=== PATIENT | female | born 1930 | race American Indian/Alaskan Native ===

== ENCOUNTER 2019-04-28 06:52 | Day surgery (SDC) | payer MEDICARE ==
[2019-04-28] MEDS ORDERED: XYLOCAINE 1%/ EPI 1:100,000 INFILTRATI ONE (08:37)
[2019-04-28] MEDS ORDERED: CALAN ONE (08:37)
[2019-04-28] MEDS ORDERED: HEPARIN/NS 5000 UNIT/500ML(CATH LAB) 1,000 ML IR ONE (08:37)
[2019-04-28] MEDS ORDERED: NITROGLYCERIN SYRINGE 3 ML ONE (08:39)
[2019-04-28] MEDS ORDERED: ANCEF/STERILE WATER 2 GM/20 ML 2 GM/20 ML SYRINGE IV ONE (08:40)
[2019-04-28 09:07] LABS: Hematocrit 34.9 % (30.3-42.9); Hemoglobin 11.7 gm/dl (10.1-14.3); Mean Corpuscular HGB Conc 33 % (30-34); Mean Corpuscular Volume 97 fl (79-97); Platelet Count 229 K/mm3 (140-440); Red Blood Count 3.59 M/mm3 (3.65-5.03); Red Cell Distribution Width 15.3 % (13.2-15.2)
[2019-04-28 09:19] LABS: Calcium 9.4 mg/dL (8.4-10.2)
[2019-04-28 09:33] LABS: INR 1.06 (0.87-1.13)
[2019-04-28 09:34] LABS: Partial Thromboplastin Time 25.2 Sec. (24.2-36.6)
[2019-04-28] MEDS ORDERED: SUBLIMAZE ONE (09:54)
[2019-04-28] MEDS: VERSED ONE ×2 (09:55→10:12)
[2019-04-28] MEDS ORDERED: NACL 0.9% 500 ML 500 ML IV SCH (10:00)
[2019-04-28] MEDS: HEPARIN 10,000 UNITS/10 ML ONE ×2 (10:04→10:06)
--- NOTE | 2019-04-28 12:26 | Short Stay Summary ---
Short Stay Documentation Date of service: 04/28/19 Narrative H&P: Nonhealing ulcerations of the feet with nonpalpable pedal pulses. See H&P. - History Principal diagnosis: PVD with ulceration H&P: obtained from office - Allergies and Medications Current Medications: Allergies Sulfa (Sulfonamide Antibiotics) Allergy (Unverified 04/28/19 06:53) Swelling Home Medications Medication Instructions Recorded Confirmed Last Taken Type Allopurinol [Zyloprim] 100 mg PO QDAY 04/28/19 04/28/19 04/27/19 History 1 tab Insulin Degludec [Tresiba 30 units SUB-Q QDAY 04/28/19 04/28/19 04/27/19 History Flextouch U-100] 30 units Losartan [Cozaar] 50 mg PO QDAY 04/28/19 04/28/19 04/27/19 History 1 tab Metoprolol [Lopressor TAB] 50 mg PO QDAY 04/28/19 04/28/19 04/27/19 History 1 tab Pregabalin [Lyrica] 50 mg PO QDAY 04/28/19 04/28/19 04/27/19 History 1 tab Simvastatin 20 mg PO QDAY 04/28/19 04/28/19 04/27/19 History 1 tab amLODIPine [Norvasc] 2.5 mg PO DAILY 04/28/19 04/28/19 04/27/19 History 1 tab Active Medications Sodium Chloride (Nacl 0.9% 500 Ml) 500 mls @ 50 mls/hr IV DIRECT [place] Last Admin: 04/28/19 10:03 Dose: 250 mls Documented by: - Physical exam General appearance: mild distress (at ulcer sites of feet) Lungs: Normal air movement Heart: Regular rate Gastrointestinal: obese Extremities: normal temperature, normal color, abnormal (ulcers of heels) - Brief post op/procedure progress note Date of procedure: 04/28/19 Pre-op diagnosis: PVD with ulceration Post-op diagnosis: same Procedure: Diagnostic angiogram of the lower extremities Total contrast use 6 mL contrast and CO2 gas Anesthesia: local (w/ conscious sedation) Surgeon: SUDHAKAR DUNN Estimated blood loss: minimal Condition: stable - Hospital course Hospital course: Tolerated procedure well. No issues. - Disposition Condition at discharge: Stable Disposition: DC- TO HOME OR SELFCARE - Discharge Diagnoses (1) Atherosclerotic PVD with ulceration Status: Acute (2) Critical ischemia of lower extremity Status: Acute (3) Diabetes mellitus with peripheral artery disease Status: Acute (4) CRI (chronic renal insufficiency) Status: Acute Short Stay Discharge Plan Activity: advance as tolerated Weight Bearing Status: Weight Bear as Tolerated Diet: diabetic Wound: keep clean and dry, other (do not lift more than 10 lbs with left hand for 1 week) Follow up with: STEPHEN CARTY [Other] - 7 Days
--- NOTE | 2019-04-28 12:51 | Operative Report ---
Operative Report Operative Report: EXAM: 1. Ultrasound-guided access of the left radial artery. 2. Selection of the abdominal aorta with CO2 contrast angiography. 3. Selection of the right superficial femoral artery with CO2 contrast angiography and angiography. 4. Selection of the left superficial femoral artery with CO2 contrast angiogra phy and angiography. DATE: 04/28/19 LITHOGRAPHIC ETCHER: SUDHAKAR DUNN MD INDICATION: Nonhealing ulcers of the bilateral lower extremities with peripheral vascular disease and nonpalpable pedal pulses. MEDICATIONS: Please see nursing report for full details. DEVICES: None. CONTRAST: 6 mLs of nonionic contrast and CO2. PROCEDURE: The risks, benefits, and alternatives were discussed with the family and the patient; written informed consent was obtained. Left wrist was prepped and draped in a sterile fashion. The left radial artery was patent under ultrasound evaluation. Under direct ultrasound guidance, left radial artery was accessed with a 21-gauge micropuncture needle. 0.018 inch wire was passed into the radial artery. Needle was exchanged for a 4/5 glidesheath slender sheath. Radial cocktail was administered. Additional heparin was administered. The descending thoracic aorta was selected, and the abdominal aorta was selected, and then the infrarenal abdominal aorta was selected. Pigtail CO2 angiography was performed. The right superficial femoral artery was selected and CO2 angiography was performed. Contrast angiography was performed of the tibial vessels excluding the proximal tibial vessels. Catheter was retracted and repeated CO2 angiography was performed until the entire right lower limb was evaluated. The left superficial femoral artery was selected and CO2 angiography was performed. Contrast angiography was performed of the tibial vessels. Catheter was retracted and repeated CO2 angiography was performed until the entire left lower limb was evaluated. All wires, catheters, and sheaths were removed ; TR bandage was applied. FINDINGS: AORTA: The infrarenal abdominal aorta is patent. RIGHT LOWER EXTREMITY: The right common iliac artery, right internal iliac artery, right external iliac artery, right common femoral artery, and right profunda femoral artery are patent. The right proximal superficial femoral artery has a 10-20% narrowing. The right mid superficial femoral artery has a 20% narrowing. The right distal superficial femoral artery has a 80-90% 5 cm area of narrowing. The right above the knee popliteal artery has a 30% area of narrowing. Right mid popliteal artery has a 70-80% 4-5 cm area of narrowing. The right below the knee popliteal artery has a 50% area of narrowing. The anterior tibial artery is patent for the first few centimeters and then becomes atretic without reconstitution at the ankle. The tibioperoneal trunk is patent. The peroneal artery is patent for 3-4 cm and is then occluded without reconstitution at the ankle. The right posterior tibial artery is the dominant foot of the foot and is only 2.5 mm in diameter. There may be a proximal posterior tibial artery stenosis but it is difficult to see on CO2 angiography. LEFT LOWER EXTREMITY: The left common iliac artery, left internal iliac artery, left external iliac artery, left common femoral artery, and left profundofemoral artery are patent. The left superficial femoral artery has a 30%-40% ostial narrowing. The left mid superficial femoral artery is patent. The left distal superficial femoral artery has a 5 cm 90% narrowing. The left popliteal artery has a 7 cm 70% narrowing which extends from the above the knee popliteal to the mid popliteal artery. Below the knee popliteal artery is patent. The anterior tibial artery is patent for approximately 10 cm and subsequently becomes atretic with very diminutive late reconstitution at the ankle. The tibioperoneal trunk is patent and very short. The peroneal artery is patent for approximately 10 cm and then becomes with very late diminutive reconstitution at the ankle. The left posterior tibial artery has a small 20% narrowing at its ostium but is otherwise patent throughout the course and provides good flow to the ankle. IMPRESSION: Successful bilateral lower extremity angiography and selections.
[2019-04-28 13:41] VITALS: BP 151/78
== END 2019-04-28 14:20 | disposition home or self-care (01) ==
LOC: CATHLABREC 06:52
PROVIDERS: ATTEND Radiology Diagnostic Radiology
DX: I70.245 Atherosclerosis of native arteries of left leg with ulceration of other part of foot (principal); I70.235 Atherosclerosis of native arteries of right leg with ulceration of other part of foot; E11.51 Type 2 diabetes mellitus with diabetic peripheral angiopathy without gangrene; I10 Essential (primary) hypertension; M10.9 Gout, unspecified; Z88.2 Allergy status to sulfonamides; Z79.4 Long term (current) use of insulin; Z79.899 Other long term (current) drug therapy; Z79.01 Long term (current) use of anticoagulants
CPT/HCPCS: 36247; 36415; 75625; 75716; 76937; 80048; 82962; 85027; 85610; 85730; 99156; 99157; C1769; C1887; C1894; J0690; J1644; J2250; J3010; J7040; Q9967

== ENCOUNTER 2019-10-13 23:11 | Inpatient (IN) | payer MEDICARE ==
[2019-10-14 00:13] LABS: Hemoglobin 12.3 gm/dl (10.1-14.3); Mean Corpuscular HGB Conc 33 % (30-34); Mean Corpuscular Volume 98 fl (79-97); Platelet Count 231 K/mm3 (140-440); Red Blood Count 3.77 M/mm3 (3.65-5.03); Red Cell Distribution Width 14.8 % (13.2-15.2)
[2019-10-14 00:28] LABS: Calcium 9.5 mg/dL (8.4-10.2)
--- NOTE | 2019-10-14 01:46 | Emergency Department Report ---
ED Abdominal Pain HPI - General Chief Complaint: Abdominal Pain Stated Complaint: STOMACH PAIN Time Seen by Provider: 10/14/19 01:04 Source: patient, family (2 daughters at the bedside), old records reviewed Mode of arrival: Wheelchair Limitations: No Limitations - History of Present Illness Initial Comments: Mrs. Yousif is a very pleasant 89 yo female with hx of IDDM, HTN, gout, PVD who presents with 3 weeks of RLQ abdominal pain and vomiting for 3 weeks. The pain has been intermittent but more severe and persistent recently. She has had a recent BM. Ate lunch 1 PM. Now severe sharp pain. NO radiation. Severe nausea with vomiting. NO hx of colonoscopy as she can recall. Hx of tubal ligation. NO abdominal surgery otherwise. In April, she underwent PVD evaluation with angiography by Dr. Driver. She has limited mobility due to PVD and leg pain. She can weightbear and transfer but needs assistance with ambulation. Pain is worse with eating. She is followed at [facility] Complaint: abdominal pain -: Gradual, week(s) (3) Location: RLQ Radiation: none Migration to: no migration Severity: severe Severity scale (0 -10): 8 Quality: sharp Consistency: constant Improves With: nothing Worsens With: eating Associated Symptoms: nausea, vomiting - Related Data Home Medications Medication Instructions Recorded Confirmed Last Taken Allopurinol [Zyloprim] 100 mg PO QDAY 04/28/19 04/28/19 04/27/19 1 tab Insulin Degludec (Nf) [Tresiba 30 units SUB-Q QDAY 04/28/19 04/28/19 04/27/19 Flextouch U-100 (Nf)] 30 units Losartan [Cozaar] 50 mg PO QDAY 04/28/19 04/28/19 04/27/19 1 tab Metoprolol [Lopressor TAB] 50 mg PO QDAY 04/28/19 04/28/19 04/27/19 1 tab Pregabalin [Lyrica] 50 mg PO QDAY 04/28/19 04/28/19 04/27/19 1 tab Simvastatin 20 mg PO QDAY 04/28/19 04/28/19 04/27/19 1 tab amLODIPine [Norvasc] 2.5 mg PO DAILY 04/28/19 04/28/19 04/27/19 1 tab Allergies Allergy/AdvReac Type Severity Reaction Status Date / Time Sulfa (Sulfonamide Allergy Swelling Unverified 04/28/19 06:53 Antibiotics) ED Review of Systems ROS: Stated complaint: STOMACH PAIN Other details as noted in HPI Comment: All other systems reviewed and negative Constitutional: malaise. denies: chills, fever Cardiovascular: denies: chest pain Gastrointestinal: abdominal pain, nausea, vomiting ED Past Medical Hx - Past Medical History Previous Medical History?: Yes Hx Hypertension: Yes Hx Diabetes: Yes - Surgical History Past Surgical History?: Yes Additional Surgical History: Vascular surgery to open up veins - Social History Smoking Status: Never Smoker - Medications Home Medications: Home Medications Medication Instructions Recorded Confirmed Last Taken Type Allopurinol [Zyloprim] 100 mg PO QDAY 04/28/19 04/28/19 04/27/19 History 1 tab Insulin Degludec (Nf) [Tresiba 30 units SUB-Q QDAY 04/28/19 04/28/19 04/27/19 History Flextouch U-100 (Nf)] 30 units Losartan [Cozaar] 50 mg PO QDAY 04/28/19 04/28/19 04/27/19 History 1 tab Metoprolol [Lopressor TAB] 50 mg PO QDAY 04/28/19 04/28/19 04/27/19 History 1 tab Pregabalin [Lyrica] 50 mg PO QDAY 04/28/19 04/28/19 04/27/19 History 1 tab Simvastatin 20 mg PO QDAY 04/28/19 04/28/19 04/27/19 History 1 tab amLODIPine [Norvasc] 2.5 mg PO DAILY 04/28/19 04/28/19 04/27/19 History 1 tab ED Physical Exam - General Limitations: No Limitations General appearance: alert, other (appears in pain, appears ill) - Head Head exam: Present: atraumatic, normocephalic - Eye Eye exam: Present: normal appearance - ENT ENT exam: Present: mucous membranes moist - Neck Neck exam: Present: normal inspection, full ROM - Respiratory Respiratory exam: Present: normal lung sounds bilaterally. Absent: respiratory distress, wheezes, rales, rhonchi - Cardiovascular Cardiovascular Exam: Present: regular rate, normal rhythm, normal heart sounds. Absent: systolic murmur, diastolic murmur, rubs, gallop - GI/Abdominal GI/Abdominal exam: Present: soft, tenderness, guarding. Absent: distended, rebound - Neurological Exam Neurological exam: Present: alert, oriented X3 - Psychiatric Psychiatric exam: Present: normal affect, normal mood - Skin Skin exam: Present: warm, dry, intact, normal color. Absent: rash ED Course Vital Signs 10/14/19 01:05 Temperature 97.4 F L Pulse Rate 91 H Respiratory 19 Rate Blood Pressure 156/70 [Right] O2 Sat by Pulse 99 Oximetry ED Medical Decision Making - Lab Data Result diagrams: 10/13/19 23:40 10/13/19 23:40 - Radiology Data Radiology results: report reviewed CT abdomen and pelvis: Irregular thickened bladder wall likely infectious process, cholelithiasis - Medical Decision Making Mrs. Yousif presents with 3 weeks of abdominal pain nausea vomiting. CT abdomen and pelvis reveals cholelithiasis and cystitis findings of cystitis. Due to severe discomfort and tenderness I have consulted general surgeon on-call Dr. Benson. Admitted to hospitalist service IV abx IVF and IV analgesia provided in the ED Critical care attestation.: If time is entered above; I have spent that time in minutes in the direct care of this critically ill patient, excluding procedure time. ED Disposition Clinical Impression: Acute cystitis, Cholelithiasis, Acute abdominal pain Disposition: OP ADMIT IP TO THIS HOSP Is pt being admited?: Yes Does the pt Need Aspirin: No Condition: Stable
--- NOTE | 2019-10-14 02:07 | Cat Scan Report ---
CT ABDOMEN AND PELVIS WITHOUT CONTRAST INDICATION / CLINICAL INFORMATION: RLQ pain. Right lower quadrant abdominal pain TECHNIQUE: Axial CT images were obtained through the abdomen and pelvis without IV contrast. All CT scans at [facility] hospital location are performed using CT dose reduction for ALARA by means of automated exposure control. COMPARISON: None available. FINDINGS: LOWER CHEST: No significant abnormality. LIVER: No significant abnormality. GALLBLADDER: Gallstones. BILE DUCTS: No significant abnormality. PANCREAS: No significant abnormality. SPLEEN: No significant abnormality. ADRENALS: No significant abnormality. RIGHT KIDNEY and URETER: No significant abnormality. LEFT KIDNEY and URETER: No significant abnormality. STOMACH and SMALL BOWEL: No significant abnormality. COLON: No significant abnormality. APPENDIX: No significant abnormality. PERITONEUM: No free fluid. No free air. No fluid collection. LYMPH NODES: No significant adenopathy. AORTA and ARTERIES: No significant abnormality. IVC and VEINS: No significant abnormality. URINARY BLADDER: Diffusely thickened and irregular wall.. REPRODUCTIVE ORGANS: A large amount of gas is noted within the endometrial canal. 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 ADDITIONAL FINDINGS: None. SKELETAL SYSTEM: No significant abnormality. IMPRESSION: Abnormally thickened urinary bladder wall which could be secondary to infectious cystitis. Gallstones with nonobstructive nephrolithiasis incidentally noted. Signer Name: Ian Mckeon MD Signed: 10/14/2019 2:02 AM Workstation Name: [employer]
[2019-10-14] MEDS ORDERED: cefTRIAXone/NS 2 GM/100 ML 2 GM/100 ML BAG IV ONE (02:59)
[2019-10-14 03:25] LABS: Amorphous Crystals,Urine Few; Bacteria,Urine 4+ /HPF (Negative); Bilirubin,Urine NEG (Negative); Blood,Urine MOD (Negative); Color,Urine Yellow (Yellow); Mucus,Urine FEW /HPF; Urobilinogen,Urine < 2.0 mg/dL (<2.0)
[2019-10-14 04:20] LABS: Band Neutrophils # (Manual) 0.1 K/mm3; Basophils % (Manual) 0 % (0.0-1.8); Eosinophils % (Manual) 0 % (0.0-4.3); Total Cells Counted 100
[2019-10-14 04:23] LABS: Platelet Estimate Consistent w Auto
[2019-10-14] MEDS ORDERED: DEXTROSE 50% IN WATER (25GM) 50 ML SYRINGE IV PRN (04:34)
[2019-10-14] MEDS ORDERED: ACETAMINOPHEN 325 MG TAB PO PRN (04:34)
--- NOTE | 2019-10-14 04:51 | Progress Note ---
Assessment and Plan Full consult dictated: 89 y/o female non specific abd pain. + N&V CT - gallstones. no evidence of cholecystitis. Thickened urinary bladder and borderline renal function. denies dysuria. labs as below. cystitis? Keep NPO HIDA scan. GB US will follow. Chief Complaint: Abdominal Pain Stated Complaint: STOMACH PAIN Time Seen by Provider: 10/14/19 01:04 Source: patient, family (2 daughters at the bedside), old records reviewed Mode of arrival: Wheelchair Limitations: No Limitations - History of Present Illness Initial Comments: Mrs. Yousif is a very pleasant 89 yo female with hx of IDDM, HTN, gout, PVD who presents with 3 weeks of RLQ abdominal pain and vomiting for 3 weeks. The pain has been intermittent but more severe and persistent recently. She has had a recent BM. Ate lunch 1 PM. Now severe sharp pain. NO radiation. Severe nausea with vomiting. NO hx of colonoscopy as she can recall. Hx of tubal ligation. NO abdominal surgery otherwise. In April, she underwent PVD evaluation with angiography by Dr. Driver. She has limited mobility due to PVD and leg pain. She can weightbear and transfer but needs assistance with ambulation. Pain is worse with eating. [facility] Complaint: abdominal pain -: Gradual, week(s) (3) Location: RLQ Radiation: none Migration to: no migration Severity: severe Severity scale (0 -10): 8 Quality: sharp Consistency: constant Improves With: nothing Worsens With: eating Associated Symptoms: nausea, vomiting Selected Entries 10/14/19 01:05 Temperature 97.4 F L Pulse Rate 91 H Respiratory 19 Rate Blood Pressure 156/70 [Right] Laboratory Tests 10/13/19 10/13/19 23:40 23:40 WBC 8.8 Hgb 12.3 Hct 37.0 Sodium 141 Potassium 4.9 Chloride 109.3 H BUN 39 H Creatinine 2.1 H Total Bilirubin 0.30 AST 18 ALT 28 Alkaline Phosphatase 112 Lipase 31 Objective Vital Signs - 12hr 10/14/19 01:05 Temperature 97.4 F L Pulse Rate 91 H Respiratory 19 Rate Blood Pressure 156/70 [Right] O2 Sat by Pulse 99 Oximetry - Labs 10/13/19 23:40 10/13/19 23:40 Diabetes panel 10/13/19 Range/Units 23:40 Sodium 141 (137-145) mmol/L Potassium 4.9 (3.6-5.0) mmol/L Chloride 109.3 H (98-107) mmol/L Carbon Dioxide 19 L (22-30) mmol/L BUN 39 H (7-17) mg/dL Creatinine 2.1 H (0.7-1.2) mg/dL Glucose 204 H (65-100) mg/dL Calcium 9.5 (8.4-10.2) mg/dL AST 18 (5-40) units/L ALT 28 (7-56) units/L Alkaline Phosphatase 112 (35-129) units/L Total Protein 7.0 (6.3-8.2) g/dL Albumin 4.0 (3.9-5) g/dL Calcium panel 10/13/19 Range/Units 23:40 Calcium 9.5 (8.4-10.2) mg/dL Albumin 4.0 (3.9-5) g/dL Pituitary panel 10/13/19 Range/Units 23:40 Sodium 141 (137-145) mmol/L Potassium 4.9 (3.6-5.0) mmol/L Chloride 109.3 H (98-107) mmol/L Carbon Dioxide 19 L (22-30) mmol/L BUN 39 H (7-17) mg/dL Creatinine 2.1 H (0.7-1.2) mg/dL Glucose 204 H (65-100) mg/dL Calcium 9.5 (8.4-10.2) mg/dL Adrenal panel 10/13/19 Range/Units 23:40 Sodium 141 (137-145) mmol/L Potassium 4.9 (3.6-5.0) mmol/L Chloride 109.3 H (98-107) mmol/L Carbon Dioxide 19 L (22-30) mmol/L BUN 39 H (7-17) mg/dL Creatinine 2.1 H (0.7-1.2) mg/dL Glucose 204 H (65-100) mg/dL Calcium 9.5 (8.4-10.2) mg/dL Total Bilirubin 0.30 (0.1-1.2) mg/dL AST 18 (5-40) units/L ALT 28 (7-56) units/L Alkaline Phosphatase 112 (35-129) units/L Total Protein 7.0 (6.3-8.2) g/dL Albumin 4.0 (3.9-5) g/dL
[2019-10-14] MEDS ORDERED: SODIUM CHLORIDE 0.45% 1000 ML 1,000 ML IV SCH (05:00)
--- NOTE | 2019-10-14 05:09 | History and Physical Report ---
<MIRACLE MACKAY - Last Filed: 10/14/19 05:16> History of Present Illness Date of examination: 10/14/19 Date of admission: 10/14/2019 Chief complaint: N/V, abdominal pain History of present illness: 89-year-old -[place]ij[place] female with history of recurrent urinary tract infections, IDDM, hypertension, gout, PVD who presents to [facility] with complaints of nausea, vomiting, abdominal pain for the past 3 weeks. Patient's daughter are present at bedside and have persisted in providing history. According to patient's daughter patient has experienced intermittent abdominal pain, nausea and vomiting for the past 3 weeks however over the past day her complaints are more frequent/persistent. She complains of right upper quadrant 5/10 abdominal pain. The pain is unprovoked and relieved by pain medication and rest. Denies fever, chill, diarrhea or recent sick contact. Past History Past Medical History: diabetes, hypertension, PVD, other (gout, recurrent UTI) Past Surgical History: Other (Vascular surgery to open up veins 04/2019) Social history: lives with family Family history: no significant family history Medications and Allergies Allergies Allergy/AdvReac Type Severity Reaction Status Date / Time Sulfa (Sulfonamide Allergy Swelling Unverified 04/28/19 06:53 Antibiotics) Home Medications Medication Instructions Recorded Confirmed Last Taken Type Allopurinol [Zyloprim] 100 mg PO QDAY 04/28/19 10/14/19 04/27/19 History 1 tab Insulin Degludec (Nf) [Tresiba 30 units SUB-Q QDAY 04/28/19 10/14/19 04/27/19 History Flextouch U-100 (Nf)] 30 units Losartan [Cozaar] 50 mg PO QDAY 04/28/19 10/14/19 04/27/19 History 1 tab Metoprolol [Lopressor TAB] 50 mg PO QDAY 04/28/19 10/14/19 04/27/19 History 1 tab Pregabalin [Lyrica] 50 mg PO QDAY 04/28/19 10/14/19 04/27/19 History 1 tab Simvastatin 20 mg PO QDAY 04/28/19 10/14/19 04/27/19 History 1 tab amLODIPine [Norvasc] 2.5 mg PO DAILY 04/28/19 10/14/19 04/27/19 History 1 tab Clopidogrel [Plavix] 75 mg PO QDAY 10/14/19 10/14/19 Unknown History DULoxetine [Cymbalta] 30 mg PO QDAY 10/14/19 10/14/19 Unknown History Esomeprazole Magnesium [NexIUM] 40 mg PO QDAY 10/14/19 10/14/19 Unknown History Ondansetron [Zofran Odt] 4 mg PO Q12HR PRN 10/14/19 10/14/19 Unknown History Active Meds: Active Medications Acetaminophen (Tylenol) 650 mg PO Q4H PRN PRN Reason: Pain MILD(1-3)/Fever >100.5/[facility] Allopurinol (Zyloprim) 100 mg PO QDAY [facility] Amlodipine Besylate (Amlodipine) 2.5 mg PO DAILY [facility] Clopidogrel Bisulfate (Plavix) 75 mg PO QDAY [facility] Dextrose (D50w (25gm) Syringe) 50 ml IV Q30MIN PRN; Protocol PRN Reason: Hypoglycemia Docusate Sodium (Colace) 100 mg PO BID [facility] Duloxetine HCl (Cymbalta) 30 mg PO QDAY [facility] Sodium Chloride (Nacl 0.45% 1000 Ml) 1,000 mls @ 100 mls/hr IV DIRECT [place] Ceftriaxone Sodium (Rocephin/Ns 1 Gm/50 Ml) 1 gm in 50 mls @ 100 mls/hr IV Q24HR [place]; Protocol Insulin Glargine (Lantus) 10 units SUB-Q QHS [facility] Insulin Human Lispro (Humalog) 0 unit SUB-Q ACHS [place]; Protocol Losartan Potassium (Cozaar) 50 mg PO QDAY [facility] Metoprolol Tartrate (Metoprolol) 50 mg PO QDAY [facility] Miscellaneous Medication (Simvastatin [Simvastatin]) 20 mg PO QDAY [facility] Ondansetron HCl (Zofran) 4 mg IV Q8H PRN PRN Reason: Nausea And Vomiting Sodium Chloride (Sodium Chloride Flush Syringe 10 Ml) 10 ml IV BID [facility] Sodium Chloride (Sodium Chloride Flush Syringe 10 Ml) 10 ml IV PRN PRN PRN Reason: LINE FLUSH Review of Systems All systems: negative Constitutional: malaise Gastrointestinal: abdominal pain, nausea, vomiting Exam - Physical Exam Narrative exam: General appearance: Present:mild discomfort, alert and orientedx3, well developed, older adult female - EENT Eyes: Present: PERRL, EOM intact ENT: Hard of hearing, missing teeth - Neck Neck: Present: supple, normal ROM - Respiratory Respiratory effort: Non-labored Respiratory: bilateral: CTA with diminished bases bilaterally - Cardiovascular Heart rate:91 (bpm) Rhythm:SR Heart Sounds: Present: S1, S2. - Extremities Extremities: no ischemia, pulses intact, BLE edema R>L - Peripheral Assessment Peripheral Pulses: within normal limits - Abdominal General gastrointestinal: soft, tenderness to RUQ, normal bowel sounds, - Integumentary Integumentary: Present: warm, dry - Musculoskeletal Musculoskeletal: generalized weakness, able to move all extremities -Neurological Neurological: CN II-XII grossly intact - Psychiatric Psychiatric: cooperative - Constitutional Vitals: Temp Pulse Resp BP Pulse Ox 97.4 F L 91 H 19 156/70 99 10/14/19 01:05 10/14/19 01:05 10/14/19 01:05 10/14/19 01:05 10/14/19 01:05 Results - Labs CBC & Chem 7: 10/13/19 23:40 10/13/19 23:40 Labs: Laboratory Last Values WBC 8.8 K/mm3 (4.5-11.0) 10/13/19 23:40 RBC 3.77 M/mm3 (3.65-5.03) 10/13/19 23:40 Hgb 12.3 gm/dl (10.1-14.3) 10/13/19 23:40 Hct 37.0 % (30.3-42.9) 10/13/19 23:40 MCV 98 fl (79-97) H 10/13/19 23:40 MCH 33 pg (28-32) H 10/13/19 23:40 MCHC 33 % (30-34) 10/13/19 23:40 RDW 14.8 % (13.2-15.2) 10/13/19 23:40 Plt Count 231 K/mm3 (140-440) 10/13/19 23:40 Add Manual Diff Complete 10/13/19 23:40 Total Counted 100 10/13/19 23:40 Seg Neutrophils % Commutator Presser 10/13/19 23:40 Seg Neuts % (Manual) 91.0 % (40.0-70.0) H 10/13/19 23:40 Band Neutrophils % 1.0 % 10/13/19 23:40 Lymphocytes % (Manual) 6.0 % (13.4-35.0) L 10/13/19 23:40 Reactive Lymphs % (Man) 0 % 10/13/19 23:40 Monocytes % (Manual) 2.0 % (0.0-7.3) 10/13/19 23:40 Eosinophils % (Manual) 0 % (0.0-4.3) 10/13/19 23:40 Basophils % (Manual) 0 % (0.0-1.8) 10/13/19 23:40 Metamyelocytes % 0 % 10/13/19 23:40 Myelocytes % 0 % 10/13/19 23:40 Promyelocytes % 0 % 10/13/19 23:40 Blast Cells % 0 % 10/13/19 23:40 Nucleated RBC % Not Reportable 10/13/19 23:40 Seg Neutrophils # Man 8.0 K/mm3 (1.8-7.7) H 10/13/19 23:40 Band Neutrophils # 0.1 K/mm3 10/13/19 23:40 Lymphocytes # (Manual) 0.5 K/mm3 (1.2-5.4) L 10/13/19 23:40 Abs React Lymphs (Man) 0.0 K/mm3 10/13/19 23:40 Monocytes # (Manual) 0.2 K/mm3 (0.0-0.8) 10/13/19 23:40 Eosinophils # (Manual) 0.0 K/mm3 (0.0-0.4) 10/13/19 23:40 Basophils # (Manual) 0.0 K/mm3 (0.0-0.1) 10/13/19 23:40 Metamyelocytes # 0.0 K/mm3 10/13/19 23:40 Myelocytes # 0.0 K/mm3 10/13/19 23:40 Promyelocytes # 0.0 K/mm3 10/13/19 23:40 Blast Cells # 0.0 K/mm3 10/13/19 23:40 WBC Morphology Not Reportable 10/13/19 23:40 Hypersegmented Neuts Not Reportable 10/13/19 23:40 Hyposegmented Neuts Not Reportable 10/13/19 23:40 Hypogranular Neuts Not Reportable 10/13/19 23:40 Smudge Cells Not Reportable 10/13/19 23:40 Toxic Granulation Not Reportable 10/13/19 23:40 Toxic Vacuolation Not Reportable 10/13/19 23:40 Dohle Bodies Not Reportable 10/13/19 23:40 Pelger-Huet Anomaly Not Reportable 10/13/19 23:40 Sami Rods Not Reportable 10/13/19 23:40 Platelet Estimate Consistent w auto 10/13/19 23:40 Clumped Platelets Not Reportable 10/13/19 23:40 Plt Clumps, EDTA Not Reportable 10/13/19 23:40 Large Platelets Not Reportable 10/13/19 23:40 Giant Platelets Not Reportable 10/13/19 23:40 Platelet Satelliting Not Reportable 10/13/19 23:40 Plt Morphology Comment Not Reportable 10/13/19 23:40 RBC Morphology Not Reportable 10/13/19 23:40 Dimorphic RBCs Not Reportable 10/13/19 23:40 Polychromasia Not Reportable 10/13/19 23:40 Hypochromasia Not Reportable 10/13/19 23:40 Poikilocytosis Not Reportable 10/13/19 23:40 Anisocytosis Not Reportable 10/13/19 23:40 Microcytosis Not Reportable 10/13/19 23:40 Macrocytosis Not Reportable 10/13/19 23:40 Spherocytes Not Reportable 10/13/19 23:40 Pappenheimer Bodies Not Reportable 10/13/19 23:40 Sickle Cells Not Reportable 10/13/19 23:40 Target Cells Not Reportable 10/13/19 23:40 Tear Drop Cells Not Reportable 10/13/19 23:40 Ovalocytes Not Reportable 10/13/19 23:40 Helmet Cells Not Reportable 10/13/19 23:40 Amaya-Coolin Bodies Not Reportable 10/13/19 23:40 Gilman Rings Not Reportable 10/13/19 23:40 Pelham Cells Not Reportable 10/13/19 23:40 Bite Cells Not Reportable 10/13/19 23:40 Crenated Cell Not Reportable 10/13/19 23:40 Elliptocytes Rare 10/13/19 23:40 Acanthocytes (Spur) Not Reportable 10/13/19 23:40 Rouleaux Not Reportable 10/13/19 23:40 Hemoglobin C Crystals Not Reportable 10/13/19 23:40 Schistocytes Not Reportable 10/13/19 23:40 Malaria parasites Not Reportable 10/13/19 23:40 Michael Bodies Not Reportable 10/13/19 23:40 Hem Pathologist Commnt No 10/13/19 23:40 Sodium 141 mmol/L (137-145) 10/13/19 23:40 Potassium 4.9 mmol/L (3.6-5.0) 10/13/19 23:40 Chloride 109.3 mmol/L (98-107) H 10/13/19 23:40 Carbon Dioxide 19 mmol/L (22-30) L 10/13/19 23:40 Anion Gap 18 mmol/L 10/13/19 23:40 BUN 39 mg/dL (7-17) H 10/13/19 23:40 Creatinine 2.1 mg/dL (0.7-1.2) H 10/13/19 23:40 Estimated GFR 27 ml/min 10/13/19 23:40 BUN/Creatinine Ratio 19 % 10/13/19 23:40 Glucose 204 mg/dL (65-100) H 10/13/19 23:40 Lactic Acid 1.60 mmol/L (0.7-2.0) 10/14/19 01:38 Calcium 9.5 mg/dL (8.4-10.2) 10/13/19 23:40 Total Bilirubin 0.30 mg/dL (0.1-1.2) 10/13/19 23:40 AST 18 units/L (5-40) 10/13/19 23:40 ALT 28 units/L (7-56) 10/13/19 23:40 Alkaline Phosphatase 112 units/L (35-129) 10/13/19 23:40 Total Protein 7.0 g/dL (6.3-8.2) 10/13/19 23:40 Albumin 4.0 g/dL (3.9-5) 10/13/19 23:40 Albumin/Globulin Ratio 1.3 % 10/13/19 23:40 Lipase 31 units/L (13-60) 10/13/19 23:40 Urine Color Yellow (Yellow) 10/14/19 02:19 Urine Turbidity Slightly-cloudy (Clear) 10/14/19 02:19 Urine pH 5.0 (5.0-7.0) 10/14/19 02:19 Ur Specific [place] 1.010 (1.003-1.030) 10/14/19 02:19 Urine Protein 100 mg/dl mg/dL (Negative) 10/14/19 02:19 Urine Glucose (UA) Neg mg/dL (Negative) 10/14/19 02:19 Urine Ketones Neg mg/dL (Negative) 10/14/19 02:19 Urine Blood Mod (Negative) 10/14/19 02:19 Urine Nitrite Neg (Negative) 10/14/19 02:19 Urine Bilirubin Neg (Negative) 10/14/19 02:19 Urine Urobilinogen < 2.0 mg/dL (<2.0) 10/14/19 02:19 Ur Leukocyte Esterase Mod (Negative) 10/14/19 02:19 Urine WBC (Auto) 64.0 /HPF (0.0-6.0) H 10/14/19 02:19 Urine RBC (Auto) 4.0 /HPF (0.0-6.0) 10/14/19 02:19 U Epithel Cells (Auto) 1.0 /HPF (0-13.0) 10/14/19 02:19 Urine Bacteria (Auto) 4+ /HPF (Negative) 10/14/19 02:19 Amorphous Crystals Few 10/14/19 02:19 Urine Mucus Few /HPF 10/14/19 02:19 - Imaging and Cardiology Imaging and Cardiology: CT Abd/Pelvis: FINDINGS: LOWER CHEST: No significant abnormality. LIVER: No significant abnormality. GALLBLADDER: Gallstones. BILE DUCTS: No significant abnormality. PANCREAS: No significant abnormality. SPLEEN: No significant abnormality. ADRENALS: No significant abnormality. RIGHT KIDNEY and URETER: No significant abnormality. LEFT KIDNEY and URETER: No significant abnormality. STOMACH and SMALL BOWEL: No significant abnormality. COLON: No significant abnormality. APPENDIX: No significant abnormality. PERITONEUM: No free fluid. No free air. No fluid collection. LYMPH NODES: No significant adenopathy. AORTA and ARTERIES: No significant abnormality. IVC and VEINS: No significant abnormality. URINARY BLADDER: Diffusely thickened and irregular wall.. REPRODUCTIVE ORGANS: A large amount of gas is noted within the endometrial canal. 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 ADDITIONAL FINDINGS: None. SKELETAL SYSTEM: No significant abnormality. IMPRESSION: Abnormally thickened urinary bladder wall which could be secondary to infectious cystitis. Gallstones with nonobstructive nephrolithiasis incidentally noted. Assessment and Plan Assessment and plan: 89-year-old -A[place]ijani female with history of recurrent urinary tract infections, IDDM, hypertension, gout, PVD who presents to [facility] with complaints of nausea, vomiting, abdominal pain for the past 3 weeks, which has become more persistent over the past day. UTI -Hx of recurrent UTI -Urine WBC >64 -CT Abdomen pelvis showed Abnormally thickened urinary bladder wall which could be secondary to infectious cystitis. -Urine culture pending -On IV Abx CALLUM ??CKD -Cr on admission 2.1 -On IVF -Avoid nephrotoxin agents -Renal dose all meds -Continue to monitor renal function Cholelithiasis -Seen on CT Abdomen Pelvis -Receiving IVF -Continue supportive care Acute Abdominal Pain -c/o n/v, and abdominal pain x3 weeks -Continue Supportive Care -Clear diet -Dr. Benson (General Surgery) consulted IDDM -POC BG monitoring -Scheduled Lantus -SSI coverage prn -Hgb A1c pending HTN -Monitor BP -Resume home antihypertensive meds Hx Gout -Continue Allopurinol HX PVD -continue plavix and statin DVT PPX -on Plavix -on SCD's Advance Directives: No VTE prophylaxis?: Chemical Plan of care discussed with patient/family: Yes <EDI EDWARDS - Last Filed: 10/14/19 06:09> History of Present Illness Date of admission: 10/14/19 04:34 Medications and Allergies Active Meds: Active Medications Acetaminophen (Tylenol) 650 mg PO Q4H PRN PRN Reason: Pain MILD(1-3)/Fever >100.5/[facility] Allopurinol (Zyloprim) 100 mg PO QDAY [facility] Amlodipine Besylate (Amlodipine) 2.5 mg PO DAILY [facility] Clopidogrel Bisulfate (Plavix) 75 mg PO QDAY [facility] Dextrose (D50w (25gm) Syringe) 0 ml IV Q30MIN PRN; Protocol PRN Reason: Hypoglycemia Docusate Sodium (Colace) 100 mg PO BID [facility] Duloxetine HCl (Cymbalta) 30 mg PO QDAY [facility] Sodium Chloride (Nacl 0.45% 1000 Ml) 1,000 mls @ 100 mls/hr IV DIRECT [place] Last Admin: 10/14/19 05:10 Dose: 100 mls/hr Documented by: Ceftriaxone Sodium (Rocephin/Ns 1 Gm/50 Ml) 1 gm in 50 mls @ 100 mls/hr IV Q24HR [facility]; Protocol Insulin Glargine (Lantus) 10 units SUB-Q QHS [facility] Insulin Human Lispro (Humalog) 0 unit SUB-Q ACHS [facility]; Protocol Losartan Potassium (Cozaar) 50 mg PO QDAY [facility] Metoprolol Tartrate (Metoprolol) 50 mg PO QDAY [facility] Ondansetron HCl (Zofran) 4 mg IV Q8H PRN PRN Reason: Nausea And Vomiting Last Admin: 10/14/19 05:11 Dose: 4 mg Documented by: Pravastatin Sodium (Pravachol) 40 mg PO QDAY [facility] Sodium Chloride (Sodium Chloride Flush Syringe 10 Ml) 10 ml IV BID [facility] Sodium Chloride (Sodium Chloride Flush Syringe 10 Ml) 10 ml IV PRN PRN PRN Reason: LINE FLUSH Exam - Constitutional Vitals: Temp Pulse Resp BP Pulse Ox 97.4 F L 93 H 16 136/70 99 10/14/19 01:05 10/14/19 06:00 10/14/19 06:00 10/14/19 06:00 10/14/19 06:00 Results - Labs CBC & Chem 7: 10/13/19 23:40 10/13/19 23:40 Labs: Laboratory Last Values WBC 8.8 K/mm3 (4.5-11.0) 10/13/19 23:40 RBC 3.77 M/mm3 (3.65-5.03) 10/13/19 23:40 Hgb 12.3 gm/dl (10.1-14.3) 10/13/19 23:40 Hct 37.0 % (30.3-42.9) 10/13/19 23:40 MCV 98 fl (79-97) H 10/13/19 23:40 MCH 33 pg (28-32) H 10/13/19 23:40 MCHC 33 % (30-34) 10/13/19 23:40 RDW 14.8 % (13.2-15.2) 10/13/19 23:40 Plt Count 231 K/mm3 (140-440) 10/13/19 23:40 Add Manual Diff Complete 10/13/19 23:40 Total Counted 100 10/13/19 23:40 Seg Neutrophils % Commutator Presser 10/13/19 23:40 Seg Neuts % (Manual) 91.0 % (40.0-70.0) H 10/13/19 23:40 Band Neutrophils % 1.0 % 10/13/19 23:40 Lymphocytes % (Manual) 6.0 % (13.4-35.0) L 10/13/19 23:40 Reactive Lymphs % (Man) 0 % 10/13/19 23:40 Monocytes % (Manual) 2.0 % (0.0-7.3) 10/13/19 23:40 Eosinophils % (Manual) 0 % (0.0-4.3) 10/13/19 23:40 Basophils % (Manual) 0 % (0.0-1.8) 10/13/19 23:40 Metamyelocytes % 0 % 10/13/19 23:40 Myelocytes % 0 % 10/13/19 23:40 Promyelocytes % 0 % 10/13/19 23:40 Blast Cells % 0 % 10/13/19 23:40 Nucleated RBC % Not Reportable 10/13/19 23:40 Seg Neutrophils # Man 8.0 K/mm3 (1.8-7.7) H 10/13/19 23:40 Band Neutrophils # 0.1 K/mm3 10/13/19 23:40 Lymphocytes # (Manual) 0.5 K/mm3 (1.2-5.4) L 10/13/19 23:40 Abs React Lymphs (Man) 0.0 K/mm3 10/13/19 23:40 Monocytes # (Manual) 0.2 K/mm3 (0.0-0.8) 10/13/19 23:40 Eosinophils # (Manual) 0.0 K/mm3 (0.0-0.4) 10/13/19 23:40 Basophils # (Manual) 0.0 K/mm3 (0.0-0.1) 10/13/19 23:40 Metamyelocytes # 0.0 K/mm3 10/13/19 23:40 Myelocytes # 0.0 K/mm3 10/13/19 23:40 Promyelocytes # 0.0 K/mm3 10/13/19 23:40 Blast Cells # 0.0 K/mm3 10/13/19 23:40 WBC Morphology Not Reportable 10/13/19 23:40 Hypersegmented Neuts Not Reportable 10/13/19 23:40 Hyposegmented Neuts Not Reportable 10/13/19 23:40 Hypogranular Neuts Not Reportable 10/13/19 23:40 Smudge Cells Not Reportable 10/13/19 23:40 Toxic Granulation Not Reportable 10/13/19 23:40 Toxic Vacuolation Not Reportable 10/13/19 23:40 Dohle Bodies Not Reportable 10/13/19 23:40 Pelger-Huet Anomaly Not Reportable 10/13/19 23:40 Sami Rods Not Reportable 10/13/19 23:40 Platelet Estimate Consistent w auto 10/13/19 23:40 Clumped Platelets Not Reportable 10/13/19 23:40 Plt Clumps, EDTA Not Reportable 10/13/19 23:40 Large Platelets Not Reportable 10/13/19 23:40 Giant Platelets Not Reportable 10/13/19 23:40 Platelet Satelliting Not Reportable 10/13/19 23:40 Plt Morphology Comment Not Reportable 10/13/19 23:40 RBC Morphology Not Reportable 10/13/19 23:40 Dimorphic RBCs Not Reportable 10/13/19 23:40 Polychromasia Not Reportable 10/13/19 23:40 Hypochromasia Not Reportable 10/13/19 23:40 Poikilocytosis Not Reportable 10/13/19 23:40 Anisocytosis Not Reportable 10/13/19 23:40 Microcytosis Not Reportable 10/13/19 23:40 Macrocytosis Not Reportable 10/13/19 23:40 Spherocytes Not Reportable 10/13/19 23:40 Pappenheimer Bodies Not Reportable 10/13/19 23:40 Sickle Cells Not Reportable 10/13/19 23:40 Target Cells Not Reportable 10/13/19 23:40 Tear Drop Cells Not Reportable 10/13/19 23:40 Ovalocytes Not Reportable 10/13/19 23:40 Helmet Cells Not Reportable 10/13/19 23:40 Amaya-Coolin Bodies Not Reportable 10/13/19 23:40 Gilman Rings Not Reportable 10/13/19 23:40 Aiden Cells Not Reportable 10/13/19 23:40 Bite Cells Not Reportable 10/13/19 23:40 Crenated Cell Not Reportable 10/13/19 23:40 Elliptocytes Rare 10/13/19 23:40 Acanthocytes (Spur) Not Reportable 10/13/19 23:40 Rouleaux Not Reportable 10/13/19 23:40 Hemoglobin C Crystals Not Reportable 10/13/19 23:40 Schistocytes Not Reportable 10/13/19 23:40 Malaria parasites Not Reportable 10/13/19 23:40 Michael Bodies Not Reportable 10/13/19 23:40 Hem Pathologist Commnt No 10/13/19 23:40 Sodium 141 mmol/L (137-145) 10/13/19 23:40 Potassium 4.9 mmol/L (3.6-5.0) 10/13/19 23:40 Chloride 109.3 mmol/L (98-107) H 10/13/19 23:40 Carbon Dioxide 19 mmol/L (22-30) L 10/13/19 23:40 Anion Gap 18 mmol/L 10/13/19 23:40 BUN 39 mg/dL (7-17) H 10/13/19 23:40 Creatinine 2.1 mg/dL (0.7-1.2) H 10/13/19 23:40 Estimated GFR 27 ml/min 10/13/19 23:40 BUN/Creatinine Ratio 19 % 10/13/19 23:40 Glucose 204 mg/dL (65-100) H 10/13/19 23:40 Hemoglobin A1c 6.9 % (4-6) H 10/14/19 05:00 Lactic Acid 1.60 mmol/L (0.7-2.0) 10/14/19 01:38 Calcium 9.5 mg/dL (8.4-10.2) 10/13/19 23:40 Total Bilirubin 0.30 mg/dL (0.1-1.2) 10/13/19 23:40 AST 18 units/L (5-40) 10/13/19 23:40 ALT 28 units/L (7-56) 10/13/19 23:40 Alkaline Phosphatase 112 units/L (35-129) 10/13/19 23:40 Total Protein 7.0 g/dL (6.3-8.2) 10/13/19 23:40 Albumin 4.0 g/dL (3.9-5) 10/13/19 23:40 Albumin/Globulin Ratio 1.3 % 10/13/19 23:40 Amylase 76 units/L (27-131) 10/14/19 05:00 Lipase 31 units/L (13-60) 10/13/19 23:40 Urine Color Yellow (Yellow) 10/14/19 02:19 Urine Turbidity Slightly-cloudy (Clear) 10/14/19 02:19 Urine pH 5.0 (5.0-7.0) 10/14/19 02:19 Ur Specific [place] 1.010 (1.003-1.030) 10/14/19 02:19 Urine Protein 100 mg/dl mg/dL (Negative) 10/14/19 02:19 Urine Glucose (UA) Neg mg/dL (Negative) 10/14/19 02:19 Urine Ketones Neg mg/dL (Negative) 10/14/19 02:19 Urine Blood Mod (Negative) 10/14/19 02:19 Urine Nitrite Neg (Negative) 10/14/19 02:19 Urine Bilirubin Neg (Negative) 10/14/19 02:19 Urine Urobilinogen < 2.0 mg/dL (<2.0) 10/14/19 02:19 Ur Leukocyte Esterase Mod (Negative) 10/14/19 02:19 Urine WBC (Auto) 64.0 /HPF (0.0-6.0) H 10/14/19 02:19 Urine RBC (Auto) 4.0 /HPF (0.0-6.0) 10/14/19 02:19 U Epithel Cells (Auto) 1.0 /HPF (0-13.0) 10/14/19 02:19 Urine Bacteria (Auto) 4+ /HPF (Negative) 10/14/19 02:19 Amorphous Crystals Few 10/14/19 02:19 Urine Mucus Few /HPF 10/14/19 02:19 Assessment and Plan Assessment and plan: pATIENT SEEN AND EXAMINED, D/W PACKER AND CARRY OUT. AGREE WITH PLAN STATED ABOVE
[2019-10-14] MEDS: ONDANSETRON 4 MG/2 ML INJ IV PRN (05:11)
[2019-10-14] MEDS ORDERED: oxyCODONE /ACETAMINOPHEN 5-325MG TAB PO ONE (05:12)
--- NOTE | 2019-10-14 05:20 | Consultation ---
REASON FOR CONSULTATION: Nonspecific abdominal pain. HISTORY OF PRESENT ILLNESS: The patient is an 89-year-old female who presents to the Emergency Room with a 1-day history of periumbilical pain accompanied by nausea and vomiting. PAST MEDICAL HISTORY: Pertinent for hypertension, diabetes, gout. PAST SURGICAL HISTORY: Status post endovascular procedure by Dr. Driver. Also, status post bilateral tubal ligation approximately 60 years ago. ALLERGIES: Allergic to SULFA, which causes her a rash. MEDICATIONS: Include allopurinol, insulin, Lopressor, Lyrica, statin and Norvasc. FAMILY HISTORY: Diabetes. SOCIAL HISTORY: Denies any smoking or drinking. PHYSICAL EXAMINATION: GENERAL: At this time reveals the patient to be awake, alert, cooperative, in no acute distress. VITAL SIGNS: Show her to be afebrile with a temperature of 97.4, blood pressure is 156/70, pulse of 91, respirations of 19. ABDOMEN: Examination of the abdomen reveals to be soft. There is an old midline scar noted just below the umbilicus. The patient states this is from her previous tubal ligation. The abdomen itself was soft. There is a nonspecific tenderness throughout without any rebound or guarding. No specific right upper quadrant tenderness can be elicited. No ventral or incisional hernias can be palpated at this time. Bowel sounds are present. LABORATORY DATA: At present includes a CBC, which shows a white count of 8.8, H and H is 12.3 and 37. Electrolytes showed sodium of 141, potassium is 4.9, chloride is 109, CO2 is 19, BUN is 39, creatinine is 2.1 consistent with borderline renal function. Glucose is 204. Lipase is 31. LFTs are essentially normal including a total bilirubin of 0.3, AST is 18, ALT is 28, alkaline phosphatase is 112. A CT scan of the abdomen has been performed, which shows a diffusely thickened urinary bladder with irregular wall. Gallstones were also noted, but no evidence of any acute cholecystitis. IMPRESSION: 1. At this time is that of an 89-year-old female with known history of diabetes, hypertension, and gout. 2. Nonspecific abdominal pain accompanied by nausea and vomiting. 3. Gallstones without evidence of acute cholecystitis. 4. Thickened urinary bladder, possible cystitis? Urinalysis shows 64 white cells and 4+ bacteria, again consistent with possible pyelonephritis. RECOMMENDATIONS: At this time is to keep the patient n.p.o. We will order a HIDA scan and gallbladder ultrasound in the morning, but patient's symptoms appear to be more urinary in nature. We will follow with you. Thank you very much for consultation. JOB# [id number] KASANDRA/NTS
[2019-10-14] MEDS: INSULIN LISPRO 100 UNIT/ML SUB-Q SCH ×4 (08:15→22:57)
--- NOTE | 2019-10-14 11:07 | Ultrasound Report ---
LIMITED RUQ ABDOMINAL ULTRASOUND INDICATION: gallstones. COMPARISON: No relevant prior imaging study available. FINDINGS: Pancreas: Visualized portions show no significant abnormality. Abdominal Aorta: No significant abnormality. IVC: No significant abnormality. Liver: The liver measures 15.5 cm in length. No significant abnormality. Normal hepatopedal blood fl ow in the main portal vein. Gallbladder: There is a small amount of sludge in the gallbladder. No shadowing stones, abnormal dist ention or wall thickening.. Bile ducts: No significant abnormality. Common bile duct measures 2 mm. Right kidney: The right kidney measures 10.1 cm in length. There is increased right renal echotexture consistent with nonspecific renal parenchymal disease. No focal renal lesion or hydronephrosis.. Free fluid: None. Additional Findings: None. IMPRESSION: Mild degree of sludge in the gallbladder. No evidence for gallstones or acute cholecystitis. Nonspecific renal parenchymal disease.. Signer Name: Jose Garcia Jr, MD Signed: 10/14/2019 11:03 AM Workstation Name: [id number]
--- NOTE | 2019-10-14 13:31 | Progress Note ---
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 ED with complaints of nausea, vomiting, abdominal pain for the past 3 weeks, which has become more persistent over the past day. * CT abd/pelvis w/o IMPRESSION: Abnormally thickened urinary bladder wall which could be secondary to infectious cystitis.Gallstones with nonobstructive nephrolithiasis incidentally noted. * Renal U/S Impression: Mild degree of sludge in GB. No evidence for gallstones or acute cholecystitis, nonspecific renal parenchymal disease UTI -Hx of recurrent UTI -Urine WBC >64 -CT Abdomen pelvis showed Abnormally thickened urinary bladder wall which could be secondary to infectious cystitis. -Urine culture pending -On IV Abx CALLUM/CKD 2, vasomotor nephropathy, poa -Cr on admission 2.1 (04-28-19 Cr was 2.1 also) -treated with IVF -Avoid nephrotoxin agents -Renal dose all meds -Continue to monitor renal function Cholelithiasis -Seen on CT Abdomen Pelvis -Receiving IVF -Continue supportive care Acute Abdominal Pain -c/o n/v, and abdominal pain x3 weeks -Continue Supportive Care -Clear diet -Dr. Benson (General Surgery) consulted IDDM -POC BG monitoring -Scheduled Lantus -SSI coverage prn -Hgb A1c pending HTN -Monitor BP -Resume home antihypertensive meds Hx Gout -Continue Allopurinol HX PVD -continue plavix and statin DVT PPX -on Plavix -on SCD's prolonged inpatient services 31 minutes History Interval history: Patient was seen and examined. Follow-up on current diagnosis of N/V. No overnight events reported to me. Patient denies any chest pain, shortness breath, or severe headaches. Imaging, nursing note, chart, labs and old chart reviewed. Discussed with patient. Daughter Paola Cha at bedside. Hospitalist Physical - Physical exam Narrative exam: Gen: WDWN, chronically disable, NAD, Awake, Alert, Orientated x 3 HEENT: NCAT, EOMI, PERRL, OP Clear Neck: supple, no adenopathy, no thyromegaly, no JVD CVS/Heart: RRR, normal S1S2, pulses present bilaterally Chest/Lungs: CTA B, Symmetrical chest expansion, good air entry bilaterally GI/Abdomen: soft, NTND, good bowel sounds, no guarding or rebound /Bladder: +suprapubic tenderness, no CVA or paraspinal tenderness Extermity/Skin: 2+pitting leg edema, no obvious rash MSK: contracted hands, lROM extremities Neuro: CN 2-12 grossly intact, no new focal deficits Psych: calm - Constitutional Vitals: Temp Pulse Resp BP Pulse Ox 97.7 F 95 H 20 125/68 98 10/14/19 06:56 10/14/19 06:56 10/14/19 06:56 10/14/19 06:56 10/14/19 06:56 Results - Labs CBC & Chem 7: 10/13/19 23:40 10/13/19 23:40 Labs: Laboratory Last Values WBC 8.8 K/mm3 (4.5-11.0) 10/13/19 23:40 RBC 3.77 M/mm3 (3.65-5.03) 10/13/19 23:40 Hgb 12.3 gm/dl (10.1-14.3) 10/13/19 23:40 Hct 37.0 % (30.3-42.9) 10/13/19 23:40 MCV 98 fl (79-97) H 10/13/19 23:40 MCH 33 pg (28-32) H 10/13/19 23:40 MCHC 33 % (30-34) 10/13/19 23:40 RDW 14.8 % (13.2-15.2) 10/13/19 23:40 Plt Count 231 K/mm3 (140-440) 10/13/19 23:40 Add Manual Diff Complete 10/13/19 23:40 Total Counted 100 10/13/19 23:40 Seg Neutrophils % [employer] 10/13/19 23:40 Seg Neuts % (Manual) 91.0 % (40.0-70.0) H 10/13/19 23:40 Band Neutrophils % 1.0 % 10/13/19 23:40 Lymphocytes % (Manual) 6.0 % (13.4-35.0) L 10/13/19 23:40 Reactive Lymphs % (Man) 0 % 10/13/19 23:40 Monocytes % (Manual) 2.0 % (0.0-7.3) 10/13/19 23:40 Eosinophils % (Manual) 0 % (0.0-4.3) 10/13/19 23:40 Basophils % (Manual) 0 % (0.0-1.8) 10/13/19 23:40 Metamyelocytes % 0 % 10/13/19 23:40 Myelocytes % 0 % 10/13/19 23:40 Promyelocytes % 0 % 10/13/19 23:40 Blast Cells % 0 % 10/13/19 23:40 Nucleated RBC % Not Reportable 10/13/19 23:40 Seg Neutrophils # Man 8.0 K/mm3 (1.8-7.7) H 10/13/19 23:40 Band Neutrophils # 0.1 K/mm3 10/13/19 23:40 Lymphocytes # (Manual) 0.5 K/mm3 (1.2-5.4) L 10/13/19 23:40 Abs React Lymphs (Man) 0.0 K/mm3 10/13/19 23:40 Monocytes # (Manual) 0.2 K/mm3 (0.0-0.8) 10/13/19 23:40 Eosinophils # (Manual) 0.0 K/mm3 (0.0-0.4) 10/13/19 23:40 Basophils # (Manual) 0.0 K/mm3 (0.0-0.1) 10/13/19 23:40 Metamyelocytes # 0.0 K/mm3 10/13/19 23:40 Myelocytes # 0.0 K/mm3 10/13/19 23:40 Promyelocytes # 0.0 K/mm3 10/13/19 23:40 Blast Cells # 0.0 K/mm3 10/13/19 23:40 WBC Morphology Not Reportable 10/13/19 23:40 Hypersegmented Neuts Not Reportable 10/13/19 23:40 Hyposegmented Neuts Not Reportable 10/13/19 23:40 Hypogranular Neuts Not Reportable 10/13/19 23:40 Smudge Cells Not Reportable 10/13/19 23:40 Toxic Granulation Not Reportable 10/13/19 23:40 Toxic Vacuolation Not Reportable 10/13/19 23:40 Dohle Bodies Not Reportable 10/13/19 23:40 Pelger-Huet Anomaly Not Reportable 10/13/19 23:40 Sami Rods Not Reportable 10/13/19 23:40 Platelet Estimate Consistent w auto 10/13/19 23:40 Clumped Platelets Not Reportable 10/13/19 23:40 Plt Clumps, EDTA Not Reportable 10/13/19 23:40 Large Platelets Not Reportable 10/13/19 23:40 Giant Platelets Not Reportable 10/13/19 23:40 Platelet Satelliting Not Reportable 10/13/19 23:40 Plt Morphology Comment Not Reportable 10/13/19 23:40 RBC Morphology Not Reportable 10/13/19 23:40 Dimorphic RBCs Not Reportable 10/13/19 23:40 Polychromasia Not Reportable 10/13/19 23:40 Hypochromasia Not Reportable 10/13/19 23:40 Poikilocytosis Not Reportable 10/13/19 23:40 Anisocytosis Not Reportable 10/13/19 23:40 Microcytosis Not Reportable 10/13/19 23:40 Macrocytosis Not Reportable 10/13/19 23:40 Spherocytes Not Reportable 10/13/19 23:40 Pappenheimer Bodies Not Reportable 10/13/19 23:40 Sickle Cells Not Reportable 10/13/19 23:40 Target Cells Not Reportable 10/13/19 23:40 Tear Drop Cells Not Reportable 10/13/19 23:40 Ovalocytes Not Reportable 10/13/19 23:40 Helmet Cells Not Reportable 10/13/19 23:40 [place] Bodies Not Reportable 10/13/19 23:40 [place] Rings Not Reportable 10/13/19 23:40 [place] Cells Not Reportable 10/13/19 23:40 Bite Cells Not Reportable 10/13/19 23:40 Crenated Cell Not Reportable 10/13/19 23:40 Elliptocytes Rare 10/13/19 23:40 Acanthocytes (Spur) Not Reportable 10/13/19 23:40 Rouleaux Not Reportable 10/13/19 23:40 Hemoglobin C Crystals Not Reportable 10/13/19 23:40 Schistocytes Not Reportable 10/13/19 23:40 Malaria parasites Not Reportable 10/13/19 23:40 Michael Bodies Not Reportable 10/13/19 23:40 Hem Pathologist Commnt No 10/13/19 23:40 Sodium 141 mmol/L (137-145) 10/13/19 23:40 Potassium 4.9 mmol/L (3.6-5.0) 10/13/19 23:40 Chloride 109.3 mmol/L (98-107) H 10/13/19 23:40 Carbon Dioxide 19 mmol/L (22-30) L 10/13/19 23:40 Anion Gap 18 mmol/L 10/13/19 23:40 BUN 39 mg/dL (7-17) H 10/13/19 23:40 Creatinine 2.1 mg/dL (0.7-1.2) H 10/13/19 23:40 Estimated GFR 27 ml/min 10/13/19 23:40 BUN/Creatinine Ratio 19 % 10/13/19 23:40 Glucose 204 mg/dL (65-100) H 10/13/19 23:40 POC Glucose 169 (70-105) H 10/14/19 07:09 Hemoglobin A1c 6.9 % (4-6) H 10/14/19 05:00 Lactic Acid 1.60 mmol/L (0.7-2.0) 10/14/19 01:38 Calcium 9.5 mg/dL (8.4-10.2) 10/13/19 23:40 Total Bilirubin 0.30 mg/dL (0.1-1.2) 10/13/19 23:40 AST 18 units/L (5-40) 10/13/19 23:40 ALT 28 units/L (7-56) 10/13/19 23:40 Alkaline Phosphatase 112 units/L (35-129) 10/13/19 23:40 Total Protein 7.0 g/dL (6.3-8.2) 10/13/19 23:40 Albumin 4.0 g/dL (3.9-5) 10/13/19 23:40 Albumin/Globulin Ratio 1.3 % 10/13/19 23:40 Amylase 76 units/L (27-131) 10/14/19 05:00 Lipase 31 units/L (13-60) 10/13/19 23:40 Urine Color Yellow (Yellow) 10/14/19 02:19 Urine Turbidity Slightly-cloudy (Clear) 10/14/19 02:19 Urine pH 5.0 (5.0-7.0) 10/14/19 02:19 Ur Specific [place] 1.010 (1.003-1.030) 10/14/19 02:19 Urine Protein 100 mg/dl mg/dL (Negative) 10/14/19 02:19 Urine Glucose (UA) Neg mg/dL (Negative) 10/14/19 02:19 Urine Ketones Neg mg/dL (Negative) 10/14/19 02:19 Urine Blood Mod (Negative) 10/14/19 02:19 Urine Nitrite Neg (Negative) 10/14/19 02:19 Urine Bilirubin Neg (Negative) 10/14/19 02:19 Urine Urobilinogen < 2.0 mg/dL (<2.0) 10/14/19 02:19 Ur Leukocyte Esterase Mod (Negative) 10/14/19 02:19 Urine WBC (Auto) 64.0 /HPF (0.0-6.0) H 10/14/19 02:19 Urine RBC (Auto) 4.0 /HPF (0.0-6.0) 10/14/19 02:19 U Epithel Cells (Auto) 1.0 /HPF (0-13.0) 10/14/19 02:19 Urine Bacteria (Auto) 4+ /HPF (Negative) 10/14/19 02:19 Amorphous Crystals Few 10/14/19 02:19 Urine Mucus Few /HPF 10/14/19 02:19 Active Medications - Current Medications Current Medications: Generic Name Dose Route Start Last Admin Trade Name Freq PRN Reason Stop Dose Admin Acetaminophen 650 mg 10/14/19 04:34 Tylenol PO Q4H PRN Pain MILD(1-3)/Fever >100.5/COLBY Allopurinol 100 mg 10/14/19 10:00 Zyloprim PO QDAY [facility] Amlodipine Besylate 2.5 mg 10/14/19 10:00 Amlodipine PO DAILY [place] Clopidogrel Bisulfate 75 mg 10/14/19 10:00 Plavix PO QDAY [place] Dextrose 0 ml 10/14/19 04:34 D50w (25gm) Syringe IV Q30MIN PRN Hypoglycemia Protocol Docusate Sodium 100 mg 10/14/19 10:00 Colace PO BID [place] Duloxetine HCl 30 mg 10/14/19 10:00 Cymbalta PO QDAY [place] Sodium Chloride 1,000 mls @ 100 mls/hr 10/14/19 05:00 10/14/19 05:10 Nacl 0.45% 1000 Ml IV 100 mls/hr DIRECT [place] Administration Ceftriaxone Sodium 1 gm in 50 mls @ 100 mls/hr 10/14/19 10:00 Rocephin/Ns 1 Gm/50 Ml IV Q24HR [place] Protocol Insulin Glargine 10 units 10/14/19 22:00 Lantus SUB-Q QHS [place] Insulin Human Lispro 0 unit 10/14/19 07:30 Humalog SUB-Q ACHS [facility] Protocol Losartan Potassium 50 mg 10/14/19 10:00 Cozaar PO QDAY [facility] Metoprolol Tartrate 50 mg 10/14/19 10:00 Metoprolol PO QDAY [facility] Ondansetron HCl 4 mg 10/14/19 04:34 10/14/19 05:11 Zofran IV 4 mg Q8H PRN Administration Nausea And Vomiting Pravastatin Sodium 40 mg 10/14/19 10:00 Pravachol PO QDAY [facility] Sodium Chloride 10 ml 10/14/19 10:00 Sodium Chloride Flush Syringe 10 Ml IV BID [place] Sodium Chloride 10 ml 10/14/19 04:34 Sodium Chloride Flush Syringe 10 Ml IV PRN PRN LINE FLUSH
[2019-10-14] MEDS: amLODIPine 5 MG TAB PO SCH (13:52)
[2019-10-14] MEDS: PRAVASTATIN 40 MG TAB PO SCH (13:53)
[2019-10-14] MEDS: CLOPIDOGREL 75 MG TAB PO SCH (13:53)
[2019-10-14] MEDS: allopurinoL 100 MG TAB PO SCH (13:53)
[2019-10-14] MEDS: DOCUSATE SODIUM 100 MG CAP PO SCH ×2 (13:53→22:54)
[2019-10-14] MEDS: DULoxetine 30 MG CAP PO SCH (13:53)
[2019-10-14] MEDS: LOSARTAN 50 MG TAB PO SCH (13:53)
[2019-10-14] MEDS: cefTRIAXone/NS 1 GM/50 ML 1 GM/50 ML BAG IV SCH (13:54)
[2019-10-14] MEDS: METOPROLOL TARTRATE 50 MG TAB PO SCH (14:07)
--- NOTE | 2019-10-14 15:20 | Nuclear Medicine Report ---
NUCLEAR MEDICINE HEPATOBILIARY SCAN INDICATION: Right-sided abdominal pain. TECHNIQUE: Radiotracer: Tc-99m mebrofenin (by IV): 5 mCi. FINDINGS: Hepatic activity: Normal. Biliary activity: Normal. Common bile duct activity at 5 minutes. Gallbladder activity: Normal at 5 minutes. Small bowel activity: Normal at 10 minutes. There is normal washout of tracer from the liver. IMPRESSION: 1. Normal exam. There is no scintigraphic evidence of cholecystitis. There is normal visualization of the gallbladder.. Signer Name: Dameon Nava MD Signed: 10/14/2019 3:16 PM Workstation Name: [id number]
[2019-10-14] MEDS: INSULIN GLARGINE 100 UNITS/ML SUB-Q SCH (22:56)
[2019-10-15 05:17] LABS: Basophils % (Auto) 0.3 % (0.0-1.8); Eosinophils # (Auto) 0.1 K/mm3 (0.0-0.4); Eosinophils % (Auto) 2.8 % (0.0-4.3); Lymphocytes % (Auto) 22.7 % (13.4-35.0); Mean Corpuscular HGB Conc 34 % (30-34); Mean Corpuscular Volume 97 fl (79-97); Monocytes # (Auto) 0.5 K/mm3 (0.0-0.8); Monocytes % (Auto) 11.2 % (0.0-7.3); Platelet Count 194 K/mm3 (140-440); Red Blood Count 3.39 M/mm3 (3.65-5.03); Red Cell Distribution Width 14.9 % (13.2-15.2)
[2019-10-15 05:32] LABS: Calcium 8.5 mg/dL (8.4-10.2)
[2019-10-15] MEDS: INSULIN LISPRO 100 UNIT/ML SUB-Q SCH ×4 (07:28→22:03)
--- NOTE | 2019-10-15 08:59 | Progress Note ---
Assessment and Plan Pt feeling much better without compl. rama a liq diet. Abd soft, non tender this am. HIDA - GB promptly visualized - normal exam GB U/S - no evidence of acute cholecystitis surgically stable r/o cystitis/pyelo advance diet as rama will follow prn Selected Entries 10/15/19 07:24 Temperature 98.2 F Pulse Rate 82 Respiratory 16 Rate Blood Pressure 151/73 Laboratory Tests 10/15/19 04:43 WBC 4.2 L Hgb 11.0 Hct 33.0 Objective Vital Signs - 12hr 10/15/19 10/15/19 10/15/19 01:45 02:37 07:24 Temperature 98.6 F 98.2 F Pulse Rate 78 82 Respiratory 20 16 Rate Blood Pressure 113/62 151/73 O2 Sat by Pulse 98 98 Oximetry - Labs 10/15/19 04:43 10/15/19 04:43 Diabetes panel 10/15/19 Range/Units 04:43 Sodium 140 (137-145) mmol/L Potassium 4.1 (3.6-5.0) mmol/L Chloride 111.3 H (98-107) mmol/L Carbon Dioxide 19 L (22-30) mmol/L BUN 34 H (7-17) mg/dL Creatinine 1.9 H (0.7-1.2) mg/dL Glucose 67 (65-100) mg/dL Calcium 8.5 (8.4-10.2) mg/dL Calcium panel 10/15/19 Range/Units 04:43 Calcium 8.5 (8.4-10.2) mg/dL Pituitary panel 10/15/19 Range/Units 04:43 Sodium 140 (137-145) mmol/L Potassium 4.1 (3.6-5.0) mmol/L Chloride 111.3 H (98-107) mmol/L Carbon Dioxide 19 L (22-30) mmol/L BUN 34 H (7-17) mg/dL Creatinine 1.9 H (0.7-1.2) mg/dL Glucose 67 (65-100) mg/dL Calcium 8.5 (8.4-10.2) mg/dL Adrenal panel 10/15/19 Range/Units 04:43 Sodium 140 (137-145) mmol/L Potassium 4.1 (3.6-5.0) mmol/L Chloride 111.3 H (98-107) mmol/L Carbon Dioxide 19 L (22-30) mmol/L BUN 34 H (7-17) mg/dL Creatinine 1.9 H (0.7-1.2) mg/dL Glucose 67 (65-100) mg/dL Calcium 8.5 (8.4-10.2) mg/dL
[2019-10-15] MEDS: CLOPIDOGREL 75 MG TAB PO SCH (09:38)
[2019-10-15] MEDS: PRAVASTATIN 40 MG TAB PO SCH (09:38)
[2019-10-15] MEDS: DULoxetine 30 MG CAP PO SCH (09:38)
[2019-10-15] MEDS: LOSARTAN 50 MG TAB PO SCH (09:38)
[2019-10-15] MEDS: METOPROLOL TARTRATE 50 MG TAB PO SCH (09:39)
[2019-10-15] MEDS: DOCUSATE SODIUM 100 MG CAP PO SCH ×2 (09:39→22:03)
[2019-10-15] MEDS: allopurinoL 100 MG TAB PO SCH (09:39)
[2019-10-15] MEDS: amLODIPine 5 MG TAB PO SCH (09:40)
[2019-10-15] MEDS: cefTRIAXone/NS 1 GM/50 ML 1 GM/50 ML BAG IV SCH (09:43)
--- NOTE | 2019-10-15 16:26 | Progress Note ---
Assessment and Plan Assessment and plan: Patient is a 89-year-old -[place] female with history of recurrent urinary tract infections due to functional quadriplegia/bedbound state x 1 year, IDDM, hypertension, gout and PVD who presents to [facility] ED with complaints of nausea, vomiting, abdominal pain for the past 3 weeks, which has become more persistent over the past day. * CT abd/pelvis w/o IMPRESSION: Abnormally thickened urinary bladder wall which could be secondary to infectious cystitis.Gallstones with nonobstructive nephrolithiasis incidentally noted. * Renal U/S Impression: Mild degree of sludge in GB. No evidence for gallstones or acute cholecystitis, nonspecific renal parenchymal disease UTI -Hx of recurrent UTI -Urine WBC >64 -CT Abdomen pelvis showed Abnormally thickened urinary bladder wall which could be secondary to infectious cystitis. -Urine culture negative -On IV Abx CALLUM/CKD 2, vasomotor nephropathy, poa -Cr on admission 2.1 (04-28-19 Cr was 2.1 also) -treated with IVF -Avoid nephrotoxin agents -Renal dose all meds -Continue to monitor renal function very dehydrated Cholelithiasis -Seen on CT Abdomen Pelvis -Receiving IVF -Continue supportive care Acute Abdominal Pain -c/o n/v, and abdominal pain x3 weeks -Continue Supportive Care -Clear diet -Dr. Benson (General Surgery) consulted IDDM -POC BG monitoring -Scheduled Lantus -SSI coverage prn -Hgb A1c 6.9 HTN -Monitor BP -Resume home antihypertensive meds Hx Gout -Continue Allopurinol HX PVD -continue plavix and statin DVT PPX -on Plavix -on SCD's Disposition: continue inpatient care, still nauseated, once tolerating improved diet will send to SNF d/w mayito Cha History Interval history: Patient was seen and examined. Follow-up on current diagnosis of N/V. No overnight events reported to me. Patient denies any chest pain, shortness breath, or severe headaches. Imaging, nursing note, chart, labs and old chart reviewed. Discussed with patient. Mayito Cha at bedside. Hospitalist Physical - Physical exam Narrative exam: Gen: WDWN, chronically disable, NAD, Awake, Alert, Orientated x 3 HEENT: NCAT, EOMI, PERRL, OP Clear Neck: supple, no adenopathy, no thyromegaly, no JVD CVS/Heart: RRR, normal S1S2, pulses present bilaterally Chest/Lungs: CTA B, Symmetrical chest expansion, good air entry bilaterally GI/Abdomen: soft, NTND, good bowel sounds, no guarding or rebound /Bladder: +suprapubic tenderness, no CVA or paraspinal tenderness Extermity/Skin: 2+pitting leg edema, no obvious rash MSK: contracted hands, lROM extremities Neuro: CN 2-12 grossly intact, no new focal deficits Psych: calm - Constitutional Vitals: Temp Pulse Resp BP Pulse Ox 98.8 F 79 20 116/58 94 10/15/19 13:41 10/15/19 13:41 10/15/19 13:41 10/15/19 13:41 10/15/19 13:41 Results - Labs CBC & Chem 7: 10/15/19 04:43 10/15/19 04:43 Labs: Laboratory Last Values WBC 4.2 K/mm3 (4.5-11.0) L 10/15/19 04:43 RBC 3.39 M/mm3 (3.65-5.03) L 10/15/19 04:43 Hgb 11.0 gm/dl (10.1-14.3) 10/15/19 04:43 Hct 33.0 % (30.3-42.9) 10/15/19 04:43 MCV 97 fl (79-97) 10/15/19 04:43 MCH 33 pg (28-32) H 10/15/19 04:43 MCHC 34 % (30-34) 10/15/19 04:43 RDW 14.9 % (13.2-15.2) 10/15/19 04:43 Plt Count 194 K/mm3 (140-440) 10/15/19 04:43 Lymph % (Auto) 22.7 % (13.4-35.0) 10/15/19 04:43 [place] % (Auto) 11.2 % (0.0-7.3) H 10/15/19 04:43 Eos % (Auto) 2.8 % (0.0-4.3) 10/15/19 04:43 Baso % (Auto) 0.3 % (0.0-1.8) 10/15/19 04:43 Lymph # 1.0 K/mm3 (1.2-5.4) L 10/15/19 04:43 [place] # 0.5 K/mm3 (0.0-0.8) 10/15/19 04:43 Eos # 0.1 K/mm3 (0.0-0.4) 10/15/19 04:43 Baso # 0.0 K/mm3 (0.0-0.1) 10/15/19 04:43 Add Manual Diff Complete 10/13/19 23:40 Total Counted 100 10/13/19 23:40 Seg Neutrophils % 63.0 % (40.0-70.0) 10/15/19 04:43 Seg Neuts % (Manual) 91.0 % (40.0-70.0) H 10/13/19 23:40 Band Neutrophils % 1.0 % 10/13/19 23:40 Lymphocytes % (Manual) 6.0 % (13.4-35.0) L 10/13/19 23:40 Reactive Lymphs % (Man) 0 % 10/13/19 23:40 Monocytes % (Manual) 2.0 % (0.0-7.3) 10/13/19 23:40 Eosinophils % (Manual) 0 % (0.0-4.3) 10/13/19 23:40 Basophils % (Manual) 0 % (0.0-1.8) 10/13/19 23:40 Metamyelocytes % 0 % 10/13/19 23:40 Myelocytes % 0 % 10/13/19 23:40 Promyelocytes % 0 % 10/13/19 23:40 Blast Cells % 0 % 10/13/19 23:40 Nucleated RBC % Not Reportable 10/13/19 23:40 Seg Neutrophils # 2.6 K/mm3 (1.8-7.7) 10/15/19 04:43 Seg Neutrophils # Man 8.0 K/mm3 (1.8-7.7) H 10/13/19 23:40 Band Neutrophils # 0.1 K/mm3 10/13/19 23:40 Lymphocytes # (Manual) 0.5 K/mm3 (1.2-5.4) L 10/13/19 23:40 Abs React Lymphs (Man) 0.0 K/mm3 10/13/19 23:40 Monocytes # (Manual) 0.2 K/mm3 (0.0-0.8) 10/13/19 23:40 Eosinophils # (Manual) 0.0 K/mm3 (0.0-0.4) 10/13/19 23:40 Basophils # (Manual) 0.0 K/mm3 (0.0-0.1) 10/13/19 23:40 Metamyelocytes # 0.0 K/mm3 10/13/19 23:40 Myelocytes # 0.0 K/mm3 10/13/19 23:40 Promyelocytes # 0.0 K/mm3 10/13/19 23:40 Blast Cells # 0.0 K/mm3 10/13/19 23:40 WBC Morphology Not Reportable 10/13/19 23:40 Hypersegmented Neuts Not Reportable 10/13/19 23:40 Hyposegmented Neuts Not Reportable 10/13/19 23:40 Hypogranular Neuts Not Reportable 10/13/19 23:40 Smudge Cells Not Reportable 10/13/19 23:40 Toxic Granulation Not Reportable 10/13/19 23:40 Toxic Vacuolation Not Reportable 10/13/19 23:40 Dohle Bodies Not Reportable 10/13/19 23:40 Pelger-[place]uet Anomaly Not Reportable 10/13/19 23:40 Sami Rods Not Reportable 10/13/19 23:40 Platelet Estimate Consistent w auto 10/13/19 23:40 Clumped Platelets Not Reportable 10/13/19 23:40 Plt Clumps, EDTA Not Reportable 10/13/19 23:40 Large Platelets Not Reportable 10/13/19 23:40 Giant Platelets Not Reportable 10/13/19 23:40 Platelet Satelliting Not Reportable 10/13/19 23:40 Plt Morphology Comment Not Reportable 10/13/19 23:40 RBC Morphology Not Reportable 10/13/19 23:40 Dimorphic RBCs Not Reportable 10/13/19 23:40 Polychromasia Not Reportable 10/13/19 23:40 Hypochromasia Not Reportable 10/13/19 23:40 Poikilocytosis Not Reportable 10/13/19 23:40 Anisocytosis Not Reportable 10/13/19 23:40 Microcytosis Not Reportable 10/13/19 23:40 Macrocytosis Not Reportable 10/13/19 23:40 Spherocytes Not Reportable 10/13/19 23:40 Pappenheimer Bodies Not Reportable 10/13/19 23:40 Sickle Cells Not Reportable 10/13/19 23:40 Target Cells Not Reportable 10/13/19 23:40 Tear Drop Cells Not Reportable 10/13/19 23:40 Ovalocytes Not Reportable 10/13/19 23:40 Helmet Cells Not Reportable 10/13/19 23:40 [place] Bodies Not Reportable 10/13/19 23:40 [place] Rings Not Reportable 10/13/19 23:40 [place] Cells Not Reportable 10/13/19 23:40 Bite Cells Not Reportable 10/13/19 23:40 Crenated Cell Not Reportable 10/13/19 23:40 Elliptocytes Rare 10/13/19 23:40 Acanthocytes (Spur) Not Reportable 10/13/19 23:40 Rouleaux Not Reportable 10/13/19 23:40 Hemoglobin C Crystals Not Reportable 10/13/19 23:40 Schistocytes Not Reportable 10/13/19 23:40 Malaria parasites Not Reportable 10/13/19 23:40 Michael Bodies Not Reportable 10/13/19 23:40 Hem Pathologist Commnt No 10/13/19 23:40 Sodium 140 mmol/L (137-145) 10/15/19 04:43 Potassium 4.1 mmol/L (3.6-5.0) 10/15/19 04:43 Chloride 111.3 mmol/L (98-107) H 10/15/19 04:43 Carbon Dioxide 19 mmol/L (22-30) L 10/15/19 04:43 Anion Gap 14 mmol/L 10/15/19 04:43 BUN 34 mg/dL (7-17) H 10/15/19 04:43 Creatinine 1.9 mg/dL (0.7-1.2) H 10/15/19 04:43 Estimated GFR 30 ml/min 10/15/19 04:43 BUN/Creatinine Ratio 18 % 10/15/19 04:43 Glucose 67 mg/dL (65-100) 10/15/19 04:43 POC Glucose 162 (70-105) H 10/15/19 16:19 Hemoglobin A1c 6.9 % (4-6) H 10/14/19 05:00 Lactic Acid 1.60 mmol/L (0.7-2.0) 10/14/19 01:38 Calcium 8.5 mg/dL (8.4-10.2) 10/15/19 04:43 Total Bilirubin 0.30 mg/dL (0.1-1.2) 10/13/19 23:40 AST 18 units/L (5-40) 10/13/19 23:40 ALT 28 units/L (7-56) 10/13/19 23:40 Alkaline Phosphatase 112 units/L (35-129) 10/13/19 23:40 Total Protein 7.0 g/dL (6.3-8.2) 10/13/19 23:40 Albumin 4.0 g/dL (3.9-5) 10/13/19 23:40 Albumin/Globulin Ratio 1.3 % 10/13/19 23:40 Amylase 76 units/L (27-131) 10/14/19 05:00 Lipase 31 units/L (13-60) 10/13/19 23:40 Urine Color Yellow (Yellow) 10/14/19 02:19 Urine Turbidity Slightly-cloudy (Clear) 10/14/19 02:19 Urine pH 5.0 (5.0-7.0) 10/14/19 02:19 Ur Specific [place] 1.010 (1.003-1.030) 10/14/19 02:19 Urine Protein 100 mg/dl mg/dL (Negative) 10/14/19 02:19 Urine Glucose (UA) Neg mg/dL (Negative) 10/14/19 02:19 Urine Ketones Neg mg/dL (Negative) 10/14/19 02:19 Urine Blood Mod (Negative) 10/14/19 02:19 Urine Nitrite Neg (Negative) 10/14/19 02:19 Urine Bilirubin Neg (Negative) 10/14/19 02:19 Urine Urobilinogen < 2.0 mg/dL (<2.0) 10/14/19 02:19 Ur Leukocyte Esterase Mod (Negative) 10/14/19 02:19 Urine WBC (Auto) 64.0 /HPF (0.0-6.0) H 10/14/19 02:19 Urine RBC (Auto) 4.0 /HPF (0.0-6.0) 10/14/19 02:19 U Epithel Cells (Auto) 1.0 /HPF (0-13.0) 10/14/19 02:19 Urine Bacteria (Auto) 4+ /HPF (Negative) 10/14/19 02:19 Amorphous Crystals Few 12 02:19 Urine Mucus Few /HPF 10/14/19 02:19 Active Medications - Current Medications Current Medications: Generic Name Dose Route Start Last Admin Trade Name Freq PRN Reason Stop Dose Admin Acetaminophen 650 mg 10/14/19 04:34 Tylenol PO Q4H PRN Pain MILD(1-3)/Fever >100.5/COLBY Allopurinol 100 mg 10/14/19 10:00 10/15/19 09:39 Zyloprim PO 100 mg QDAY [place] Administration Amlodipine Besylate 2.5 mg 10/14/19 10:00 10/15/19 09:40 Amlodipine PO 2.5 mg DAILY [place] Administration Clopidogrel Bisulfate 75 mg 10/14/19 10:00 10/15/19 09:38 Plavix PO 75 mg QDAY [place] Administration Dextrose 0 ml 10/14/19 04:34 D50w (25gm) Syringe IV Q30MIN PRN Hypoglycemia Protocol Docusate Sodium 100 mg 10/14/19 10:00 10/15/19 09:39 Colace PO 100 mg BID [place] Administration Duloxetine HCl 30 mg 10/14/19 10:00 10/15/19 09:38 Cymbalta PO 30 mg QDAY [place] Administration Ceftriaxone Sodium 1 gm in 50 mls @ 100 mls/hr 10/14/19 10:00 10/15/19 09:43 Rocephin/Ns 1 Gm/50 Ml IV 100 mls/hr Q24HR [place] Administration Protocol Insulin Glargine 10 units 10/14/19 22:00 10/14/19 22:56 Lantus SUB-Q 10 units QHS [place] Administration Insulin Human Lispro 0 unit 10/14/19 07:30 10/15/19 16:22 Humalog SUB-Q 2 unit ACHS [place] Administration Protocol Losartan Potassium 50 mg 10/14/19 10:00 10/15/19 09:38 Cozaar PO 50 mg QDAY [place] Administration Metoprolol Tartrate 50 mg 10/14/19 10:00 10/15/19 09:39 Metoprolol PO 50 mg QDAY [place] Administration Ondansetron HCl 4 mg 10/14/19 04:34 10/14/19 05:11 Zofran IV 4 mg Q8H PRN Administration Nausea And Vomiting Pravastatin Sodium 40 mg 10/14/19 10:00 10/15/19 09:38 Pravachol PO 40 mg QDAY [place] Administration Sodium Chloride 10 ml 10/14/19 10:00 10/15/19 09:43 Sodium Chloride Flush Syringe 10 Ml IV 10 ml BID [place] Administration Sodium Chloride 10 ml 10/14/19 04:34 Sodium Chloride Flush Syringe 10 Ml IV PRN PRN LINE FLUSH
[2019-10-15] MEDS: ONDANSETRON 4 MG/2 ML INJ IV PRN (18:34)
[2019-10-15] MEDS: INSULIN GLARGINE 100 UNITS/ML SUB-Q SCH (22:07)
[2019-10-16] MEDS: INSULIN LISPRO 100 UNIT/ML SUB-Q SCH ×4 (07:16→22:20)
[2019-10-16] MEDS: DULoxetine 30 MG CAP PO SCH (09:33)
[2019-10-16] MEDS: DOCUSATE SODIUM 100 MG CAP PO SCH ×2 (09:33→22:20)
[2019-10-16] MEDS: PRAVASTATIN 40 MG TAB PO SCH (09:33)
[2019-10-16] MEDS: allopurinoL 100 MG TAB PO SCH (09:33)
[2019-10-16] MEDS: CLOPIDOGREL 75 MG TAB PO SCH (09:33)
[2019-10-16] MEDS: LOSARTAN 50 MG TAB PO SCH (09:34)
[2019-10-16] MEDS: amLODIPine 5 MG TAB PO SCH (09:34)
[2019-10-16] MEDS: METOPROLOL TARTRATE 50 MG TAB PO SCH (09:34)
[2019-10-16] MEDS: cefTRIAXone/NS 1 GM/50 ML 1 GM/50 ML BAG IV SCH (09:35)
--- NOTE | 2019-10-16 12:59 | Gastroenterology Consultation ---
<PATRICIA OG - Last Filed: 10/16/19 15:06> History of Present Illness - Reason for Consult Consult date: 10/16/19 N/V Requesting physician: NILE WALDRON - History of Present Illness Patient is a 89 y/o female with PMH of recurrent UTIs, HTN, DM, gout, CKD and PVD (s/p successful BLE angiography 04/[address] Driver; on plavix) who presented to ED 2 days ago on 10/14/19 with c/o RUQ abdominal pain with associated N/V x 3 weeks. Upon admission, she was found to have an UTI to which she is being treated with antibiotics, along with abd CT showing gallstones to which surgery is following. GI has been consulted for recurrent N/V after failed advancement in night overnight. This afternoon patient was sitting up in bed w/o acute distress. She reports postrandial RUQ discomfort with nausea that has progressed over the past 3 weeks to now vomiting solid food (currently tolerating liquids only). No prior hx of similar symptoms. Denies fever, CP, SOB, signs of bleeding, dysphagia, or LGI symptoms such as diarrhea or constipation. Takes a daily ASA but no hx of PUD or previous EGD. Past History Past Medical History: other (see HPI) Past Surgical History: Other (bilateral lower extremity angiography 04/2019) Social history: lives with family Family history: no significant family history Medications and Allergies Allergies Allergy/AdvReac Type Severity Reaction Status Date / Time Sulfa (Sulfonamide Allergy Swelling Verified 10/17/19 11:29 Antibiotics) Home Medications Medication Instructions Recorded Confirmed Last Taken Type Allopurinol [Zyloprim] 100 mg PO QDAY 04/28/19 10/14/19 04/27/19 History 1 tab Insulin Degludec (Nf) [Tresiba 30 units SUB-Q QDAY 04/28/19 10/14/19 04/27/19 History Flextouch U-100 (Nf)] 30 units Losartan [Cozaar] 50 mg PO QDAY 04/28/19 10/14/19 04/27/19 History 1 tab Metoprolol [Lopressor TAB] 50 mg PO QDAY 04/28/19 10/14/19 04/27/19 History 1 tab Pregabalin [Lyrica] 50 mg PO QDAY 04/28/19 10/14/19 04/27/19 History 1 tab Simvastatin 20 mg PO QDAY 04/28/19 10/14/19 04/27/19 History 1 tab amLODIPine [Norvasc] 2.5 mg PO DAILY 04/28/19 10/14/19 04/27/19 History 1 tab Clopidogrel [Plavix] 75 mg PO QDAY 10/14/19 10/14/19 Unknown History DULoxetine [Cymbalta] 30 mg PO QDAY 10/14/19 10/14/19 Unknown History Esomeprazole Magnesium [NexIUM] 40 mg PO QDAY 10/14/19 10/14/19 Unknown History Ondansetron [Zofran Odt] 4 mg PO Q12HR PRN 10/14/19 10/14/19 Unknown History Active Meds: Active Medications Acetaminophen (Tylenol) 650 mg PO Q4H PRN PRN Reason: Pain MILD(1-3)/Fever >100.5/COLBY Allopurinol (Zyloprim) 100 mg PO QDAY [facility] Last Admin: 10/16/19 09:33 Dose: 100 mg Documented by: Amlodipine Besylate (Amlodipine) 2.5 mg PO DAILY [facility] Last Admin: 10/16/19 09:34 Dose: 2.5 mg Documented by: Clopidogrel Bisulfate (Plavix) 75 mg PO QDAY [facility] Last Admin: 10/16/19 09:33 Dose: 75 mg Documented by: Dextrose (D50w (25gm) Syringe) 0 ml IV Q30MIN PRN; Protocol PRN Reason: Hypoglycemia Docusate Sodium (Colace) 100 mg PO BID [facility] Last Admin: 10/16/19 09:33 Dose: 100 mg Documented by: Duloxetine HCl (Cymbalta) 30 mg PO QDAY [facility] Last Admin: 10/16/19 09:33 Dose: 30 mg Documented by: Ceftriaxone Sodium (Rocephin/Ns 1 Gm/50 Ml) 1 gm in 50 mls @ 100 mls/hr IV Q24HR [facility]; Protocol Last Admin: 10/16/19 09:35 Dose: 100 mls/hr Documented by: Insulin Glargine (Lantus) 10 units SUB-Q QHS [facility] Last Admin: 10/15/19 22:07 Dose: 10 units Documented by: Insulin Human Lispro (Humalog) 0 unit SUB-Q ACHS [facility]; Protocol Last Admin: 10/16/19 11:44 Dose: Not Given Documented by: Losartan Potassium (Cozaar) 50 mg PO QDAY [facility] Last Admin: 10/16/19 09:34 Dose: 50 mg Documented by: Metoprolol Tartrate (Metoprolol) 50 mg PO QDAY [facility] Last Admin: 10/16/19 09:34 Dose: 50 mg Documented by: Ondansetron HCl (Zofran) 4 mg IV Q8H PRN PRN Reason: Nausea And Vomiting Last Admin: 10/15/19 18:34 Dose: 4 mg Documented by: Pravastatin Sodium (Pravachol) 40 mg PO QDAY [facility] Last Admin: 10/16/19 09:33 Dose: 40 mg Documented by: Sodium Chloride (Sodium Chloride Flush Syringe 10 Ml) 10 ml IV BID [facility] Last Admin: 10/16/19 09:36 Dose: 10 ml Documented by: Sodium Chloride (Sodium Chloride Flush Syringe 10 Ml) 10 ml IV PRN PRN PRN Reason: LINE FLUSH medications reviewed/updated as required Review of Systems - Review of Systems All systems: negative Gastrointestinal: abdominal pain (RUQ), nausea, vomiting Exam - Constitutional Vital Signs: Temp Pulse Resp BP Pulse Ox 98.7 F 83 18 147/71 98 10/16/19 07:20 10/16/19 10:00 10/16/19 07:20 10/16/19 07:20 10/16/19 10:00 General appearance: no acute distress - EENT Eyes: PERRL, EOM intact ENT: hearing intact - Respiratory Respiratory effort: normal - Cardiovascular Rhythm: regular - Gastrointestinal General gastrointestinal: Present: soft, tender (slight TTP), non-distended, normal bowel sounds - Integumentary Integumentary: Present: warm, dry - Neurologic Neurological: alert and oriented x3 - Labs CBC & Chem 7: 10/15/19 04:43 10/15/19 04:43 Lab Results: Laboratory Results - last 24 hr 10/15/19 10/15/19 10/16/19 16:19 20:29 07:19 POC Glucose 162 H 183 H 97 10/16/19 11:39 POC Glucose 115 H Assessment and Plan 1.RUQ abd pain 2.N/V -afebrile -WBC, H/H, LFTs, and lipase WNL -abd CT showed abnormal thickened urinary bladder wall, gallstones, and nonobstructive nephrolithiasis -abd U/S showed sludge in gallbladder but no stones or acute cholecystitis -HIDA- normal but w/o CCK and EF unknown -surgery following -patient with postrandial RUQ discomfort and N/V x 3 weeks -etiology unclear-GB disease, PUD, vs other (related to UTI) -will schedule for diagnostic EGD tomorrow for further evaluation to r/o GI pathology (ulcer, GOO, etc.) -NPO after MN -start on PPI -hold am dose of plavix -continue antiemetics and supportive care -will follow <AUNDREA CHRISTOPHER - Last Filed: 10/17/19 12:42> Medications and Allergies Active Meds: Active Medications Acetaminophen (Tylenol) 650 mg PO Q4H PRN PRN Reason: Pain MILD(1-3)/Fever >100.5/COLBY Allopurinol (Zyloprim) 100 mg PO QDAY [facility] Last Admin: 10/16/19 09:33 Dose: 100 mg Documented by: Amlodipine Besylate (Amlodipine) 2.5 mg PO DAILY [facility] Last Admin: 10/16/19 09:34 Dose: 2.5 mg Documented by: Clopidogrel Bisulfate (Plavix) 75 mg PO QDAY [facility] Last Admin: 10/16/19 09:33 Dose: 75 mg Documented by: Dextrose (D50w (25gm) Syringe) 0 ml IV Q30MIN PRN; Protocol PRN Reason: Hypoglycemia Docusate Sodium (Colace) 100 mg PO BID [facility] Last Admin: 10/16/19 22:20 Dose: 100 mg Documented by: Duloxetine HCl (Cymbalta) 30 mg PO QDAY [facility] Last Admin: 10/16/19 09:33 Dose: 30 mg Documented by: Ceftriaxone Sodium (Rocephin/Ns 1 Gm/50 Ml) 1 gm in 50 mls @ 100 mls/hr IV Q24HR [facility]; Protocol Last Admin: 10/17/19 09:22 Dose: 100 mls/hr Documented by: Sodium Chloride (Nacl 0.9% 1000 Ml) 1,000 mls @ 50 mls/hr IV DIRECT [facility] Last Admin: 10/17/19 11:40 Dose: 50 mls/hr Documented by: Insulin Glargine (Lantus) 10 units SUB-Q QHS [facility] Last Admin: 10/16/19 22:20 Dose: 10 units Documented by: Insulin Human Lispro (Humalog) 0 unit SUB-Q ACHS [facility]; Protocol Last Admin: 10/17/19 08:25 Dose: Not Given Documented by: Losartan Potassium (Cozaar) 50 mg PO QDAY [facility] Last Admin: 10/16/19 09:34 Dose: 50 mg Documented by: Metoprolol Tartrate (Metoprolol) 50 mg PO QDAY [facility] Last Admin: 10/16/19 09:34 Dose: 50 mg Documented by: Ondansetron HCl (Zofran) 4 mg IV Q8H PRN PRN Reason: Nausea And Vomiting Last Admin: 10/15/19 18:34 Dose: 4 mg Documented by: Pantoprazole Sodium (Protonix) 40 mg IV QDAY [facility] Last Admin: 10/17/19 09:22 Dose: 40 mg Documented by: Pravastatin Sodium (Pravachol) 40 mg PO QDAY [facility] Last Admin: 10/16/19 09:33 Dose: 40 mg Documented by: Sodium Chloride (Sodium Chloride Flush Syringe 10 Ml) 10 ml IV BID [facility] Last Admin: 10/17/19 09:26 Dose: 10 ml Documented by: Sodium Chloride (Sodium Chloride Flush Syringe 10 Ml) 10 ml IV PRN PRN PRN Reason: LINE FLUSH Exam - Constitutional Vital Signs: Temp Pulse Resp BP Pulse Ox 98.2 F 78 16 91/55 100 10/17/19 12:25 10/17/19 12:40 10/17/19 12:40 10/17/19 12:40 10/17/19 12:40 - Labs CBC & Chem 7: 10/15/19 04:43 10/15/19 04:43 Lab Results: Laboratory Results - last 24 hr 10/16/19 10/16/19 10/17/19 16:43 21:35 08:11 POC Glucose 181 H 172 H 101 Assessment and Plan Pt seen and examined. Symptoms c/w biliary colic, though history difficult to clearly elicit from patient. Gallstones noted on CT. Will do EGD to exclude PUD or other process.
--- NOTE | 2019-10-16 15:24 | Progress Note ---
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 * CT abd/pelvis w/o IMPRESSION: Abnormally thickened urinary bladder wall which could be secondary to infectious cystitis.Gallstones with nonobstructive nephrolithiasis incidentally noted. * Renal U/S Impression: Mild degree of sludge in GB. No evidence for gallstones or acute cholecystitis, nonspecific renal parenchymal disease Intractable N/V -GI to evaluate -treat with anti-emetics UTI -Hx of recurrent UTI -Urine WBC >64 -CT Abdomen pelvis showed Abnormally thickened urinary bladder wall which could be secondary to infectious cystitis. -Urine culture negative -On IV Abx CALLUM/CKD 2, vasomotor nephropathy, poa -Cr on admission 2.1 (04/28/19 Cr was 2.1 also) -treated with IVF -Avoid nephrotoxin agents -Renal dose all meds -Continue to monitor renal function very dehydrated Cholelithiasis -Seen on CT Abdomen Pelvis -Receiving IVF -Continue supportive care Acute Abdominal Pain -c/o n/v, and abdominal pain x3 weeks -Continue Supportive Care -Clear diet -Dr. Benson (General Surgery) consulted IDDM -POC BG monitoring -Scheduled Lantus -SSI coverage prn -Hgb A1c 6.9 HTN -Monitor BP -Resume home antihypertensive meds Hx Gout -Continue Allopurinol HX PVD -continue plavix and statin DVT PPX -on Plavix -on SCD's Disposition: continue inpatient care, still nauseated, once tolerating improved diet will send to SNF, unfortunately patient did not tolerate advancement of diet and started vomiting again, so i consulted GI d/w daughter Paola Cha History Interval history: Patient was seen and examined. Follow-up on current diagnosis of N/V. No overnight events reported to me. Patient denies any chest pain, shortness breath, or severe headaches. Imaging, nursing note, chart, labs and old chart reviewed. Discussed with patient. Daughter Paola Cha at bedside. Hospitalist Physical - Physical exam Narrative exam: Gen: WDWN, chronically disable, NAD, Awake, Alert, Orientated x 3 HEENT: NCAT, EOMI, PERRL, OP Clear Neck: supple, no adenopathy, no thyromegaly, no JVD CVS/Heart: RRR, normal S1S2, pulses present bilaterally Chest/Lungs: CTA B, Symmetrical chest expansion, good air entry bilaterally GI/Abdomen: soft, NTND, good bowel sounds, no guarding or rebound /Bladder: +suprapubic tenderness, no CVA or paraspinal tenderness Extermity/Skin: 2+pitting leg edema, no obvious rash MSK: contracted hands, lROM extremities Neuro: CN 2-12 grossly intact, no new focal deficits Psych: calm - Constitutional Vitals: Temp Pulse Resp BP Pulse Ox 98.7 F 83 18 147/71 98 10/16/19 07:20 10/16/19 10:00 10/16/19 07:20 10/16/19 07:20 10/16/19 10:00 Results - Labs CBC & Chem 7: 10/15/19 04:43 10/15/19 04:43 Labs: Laboratory Last Values WBC 4.2 K/mm3 (4.5-11.0) L 10/15/19 04:43 RBC 3.39 M/mm3 (3.65-5.03) L 10/15/19 04:43 Hgb 11.0 gm/dl (10.1-14.3) 10/15/19 04:43 Hct 33.0 % (30.3-42.9) 10/15/19 04:43 MCV 97 fl (79-97) 10/15/19 04:43 MCH 33 pg (28-32) H 10/15/19 04:43 MCHC 34 % (30-34) 10/15/19 04:43 RDW 14.9 % (13.2-15.2) 10/15/19 04:43 Plt Count 194 K/mm3 (140-440) 10/15/19 04:43 Lymph % (Auto) 22.7 % (13.4-35.0) 10/15/19 04:43 [place] % (Auto) 11.2 % (0.0-7.3) H 10/15/19 04:43 Eos % (Auto) 2.8 % (0.0-4.3) 10/15/19 04:43 Baso % (Auto) 0.3 % (0.0-1.8) 10/15/19 04:43 Lymph # 1.0 K/mm3 (1.2-5.4) L 10/15/19 04:43 [place] # 0.5 K/mm3 (0.0-0.8) 10/15/19 04:43 Eos # 0.1 K/mm3 (0.0-0.4) 10/15/19 04:43 Baso # 0.0 K/mm3 (0.0-0.1) 10/15/19 04:43 Add Manual Diff Complete 10/13/19 23:40 Total Counted 100 10/13/19 23:40 Seg Neutrophils % 63.0 % (40.0-70.0) 10/15/19 04:43 Seg Neuts % (Manual) 91.0 % (40.0-70.0) H 10/13/19 23:40 Band Neutrophils % 1.0 % 10/13/19 23:40 Lymphocytes % (Manual) 6.0 % (13.4-35.0) L 10/13/19 23:40 Reactive Lymphs % (Man) 0 % 10/13/19 23:40 Monocytes % (Manual) 2.0 % (0.0-7.3) 10/13/19 23:40 Eosinophils % (Manual) 0 % (0.0-4.3) 10/13/19 23:40 Basophils % (Manual) 0 % (0.0-1.8) 10/13/19 23:40 Metamyelocytes % 0 % 10/13/19 23:40 Myelocytes % 0 % 10/13/19 23:40 Promyelocytes % 0 % 10/13/19 23:40 Blast Cells % 0 % 10/13/19 23:40 Nucleated RBC % Not Reportable 10/13/19 23:40 Seg Neutrophils # 2.6 K/mm3 (1.8-7.7) 10/15/19 04:43 Seg Neutrophils # Man 8.0 K/mm3 (1.8-7.7) H 10/13/19 23:40 Band Neutrophils # 0.1 K/mm3 10/13/19 23:40 Lymphocytes # (Manual) 0.5 K/mm3 (1.2-5.4) L 10/13/19 23:40 Abs React Lymphs (Man) 0.0 K/mm3 10/13/19 23:40 Monocytes # (Manual) 0.2 K/mm3 (0.0-0.8) 10/13/19 23:40 Eosinophils # (Manual) 0.0 K/mm3 (0.0-0.4) 10/13/19 23:40 Basophils # (Manual) 0.0 K/mm3 (0.0-0.1) 10/13/19 23:40 Metamyelocytes # 0.0 K/mm3 10/13/19 23:40 Myelocytes # 0.0 K/mm3 10/13/19 23:40 Promyelocytes # 0.0 K/mm3 10/13/19 23:40 Blast Cells # 0.0 K/mm3 10/13/19 23:40 WBC Morphology Not Reportable 10/13/19 23:40 Hypersegmented Neuts Not Reportable 10/13/19 23:40 Hyposegmented Neuts Not Reportable 10/13/19 23:40 Hypogranular Neuts Not Reportable 10/13/19 23:40 Smudge Cells Not Reportable 10/13/19 23:40 Toxic Granulation Not Reportable 10/13/19 23:40 Toxic Vacuolation Not Reportable 10/13/19 23:40 Dohle Bodies Not Reportable 10/13/19 23:40 Pelger-Huet Anomaly Not Reportable 10/13/19 23:40 Sami Rods Not Reportable 10/13/19 23:40 Platelet Estimate Consistent w auto 10/13/19 23:40 Clumped Platelets Not Reportable 10/13/19 23:40 Plt Clumps, EDTA Not Reportable 10/13/19 23:40 Large Platelets Not Reportable 10/13/19 23:40 Giant Platelets Not Reportable 10/13/19 23:40 Platelet Satelliting Not Reportable 10/13/19 23:40 Plt Morphology Comment Not Reportable 10/13/19 23:40 RBC Morphology Not Reportable 10/13/19 23:40 Dimorphic RBCs Not Reportable 10/13/19 23:40 Polychromasia Not Reportable 10/13/19 23:40 Hypochromasia Not Reportable 10/13/19 23:40 Poikilocytosis Not Reportable 10/13/19 23:40 Anisocytosis Not Reportable 10/13/19 23:40 Microcytosis Not Reportable 10/13/19 23:40 Macrocytosis Not Reportable 10/13/19 23:40 Spherocytes Not Reportable 10/13/19 23:40 Pappenheimer Bodies Not Reportable 10/13/19 23:40 Sickle Cells Not Reportable 10/13/19 23:40 Target Cells Not Reportable 10/13/19 23:40 Tear Drop Cells Not Reportable 10/13/19 23:40 Ovalocytes Not Reportable 10/13/19 23:40 Helmet Cells Not Reportable 10/13/19 23:40 Amaya-Benjamin Bodies Not Reportable 10/13/19 23:40 Grassflat Rings Not Reportable 10/13/19 23:40 [place] Cells Not Reportable 10/13/19 23:40 Bite Cells Not Reportable 10/13/19 23:40 Crenated Cell Not Reportable 10/13/19 23:40 Elliptocytes Rare 10/13/19 23:40 Acanthocytes (Spur) Not Reportable 10/13/19 23:40 Rouleaux Not Reportable 10/13/19 23:40 Hemoglobin C Crystals Not Reportable 10/13/19 23:40 Schistocytes Not Reportable 10/13/19 23:40 Malaria parasites Not Reportable 10/13/19 23:40 Michael Bodies Not Reportable 10/13/19 23:40 Hem Pathologist Commnt No 10/13/19 23:40 Sodium 140 mmol/L (137-145) 10/15/19 04:43 Potassium 4.1 mmol/L (3.6-5.0) 10/15/19 04:43 Chloride 111.3 mmol/L (98-107) H 10/15/19 04:43 Carbon Dioxide 19 mmol/L (22-30) L 10/15/19 04:43 Anion Gap 14 mmol/L 10/15/19 04:43 BUN 34 mg/dL (7-17) H 10/15/19 04:43 Creatinine 1.9 mg/dL (0.7-1.2) H 10/15/19 04:43 Estimated GFR 30 ml/min 10/15/19 04:43 BUN/Creatinine Ratio 18 % 10/15/19 04:43 Glucose 67 mg/dL (65-100) 10/15/19 04:43 POC Glucose 115 (70-105) H 10/16/19 11:39 Hemoglobin A1c 6.9 % (4-6) H 10/14/19 05:00 Lactic Acid 1.60 mmol/L (0.7-2.0) 10/14/19 01:38 Calcium 8.5 mg/dL (8.4-10.2) 10/15/19 04:43 Total Bilirubin 0.30 mg/dL (0.1-1.2) 10/13/19 23:40 AST 18 units/L (5-40) 10/13/19 23:40 ALT 28 units/L (7-56) 10/13/19 23:40 Alkaline Phosphatase 112 units/L (35-129) 10/13/19 23:40 Total Protein 7.0 g/dL (6.3-8.2) 10/13/19 23:40 Albumin 4.0 g/dL (3.9-5) 10/13/19 23:40 Albumin/Globulin Ratio 1.3 % 10/13/19 23:40 Amylase 76 units/L (27-131) 10/14/19 05:00 Lipase 31 units/L (13-60) 10/13/19 23:40 Urine Color Yellow (Yellow) 10/14/19 02:19 Urine Turbidity Slightly-cloudy (Clear) 10/14/19 02:19 Urine pH 5.0 (5.0-7.0) 10/14/19 02:19 Ur Specific [place] 1.010 (1.003-1.030) 10/14/19 02:19 Urine Protein 100 mg/dl mg/dL (Negative) 10/14/19 02:19 Urine Glucose (UA) Neg mg/dL (Negative) 10/14/19 02:19 Urine Ketones Neg mg/dL (Negative) 10/14/19 02:19 Urine Blood Mod (Negative) 10/14/19 02:19 Urine Nitrite Neg (Negative) 10/14/19 02:19 Urine Bilirubin Neg (Negative) 10/14/19 02:19 Urine Urobilinogen < 2.0 mg/dL (<2.0) 10/14/19 02:19 Ur Leukocyte Esterase Mod (Negative) 10/14/19 02:19 Urine WBC (Auto) 64.0 /HPF (0.0-6.0) H 10/14/19 02:19 Urine RBC (Auto) 4.0 /HPF (0.0-6.0) 10/14/19 02:19 U Epithel Cells (Auto) 1.0 /HPF (0-13.0) 10/14/19 02:19 Urine Bacteria (Auto) 4+ /HPF (Negative) 10/14/19 02:19 Amorphous Crystals Few 10/14/19 02:19 Urine Mucus Few /HPF 10/14/19 02:19 Active Medications - Current Medications Current Medications: Generic Name Dose Route Start Last Admin Trade Name Freq PRN Reason Stop Dose Admin Acetaminophen 650 mg 10/14/19 04:34 Tylenol PO Q4H PRN Pain MILD(1-3)/Fever >100.5/COLBY Allopurinol 100 mg 10/14/19 10:00 10/16/19 09:33 Zyloprim PO 100 mg QDAY [facility] Administration Amlodipine Besylate 2.5 mg 10/14/19 10:00 10/16/19 09:34 Amlodipine PO 2.5 mg DAILY [facility] Administration Clopidogrel Bisulfate 75 mg 10/14/19 10:00 10/16/19 09:33 Plavix PO 75 mg QDAY [facility] Administration Dextrose 0 ml 10/14/19 04:34 D50w (25gm) Syringe IV Q30MIN PRN Hypoglycemia Protocol Docusate Sodium 100 mg 10/14/19 10:00 10/16/19 09:33 Colace PO 100 mg BID [facility] Administration Duloxetine HCl 30 mg 10/14/19 10:00 10/16/19 09:33 Cymbalta PO 30 mg QDAY [facility] Administration Ceftriaxone Sodium 1 gm in 50 mls @ 100 mls/hr 10/14/19 10:00 10/16/19 09:35 Rocephin/Ns 1 Gm/50 Ml IV 100 mls/hr Q24HR [facility] Administration Protocol Insulin Glargine 10 units 10/14/19 22:00 10/15/19 22:07 Lantus SUB-Q 10 units QHS [facility] Administration Insulin Human Lispro 0 unit 10/14/19 07:30 10/16/19 11:44 Humalog SUB-Q Not Given ACHS [facility] Protocol Losartan Potassium 50 mg 10/14/19 10:00 10/16/19 09:34 Cozaar PO 50 mg QDAY [facility] Administration Metoprolol Tartrate 50 mg 10/14/19 10:00 10/16/19 09:34 Metoprolol PO 50 mg QDAY [facility] Administration Ondansetron HCl 4 mg 10/14/19 04:34 10/15/19 18:34 Zofran IV 4 mg Q8H PRN Administration Nausea And Vomiting Pravastatin Sodium 40 mg 10/14/19 10:00 10/16/19 09:33 Pravachol PO 40 mg QDAY [facility] Administration Sodium Chloride 10 ml 10/14/19 10:00 10/16/19 09:36 Sodium Chloride Flush Syringe 10 Ml IV 10 ml BID [facility] Administration Sodium Chloride 10 ml 10/14/19 04:34 Sodium Chloride Flush Syringe 10 Ml IV PRN PRN LINE FLUSH
[2019-10-16] MEDS: PANTOPRAZOLE 40 MG INJ IV SCH (16:49)
[2019-10-16] MEDS: INSULIN GLARGINE 100 UNITS/ML SUB-Q SCH (22:20)
[2019-10-17] MEDS: INSULIN LISPRO 100 UNIT/ML SUB-Q SCH ×4 (08:25→22:33)
[2019-10-17] MEDS: cefTRIAXone/NS 1 GM/50 ML 1 GM/50 ML BAG IV SCH (09:22)
[2019-10-17] MEDS: PANTOPRAZOLE 40 MG INJ IV SCH (09:22)
[2019-10-17] MEDS: CLOPIDOGREL 75 MG TAB PO SCH (10:41)
[2019-10-17] MEDS: DOCUSATE SODIUM 100 MG CAP PO SCH ×2 (10:42→21:31)
[2019-10-17] MEDS: LOSARTAN 50 MG TAB PO SCH (10:42)
[2019-10-17] MEDS: amLODIPine 5 MG TAB PO SCH (10:42)
[2019-10-17] MEDS: DULoxetine 30 MG CAP PO SCH (10:43)
[2019-10-17] MEDS: METOPROLOL TARTRATE 50 MG TAB PO SCH (10:43)
[2019-10-17] MEDS: PRAVASTATIN 40 MG TAB PO SCH (10:43)
[2019-10-17] MEDS: allopurinoL 100 MG TAB PO SCH (10:43)
--- NOTE | 2019-10-17 11:37 | Anesthesia Consultation ---
Anesthesia Consult and Med Hx Date of service: 10/17/19 - Airway Anesthetic Teeth Evaluation: Dentures (upper and lower) ROM Head & Neck: Inadequate (restricted extension) Mental/Hyoid Distance: Adequate Mallampati Class: Class III Intubation Access Assessment: Possibly Difficult - Pulmonary Exam CTA: Yes - Cardiac Exam Cardiac Exam: RRR - Pre-Operative Health Status ASA Pre-Surgery Classification: ASA3 Proposed Anesthetic Plan: MAC - Pulmonary Hx Smoking: No Hx Respiratory Symptoms: No - Cardiovascular System Hx Hypertension: Yes Hx Heart Attack/AMI: No Hx Percutaneous Transluminal Coronary Angioplasty (PTCA): No Hx Cardia Arrhythmia: No Hx Peripheral Vascular Disease: Yes (last dose plavix 10/16/19) - Central Nervous System Hx Neuromuscular Disorder: No (frail; uses wheelchair and walker) CVA: No - Gastrointestinal Hx Gastroesophageal Reflux Disease: No - Endocrine Hx Renal Disease: Yes (CALLUM on CKD) Hx Liver Disease: No Hx Insulin Dependent Diabetes: Yes Hx Thyroid Disease: No - Hematic Hx Anemia: Yes - Other Systems Hx Obesity: Yes - Additional Comments Anesthesia Medical History Comments: No hx anesthetic complications. Last episode emesis 10/15/19. No nasuea today.
--- NOTE | 2019-10-17 11:37 | Anesthesia Day of Surgery ---
Anesthesia Day of Surgery - Day of Surgery Patient Examined: Yes Patient H&P Reviewed: Yes Patient is NPO: Yes
[2019-10-17] MEDS ORDERED: PROPOFOL 200 MG/20 ML VIAL IV ONE (11:39)
[2019-10-17] MEDS: SODIUM CHLORIDE 0.9% 1000 ML 1,000 ML IV SCH (11:40)
--- NOTE | 2019-10-17 12:44 | Post Operative Note ---
Pre-op diagnosis: RUQ pain Post-op diagnosis: other (Normal exam) Findings: 1. Normal EGD Procedure: EGD Anesthesia: MAC Surgeon: AUNDREA CHRISTOPHER Estimated blood loss: none Pathology: none Condition: stable Disposition: floor (Would recommend proceeding with cholecystectomy.)
--- NOTE | 2019-10-17 12:50 | Event Note ---
Date: 10/17/19 See dictated report. Will sign off. Please call as needed.
--- NOTE | 2019-10-17 13:56 | Progress Note ---
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 * CT abd/pelvis w/o IMPRESSION: Abnormally thickened urinary bladder wall which could be secondary to infectious cystitis.Gallstones with nonobstructive nephrolithiasis incidentally noted. * Renal U/S Impression: Mild degree of sludge in GB. No evidence for gallstones or acute cholecystitis, nonspecific renal parenchymal disease Intractable N/V -EGD unremarkable -treat with anti-emetics UTI -Hx of recurrent UTI -Urine WBC >64 -CT Abdomen pelvis showed Abnormally thickened urinary bladder wall which could be secondary to infectious cystitis. -Urine culture negative, -treat with IV Abx CALLUM/CKD 2, vasomotor nephropathy, poa -Cr on admission 2.1 (04/28/19 Cr was 2.1 also) -treated with IVF -Avoid nephrotoxin agents -Renal dose all meds -Continue to monitor renal function, very dehydrated Cholelithiasis -Seen on CT Abdomen Pelvis -Receiving IVF -Continue supportive care Acute Abdominal Pain -c/o n/v, and abdominal pain x3 weeks -Continue Supportive Care -Clear diet -Dr. Benson (General Surgery) consulted IDDM -POC BG monitoring -Scheduled Lantus -SSI coverage prn -Hgb A1c 6.9 HTN -Monitor BP -Resume home antihypertensive meds Hx Gout -Continue Allopurinol HX PVD -continue plavix and statin DVT PPX -on Plavix -on SCD's Disposition: continue inpatient care, still nauseated, once tolerating improved diet will send to SNF, unfortunately patient did not tolerate advancement of diet and started vomiting again, so i consulted GI d/w daughter Paola Cha History Interval history: Patient was seen and examined. Follow-up on current diagnosis of N/V. No overnight events reported to me. Patient denies any chest pain, shortness breath, or severe headaches. Imaging, nursing note, chart, labs and old chart reviewed. Discussed with patient. Daughter Paola Cha at bedside. Hospitalist Physical - Physical exam Narrative exam: Gen: WDWN, chronically disable, NAD, Awake, Alert, Orientated x 3 HEENT: NCAT, EOMI, PERRL, OP Clear Neck: supple, no adenopathy, no thyromegaly, no JVD CVS/Heart: RRR, normal S1S2, pulses present bilaterally Chest/Lungs: CTA B, Symmetrical chest expansion, good air entry bilaterally GI/Abdomen: soft, NTND, good bowel sounds, no guarding or rebound /Bladder: +suprapubic tenderness, no CVA or paraspinal tenderness Extermity/Skin: 2+pitting leg edema, no obvious rash MSK: contracted hands, lROM extremities Neuro: CN 2-12 grossly intact, no new focal deficits Psych: calm - Constitutional Vitals: Temp Pulse Resp BP Pulse Ox 98.2 F 77 16 117/65 100 10/17/19 12:25 10/17/19 12:53 10/17/19 12:53 10/17/19 12:53 10/17/19 12:53 Results - Labs CBC & Chem 7: 10/15/19 04:43 10/15/19 04:43 Labs: Laboratory Last Values WBC 4.2 K/mm3 (4.5-11.0) L 10/15/19 04:43 RBC 3.39 M/mm3 (3.65-5.03) L 10/15/19 04:43 Hgb 11.0 gm/dl (10.1-14.3) 10/15/19 04:43 Hct 33.0 % (30.3-42.9) 10/15/19 04:43 MCV 97 fl (79-97) 10/15/19 04:43 MCH 33 pg (28-32) H 10/15/19 04:43 MCHC 34 % (30-34) 10/15/19 04:43 RDW 14.9 % (13.2-15.2) 10/15/19 04:43 Plt Count 194 K/mm3 (140-440) 10/15/19 04:43 Lymph % (Auto) 22.7 % (13.4-35.0) 10/15/19 04:43 [place] % (Auto) 11.2 % (0.0-7.3) H 10/15/19 04:43 Eos % (Auto) 2.8 % (0.0-4.3) 10/15/19 04:43 Baso % (Auto) 0.3 % (0.0-1.8) 10/15/19 04:43 Lymph # 1.0 K/mm3 (1.2-5.4) L 10/15/19 04:43 [place] # 0.5 K/mm3 (0.0-0.8) 10/15/19 04:43 Eos # 0.1 K/mm3 (0.0-0.4) 10/15/19 04:43 Baso # 0.0 K/mm3 (0.0-0.1) 10/15/19 04:43 Add Manual Diff Complete 10/13/19 23:40 Total Counted 100 10/13/19 23:40 Seg Neutrophils % 63.0 % (40.0-70.0) 10/15/19 04:43 Seg Neuts % (Manual) 91.0 % (40.0-70.0) H 10/13/19 23:40 Band Neutrophils % 1.0 % 10/13/19 23:40 Lymphocytes % (Manual) 6.0 % (13.4-35.0) L 10/13/19 23:40 Reactive Lymphs % (Man) 0 % 10/13/19 23:40 Monocytes % (Manual) 2.0 % (0.0-7.3) 10/13/19 23:40 Eosinophils % (Manual) 0 % (0.0-4.3) 10/13/19 23:40 Basophils % (Manual) 0 % (0.0-1.8) 10/13/19 23:40 Metamyelocytes % 0 % 10/13/19 23:40 Myelocytes % 0 % 10/13/19 23:40 Promyelocytes % 0 % 10/13/19 23:40 Blast Cells % 0 % 10/13/19 23:40 Nucleated RBC % Not Reportable 10/13/19 23:40 Seg Neutrophils # 2.6 K/mm3 (1.8-7.7) 10/15/19 04:43 Seg Neutrophils # Man 8.0 K/mm3 (1.8-7.7) H 10/13/19 23:40 Band Neutrophils # 0.1 K/mm3 10/13/19 23:40 Lymphocytes # (Manual) 0.5 K/mm3 (1.2-5.4) L 10/13/19 23:40 Abs React Lymphs (Man) 0.0 K/mm3 10/13/19 23:40 Monocytes # (Manual) 0.2 K/mm3 (0.0-0.8) 10/13/19 23:40 Eosinophils # (Manual) 0.0 K/mm3 (0.0-0.4) 10/13/19 23:40 Basophils # (Manual) 0.0 K/mm3 (0.0-0.1) 10/13/19 23:40 Metamyelocytes # 0.0 K/mm3 10/13/19 23:40 Myelocytes # 0.0 K/mm3 10/13/19 23:40 Promyelocytes # 0.0 K/mm3 10/13/19 23:40 Blast Cells # 0.0 K/mm3 10/13/19 23:40 WBC Morphology Not Reportable 10/13/19 23:40 Hypersegmented Neuts Not Reportable 10/13/19 23:40 Hyposegmented Neuts Not Reportable 10/13/19 23:40 Hypogranular Neuts Not Reportable 10/13/19 23:40 Smudge Cells Not Reportable 10/13/19 23:40 Toxic Granulation Not Reportable 10/13/19 23:40 Toxic Vacuolation Not Reportable 10/13/19 23:40 Dohle Bodies Not Reportable 10/13/19 23:40 Pelger-Huet Anomaly Not Reportable 10/13/19 23:40 Sami Rods Not Reportable 10/13/19 23:40 Platelet Estimate Consistent w auto 10/13/19 23:40 Clumped Platelets Not Reportable 10/13/19 23:40 Plt Clumps, EDTA Not Reportable 10/13/19 23:40 Large Platelets Not Reportable 10/13/19 23:40 Giant Platelets Not Reportable 10/13/19 23:40 Platelet Satelliting Not Reportable 10/13/19 23:40 Plt Morphology Comment Not Reportable 10/13/19 23:40 RBC Morphology Not Reportable 10/13/19 23:40 Dimorphic RBCs Not Reportable 10/13/19 23:40 Polychromasia Not Reportable 10/13/19 23:40 Hypochromasia Not Reportable 10/13/19 23:40 Poikilocytosis Not Reportable 10/13/19 23:40 Anisocytosis Not Reportable 10/13/19 23:40 Microcytosis Not Reportable 10/13/19 23:40 Macrocytosis Not Reportable 10/13/19 23:40 Spherocytes Not Reportable 10/13/19 23:40 Pappenheimer Bodies Not Reportable 10/13/19 23:40 Sickle Cells Not Reportable 10/13/19 23:40 Target Cells Not Reportable 10/13/19 23:40 Tear Drop Cells Not Reportable 10/13/19 23:40 Ovalocytes Not Reportable 10/13/19 23:40 Helmet Cells Not Reportable 10/13/19 23:40 [place] Bodies Not Reportable 10/13/19 23:40 [place] Rings Not Reportable 10/13/19 23:40 [place] Cells Not Reportable 10/13/19 23:40 Bite Cells Not Reportable 10/13/19 23:40 Crenated Cell Not Reportable 10/13/19 23:40 Elliptocytes Rare 10/13/19 23:40 Acanthocytes (Spur) Not Reportable 10/13/19 23:40 Rouleaux Not Reportable 10/13/19 23:40 Hemoglobin C Crystals Not Reportable 10/13/19 23:40 Schistocytes Not Reportable 10/13/19 23:40 Malaria parasites Not Reportable 10/13/19 23:40 Michael Bodies Not Reportable 10/13/19 23:40 Hem Pathologist Commnt No 10/13/19 23:40 Sodium 140 mmol/L (137-145) 10/15/19 04:43 Potassium 4.1 mmol/L (3.6-5.0) 10/15/19 04:43 Chloride 111.3 mmol/L (98-107) H 10/15/19 04:43 Carbon Dioxide 19 mmol/L (22-30) L 10/15/19 04:43 Anion Gap 14 mmol/L 10/15/19 04:43 BUN 34 mg/dL (7-17) H 10/15/19 04:43 Creatinine 1.9 mg/dL (0.7-1.2) H 10/15/19 04:43 Estimated GFR 30 ml/min 10/15/19 04:43 BUN/Creatinine Ratio 18 % 10/15/19 04:43 Glucose 67 mg/dL (65-100) 10/15/19 04:43 POC Glucose 101 (70-105) 10/17/19 08:11 Hemoglobin A1c 6.9 % (4-6) H 10/14/19 05:00 Lactic Acid 1.60 mmol/L (0.7-2.0) 10/14/19 01:38 Calcium 8.5 mg/dL (8.4-10.2) 10/15/19 04:43 Total Bilirubin 0.30 mg/dL (0.1-1.2) 10/13/19 23:40 AST 18 units/L (5-40) 10/13/19 23:40 ALT 28 units/L (7-56) 10/13/19 23:40 Alkaline Phosphatase 112 units/L (35-129) 10/13/19 23:40 Total Protein 7.0 g/dL (6.3-8.2) 10/13/19 23:40 Albumin 4.0 g/dL (3.9-5) 10/13/19 23:40 Albumin/Globulin Ratio 1.3 % 10/13/19 23:40 Amylase 76 units/L (27-131) 10/14/19 05:00 Lipase 31 units/L (13-60) 10/13/19 23:40 Urine Color Yellow (Yellow) 10/14/19 02:19 Urine Turbidity Slightly-cloudy (Clear) 10/14/19 02:19 Urine pH 5.0 (5.0-7.0) 10/14/19 02:19 Ur Specific [place] 1.010 (1.003-1.030) 10/14/19 02:19 Urine Protein 100 mg/dl mg/dL (Negative) 10/14/19 02:19 Urine Glucose (UA) Neg mg/dL (Negative) 10/14/19 02:19 Urine Ketones Neg mg/dL (Negative) 10/14/19 02:19 Urine Blood Mod (Negative) 10/14/19 02:19 Urine Nitrite Neg (Negative) 10/14/19 02:19 Urine Bilirubin Neg (Negative) 10/14/19 02:19 Urine Urobilinogen < 2.0 mg/dL (<2.0) 10/14/19 02:19 Ur Leukocyte Esterase Mod (Negative) 10/14/19 02:19 Urine WBC (Auto) 64.0 /HPF (0.0-6.0) H 10/14/19 02:19 Urine RBC (Auto) 4.0 /HPF (0.0-6.0) 10/14/19 02:19 U Epithel Cells (Auto) 1.0 /HPF (0-13.0) 10/14/19 02:19 Urine Bacteria (Auto) 4+ /HPF (Negative) 10/14/19 02:19 Amorphous Crystals Few 10/14/19 02:19 Urine Mucus Few /HPF 10/14/19 02:19 Active Medications - Current Medications Current Medications: Generic Name Dose Route Start Last Admin Trade Name Freq PRN Reason Stop Dose Admin Acetaminophen 650 mg 10/14/19 04:34 Tylenol PO Q4H PRN Pain MILD(1-3)/Fever >100.5/COLBY Allopurinol 100 mg 10/14/19 10:00 10/16/19 09:33 Zyloprim PO 100 mg QDAY CAROLINA Administration Amlodipine Besylate 2.5 mg 10/14/19 10:00 10/16/19 09:34 Amlodipine PO 2.5 mg DAILY CAR[place]INA Administration Clopidogrel Bisulfate 75 mg 10/14/19 10:00 10/16/19 09:33 Plavix PO 75 mg QDAY CAROLINA Administration Dextrose 0 ml 10/14/19 04:34 D50w (25gm) Syringe IV Q30MIN PRN Hypoglycemia Protocol Docusate Sodium 100 mg 10/14/19 10:00 10/16/19 22:20 Colace PO 100 mg BID CAROLINA Administration Duloxetine HCl 30 mg 10/14/19 10:00 10/16/19 09:33 Cymbalta PO 30 mg QDAY CAROLINA Administration Ceftriaxone Sodium 1 gm in 50 mls @ 100 mls/hr 10/14/19 10:00 10/17/19 09:22 Rocephin/Ns 1 Gm/50 Ml IV 100 mls/hr Q24HR CAROL[place] Administration Protocol Sodium Chloride 1,000 mls @ 50 mls/hr 10/17/19 11:30 10/17/19 11:40 Nacl 0.9% 1000 Ml IV 50 mls/hr DIRECT CAROLINA Administration Insulin Glargine 10 units 10/14/19 22:00 10/16/19 22:20 Lantus SUB-Q 10 units QHS [place] Administration Insulin Human Lispro 0 unit 10/14/19 07:30 10/17/19 08:25 Humalog SUB-Q Not Given ACHS [facility] Protocol Losartan Potassium 50 mg 10/14/19 10:00 10/16/19 09:34 Cozaar PO 50 mg QDAY [place] Administration Metoprolol Tartrate 50 mg 10/14/19 10:00 10/16/19 09:34 Metoprolol PO 50 mg QDAY [place] Administration Ondansetron HCl 4 mg 10/14/19 04:34 10/15/19 18:34 Zofran IV 4 mg Q8H PRN Administration Nausea And Vomiting Pantoprazole Sodium 40 mg 10/16/19 16:00 10/17/19 09:22 Protonix IV 40 mg QDAY [place] Administration Pravastatin Sodium 40 mg 10/14/19 10:00 10/16/19 09:33 Pravachol PO 40 mg QDAY [place] Administration Sodium Chloride 10 ml 10/14/19 10:00 10/17/19 09:26 Sodium Chloride Flush Syringe 10 Ml IV 10 ml BID [place] Administration Sodium Chloride 10 ml 10/14/19 04:34 Sodium Chloride Flush Syringe 10 Ml IV PRN PRN LINE FLUSH
--- NOTE | 2019-10-17 14:01 | Discharge Summary ---
Providers - Providers Date of Admission: 10/14/19 04:34 Date of discharge: 10/20/19 Attending physician: NILE WALDRON 10/14/19 03:13 Consult to Physician [CONS] Stat Comment: Dr. Lombardo spoke with Dr. 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 * CT abd/pelvis w/o IMPRESSION: Abnormally thickened urinary bladder wall which could be secondary to infectious cystitis.Gallstones with nonobstructive nephrolithiasis incidentally noted. * Renal U/S Impression: Mild degree of sludge in GB. No evidence for gallstones or acute cholecystitis, nonspecific renal parenchymal disease Intractable N/V -EGD unremarkable -treat with anti-emetics -The nausea was resolved by Reglan and tolerated a meal -Gabapentin started for abd wall spasm per GI recommendations. UTI -Hx of recurrent UTI -Urine WBC >64 -CT Abdomen pelvis showed Abnormally thickened urinary bladder wall which could be secondary to infectious cystitis. -Urine culture negative, -treated with IV Abx CALLUM/CKD 2, vasomotor nephropathy, poa -Cr on admission 2.1 (04/28/19 Cr was 2.1 also) -treated with IVF -Avoid nephrotoxin agents -Renal dose all meds -Continue to monitor renal function, very dehydrated Cholelithiasis -Seen on CT Abdomen Pelvis -Receiving IVF -Continue supportive care Acute Abdominal Pain -c/o n/v, and abdominal pain x3 weeks -Continue Supportive Care -Clear diet -Dr. Benson (General Surgery) consulted IDDM -POC BG monitoring -Scheduled Lantus -SSI coverage prn -Hgb A1c 6.9 HTN -Monitor BP -Resume home antihypertensive meds Hx Gout -Continue Allopurinol HX PVD -continue plavix and statin DVT PPX -on Plavix -on SCD's Disposition: continue inpatient care, await SNF placement Disposition: [id number]-03 SNF [facility] Time spent for discharge: 32 mintues Core Measure Documentation - Palliative Care Palliative Care/ Comfort Measures: Not Applicable - Core Measures Any of the following diagnoses?: none - VTE Discharge Requirements Deep Vein Thrombosis/Pulmonary Embolism Present on Admission: No Has pt received <5 days of overlap therapy or INR<2.0: No Anticoagulant overlap therapy prescribed at discharge: No Contraindication No Overlap Therapy order at DC: Not Indicated Exam - Physical Exam Narrative exam: Gen: WDWN, chronically disable, NAD, Awake, Alert, Orientated x 3 HEENT: NCAT, EOMI, PERRL, OP Clear Neck: supple, no adenopathy, no thyromegaly, no JVD CVS/Heart: RRR, normal S1S2, pulses present bilaterally Chest/Lungs: CTA B, Symmetrical chest expansion, good air entry bilaterally GI/Abdomen: soft, NTND, good bowel sounds, no guarding or rebound /Bladder: +suprapubic tenderness, no CVA or paraspinal tenderness Extermity/Skin: 2+pitting leg edema, no obvious rash MSK: contracted hands, lROM extremities Neuro: CN 2-12 grossly intact, no new focal deficits Psych: calm - Constitutional Vitals: Temp Pulse Resp BP Pulse Ox 98.2 F 77 16 117/65 100 10/17/19 12:25 10/17/19 12:53 10/17/19 12:53 10/17/19 12:53 10/17/19 12:53 Plan Activity: no restrictions, other (no strenous activity) Diet: low fat Follow up with: Tonie MINER [Other] - 7 Days AUNDREA CHRISTOPHER MD [Staff Physician] - 7 Days HILDA BENSON MD [Staff Physician] - 7 Days Prescriptions: Metoclopramide [Reglan ORAL LIQ] 10 mg PO TIDAC 5 Days #60 oral.liqd RX: Ondansetron [Zofran ODT TAB] 4 mg PO Q12HR PRN #15 tab PRN Reason: N/V Unrelieved By Reglan
--- NOTE | 2019-10-17 14:31 | Event Note ---
Date: 10/17/19 Spoke with pt and daughter to give them endoscopy results. Daughter states that pt had abd wall spasms on the right, where there was visible "jumping" of the wall. This appears to be more of a neuromuscular process, like a spasm. Discussed with Dr. Soto, and agree with plans for trial of gabapentin. Decided against Librax given age of patient.
--- NOTE | 2019-10-17 14:35 | Operative Report ---
UPPER ENDOSCOPY REPORT PROCEDURE: Upper endoscopy. PREOPERATIVE DIAGNOSIS: Right upper quadrant pain. POSTOPERATIVE DIAGNOSIS: Normal upper endoscopy. SEDATION: MAC by Anesthesia. HISTORY: The patient is an 89-year-old woman, who gives a history of a 3-week course of intermittent right upper quadrant pain with nausea that is worse with p.o. intake. She had a CT showing gallstones and an ultrasound showing sludge in the gallbladder, but there was no evidence of cholecystitis. Upper endoscopy is being done to exclude peptic ulcer disease. DESCRIPTION OF PROCEDURE: Indications, risks, and benefits were explained and consent was obtained. The patient was placed in left lateral decubitus position and sedated. Video upper endoscope was passed through the mouth and oropharynx into the descending duodenum and then gradually withdrawn with close inspection of mucosa. FINDINGS: 1. Normal appearing esophagus with sharp Z-line located at 40 cm. 2. Normal appearing gastric antrum, fundus, body, and cardia. 3. Normal appearing duodenal bulb and duodenum. The patient tolerated the procedure well without immediate complications. IMPRESSION: Normal upper endoscopy with no evidence of source of abdominal pain. RECOMMENDATIONS: 1. Given clinical nature of symptoms, would recommend proceeding with cholecystectomy for symptomatic cholelithiasis. Further testing including repeating HIDA scan with CCK can be considered, but unclear if it will alter therapeutic plan. 2. Ischemia considered as a possible etiology, but symptoms are not completely typical for this, though CT was done without IV contrast. JOB# [id number] HRC/NTS
[2019-10-17] MEDS: GABAPENTIN 100 MG CAP PO SCH ×2 (16:59→21:32)
[2019-10-17] MEDS: METOCLOPRAMIDE 10 MG TAB PO SCH ×2 (17:00→21:32)
--- NOTE | 2019-10-17 21:11 | Post Anesthesia Evaluation ---
- Post Anesthesia Evaluation Patient Participated: Yes Airway Patent: Yes Stable Respiratory Function: Yes Nausea/Vomiting: No Temp > 96.8F: Yes Pain Manageable: Yes Adequeate Hydration: Yes Anesthesia Complications: No Block Receding Appropriately: Not Applicable Patient on Ventilator: No
[2019-10-17] MEDS: INSULIN GLARGINE 100 UNITS/ML SUB-Q SCH (22:33)
[2019-10-18] MEDS: GABAPENTIN 100 MG CAP PO SCH ×3 (06:23→23:01)
[2019-10-18] MEDS: INSULIN LISPRO 100 UNIT/ML SUB-Q SCH ×4 (08:02→23:02)
[2019-10-18] MEDS: METOCLOPRAMIDE 10 MG TAB PO SCH ×4 (08:02→23:01)
[2019-10-18] MEDS: cefTRIAXone/NS 1 GM/50 ML 1 GM/50 ML BAG IV SCH (10:15)
[2019-10-18] MEDS: amLODIPine 5 MG TAB PO SCH (10:15)
[2019-10-18] MEDS: DULoxetine 30 MG CAP PO SCH (10:15)
[2019-10-18] MEDS: CLOPIDOGREL 75 MG TAB PO SCH (10:15)
[2019-10-18] MEDS: DOCUSATE SODIUM 100 MG CAP PO SCH ×2 (10:16→23:01)
[2019-10-18] MEDS: allopurinoL 100 MG TAB PO SCH (10:16)
[2019-10-18] MEDS: METOPROLOL TARTRATE 50 MG TAB PO SCH (10:20)
[2019-10-18] MEDS: PANTOPRAZOLE 40 MG TAB PO SCH (10:20)
[2019-10-18] MEDS: PRAVASTATIN 40 MG TAB PO SCH (10:20)
[2019-10-18] MEDS: LOSARTAN 50 MG TAB PO SCH (10:20)
--- NOTE | 2019-10-18 11:36 | Progress Note ---
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 * CT abd/pelvis w/o IMPRESSION: Abnormally thickened urinary bladder wall which could be secondary to infectious cystitis.Gallstones with nonobstructive nephrolithiasis incidentally noted. * Renal U/S Impression: Mild degree of sludge in GB. No evidence for gallstones or acute cholecystitis, nonspecific renal parenchymal disease Intractable N/V -EGD unremarkable -treat with anti-emetics -The nausea was resolved by Reglan and tolerated a meal -Gabapentin started for abd wall spasm per GI recommendations. UTI -Hx of recurrent UTI -Urine WBC >64 -CT Abdomen pelvis showed Abnormally thickened urinary bladder wall which could be secondary to infectious cystitis. -Urine culture negative, -treat with IV Abx CALLUM/CKD 2, vasomotor nephropathy, poa -Cr on admission 2.1 (04/28/19 Cr was 2.1 also) -treated with IVF -Avoid nephrotoxin agents -Renal dose all meds -Continue to monitor renal function, very dehydrated Cholelithiasis -Seen on CT Abdomen Pelvis -Receiving IVF -Continue supportive care Acute Abdominal Pain -c/o n/v, and abdominal pain x3 weeks -Continue Supportive Care -Clear diet -Dr. Benson (General Surgery) consulted IDDM -POC BG monitoring -Scheduled Lantus -SSI coverage prn -Hgb A1c 6.9 HTN -Monitor BP -Resume home antihypertensive meds Hx Gout -Continue Allopurinol HX PVD -continue plavix and statin DVT PPX -on Plavix -on SCD's Disposition: continue inpatient care, await SNF placement History Interval history: Patient was seen and examined. Follow-up on current diagnosis of N/V. No overnight events reported to me. Patient denies any chest pain, shortness breath, or severe headaches. Imaging, nursing note, chart, labs and old chart reviewed. Discussed with patient. The nausea was resolved by Reglan. Hospitalist Physical - Physical exam Narrative exam: Gen: WDWN, chronically disable, NAD, Awake, Alert, Orientated x 3 HEENT: NCAT, EOMI, PERRL, OP Clear Neck: supple, no adenopathy, no thyromegaly, no JVD CVS/Heart: RRR, normal S1S2, pulses present bilaterally Chest/Lungs: CTA B, Symmetrical chest expansion, good air entry bilaterally GI/Abdomen: soft, NTND, good bowel sounds, no guarding or rebound /Bladder: +suprapubic tenderness, no CVA or paraspinal tenderness Extermity/Skin: 2+pitting leg edema, no obvious rash MSK: contracted hands, lROM extremities Neuro: CN 2-12 grossly intact, no new focal deficits Psych: calm - Constitutional Vitals: Temp Pulse Resp BP Pulse Ox 98.8 F 96 H 18 125/60 98 10/18/19 07:08 10/18/19 10:15 10/18/19 08:20 10/18/19 10:15 10/18/19 08:20 Results - Labs CBC & Chem 7: 10/15/19 04:43 10/15/19 04:43 Labs: Laboratory Last Values WBC 4.2 K/mm3 (4.5-11.0) L 10/15/19 04:43 RBC 3.39 M/mm3 (3.65-5.03) L 10/15/19 04:43 Hgb 11.0 gm/dl (10.1-14.3) 10/15/19 04:43 Hct 33.0 % (30.3-42.9) 10/15/19 04:43 MCV 97 fl (79-97) 10/15/19 04:43 MCH 33 pg (28-32) H 10/15/19 04:43 MCHC 34 % (30-34) 10/15/19 04:43 RDW 14.9 % (13.2-15.2) 10/15/19 04:43 Plt Count 194 K/mm3 (140-440) 10/15/19 04:43 Lymph % (Auto) 22.7 % (13.4-35.0) 10/15/19 04:43 [place] % (Auto) 11.2 % (0.0-7.3) H 10/15/19 04:43 Eos % (Auto) 2.8 % (0.0-4.3) 10/15/19 04:43 Baso % (Auto) 0.3 % (0.0-1.8) 10/15/19 04:43 Lymph # 1.0 K/mm3 (1.2-5.4) L 10/15/19 04:43 [place] # 0.5 K/mm3 (0.0-0.8) 10/15/19 04:43 Eos # 0.1 K/mm3 (0.0-0.4) 10/15/19 04:43 Baso # 0.0 K/mm3 (0.0-0.1) 10/15/19 04:43 Add Manual Diff Complete 10/13/19 23:40 Total Counted 100 10/13/19 23:40 Seg Neutrophils % 63.0 % (40.0-70.0) 10/15/19 04:43 Seg Neuts % (Manual) 91.0 % (40.0-70.0) H 10/13/19 23:40 Band Neutrophils % 1.0 % 10/13/19 23:40 Lymphocytes % (Manual) 6.0 % (13.4-35.0) L 10/13/19 23:40 Reactive Lymphs % (Man) 0 % 10/13/19 23:40 Monocytes % (Manual) 2.0 % (0.0-7.3) 10/13/19 23:40 Eosinophils % (Manual) 0 % (0.0-4.3) 10/13/19 23:40 Basophils % (Manual) 0 % (0.0-1.8) 10/13/19 23:40 Metamyelocytes % 0 % 10/13/19 23:40 Myelocytes % 0 % 10/13/19 23:40 Promyelocytes % 0 % 10/13/19 23:40 Blast Cells % 0 % 10/13/19 23:40 Nucleated RBC % Not Reportable 10/13/19 23:40 Seg Neutrophils # 2.6 K/mm3 (1.8-7.7) 10/15/19 04:43 Seg Neutrophils # Man 8.0 K/mm3 (1.8-7.7) H 10/13/19 23:40 Band Neutrophils # 0.1 K/mm3 10/13/19 23:40 Lymphocytes # (Manual) 0.5 K/mm3 (1.2-5.4) L 10/13/19 23:40 Abs React Lymphs (Man) 0.0 K/mm3 10/13/19 23:40 Monocytes # (Manual) 0.2 K/mm3 (0.0-0.8) 10/13/19 23:40 Eosinophils # (Manual) 0.0 K/mm3 (0.0-0.4) 10/13/19 23:40 Basophils # (Manual) 0.0 K/mm3 (0.0-0.1) 10/13/19 23:40 Metamyelocytes # 0.0 K/mm3 10/13/19 23:40 Myelocytes # 0.0 K/mm3 10/13/19 23:40 Promyelocytes # 0.0 K/mm3 10/13/19 23:40 Blast Cells # 0.0 K/mm3 10/13/19 23:40 WBC Morphology Not Reportable 10/13/19 23:40 Hypersegmented Neuts Not Reportable 10/13/19 23:40 Hyposegmented Neuts Not Reportable 10/13/19 23:40 Hypogranular Neuts Not Reportable 10/13/19 23:40 Smudge Cells Not Reportable 10/13/19 23:40 Toxic Granulation Not Reportable 10/13/19 23:40 Toxic Vacuolation Not Reportable 10/13/19 23:40 Dohle Bodies Not Reportable 10/13/19 23:40 Pelger-Huet Anomaly Not Reportable 10/13/19 23:40 Sami Rods Not Reportable 10/13/19 23:40 Platelet Estimate Consistent w auto 10/13/19 23:40 Clumped Platelets Not Reportable 10/13/19 23:40 Plt Clumps, EDTA Not Reportable 10/13/19 23:40 Large Platelets Not Reportable 10/13/19 23:40 Giant Platelets Not Reportable 10/13/19 23:40 Platelet Satelliting Not Reportable 10/13/19 23:40 Plt Morphology Comment Not Reportable 10/13/19 23:40 RBC Morphology Not Reportable 10/13/19 23:40 Dimorphic RBCs Not Reportable 10/13/19 23:40 Polychromasia Not Reportable 10/13/19 23:40 Hypochromasia Not Reportable 10/13/19 23:40 Poikilocytosis Not Reportable 10/13/19 23:40 Anisocytosis Not Reportable 10/13/19 23:40 Microcytosis Not Reportable 10/13/19 23:40 Macrocytosis Not Reportable 10/13/19 23:40 Spherocytes Not Reportable 10/13/19 23:40 Pappenheimer Bodies Not Reportable 10/13/19 23:40 Sickle Cells Not Reportable 10/13/19 23:40 Target Cells Not Reportable 10/13/19 23:40 Tear Drop Cells Not Reportable 10/13/19 23:40 Ovalocytes Not Reportable 10/13/19 23:40 Helmet Cells Not Reportable 10/13/19 23:40 [place] Bodies Not Reportable 10/13/19 23:40 [place] Rings Not Reportable 10/13/19 23:40 [place] Cells Not Reportable 10/13/19 23:40 Bite Cells Not Reportable 10/13/19 23:40 Crenated Cell Not Reportable 10/13/19 23:40 Elliptocytes Rare 10/13/19 23:40 Acanthocytes (Spur) Not Reportable 10/13/19 23:40 Rouleaux Not Reportable 10/13/19 23:40 Hemoglobin C Crystals Not Reportable 10/13/19 23:40 Schistocytes Not Reportable 10/13/19 23:40 Malaria parasites Not Reportable 10/13/19 23:40 Michael Bodies Not Reportable 10/13/19 23:40 Hem Pathologist Commnt No 10/13/19 23:40 Sodium 140 mmol/L (137-145) 10/15/19 04:43 Potassium 4.1 mmol/L (3.6-5.0) 10/15/19 04:43 Chloride 111.3 mmol/L (98-107) H 10/15/19 04:43 Carbon Dioxide 19 mmol/L (22-30) L 10/15/19 04:43 Anion Gap 14 mmol/L 10/15/19 04:43 BUN 34 mg/dL (7-17) H 10/15/19 04:43 Creatinine 1.9 mg/dL (0.7-1.2) H 10/15/19 04:43 Estimated GFR 30 ml/min 10/15/19 04:43 BUN/Creatinine Ratio 18 % 10/15/19 04:43 Glucose 67 mg/dL (65-100) 10/15/19 04:43 POC Glucose 242 (70-105) H 10/18/19 11:35 Hemoglobin A1c 6.9 % (4-6) H 10/14/19 05:00 Lactic Acid 1.60 mmol/L (0.7-2.0) 10/14/19 01:38 Calcium 8.5 mg/dL (8.4-10.2) 10/15/19 04:43 Total Bilirubin 0.30 mg/dL (0.1-1.2) 10/13/19 23:40 AST 18 units/L (5-40) 10/13/19 23:40 ALT 28 units/L (7-56) 10/13/19 23:40 Alkaline Phosphatase 112 units/L (35-129) 10/13/19 23:40 Total Protein 7.0 g/dL (6.3-8.2) 10/13/19 23:40 Albumin 4.0 g/dL (3.9-5) 10/13/19 23:40 Albumin/Globulin Ratio 1.3 % 10/13/19 23:40 Amylase 76 units/L (27-131) 10/14/19 05:00 Lipase 31 units/L (13-60) 10/13/19 23:40 Urine Color Yellow (Yellow) 10/14/19 02:19 Urine Turbidity Slightly-cloudy (Clear) 10/14/19 02:19 Urine pH 5.0 (5.0-7.0) 10/14/19 02:19 Ur Specific [place] 1.010 (1.003-1.030) 10/14/19 02:19 Urine Protein 100 mg/dl mg/dL (Negative) 10/14/19 02:19 Urine Glucose (UA) Neg mg/dL (Negative) 10/14/19 02:19 Urine Ketones Neg mg/dL (Negative) 10/14/19 02:19 Urine Blood Mod (Negative) 10/14/19 02:19 Urine Nitrite Neg (Negative) 10/14/19 02:19 Urine Bilirubin Neg (Negative) 10/14/19 02:19 Urine Urobilinogen < 2.0 mg/dL (<2.0) 10/14/19 02:19 Ur Leukocyte Esterase Mod (Negative) 10/14/19 02:19 Urine WBC (Auto) 64.0 /HPF (0.0-6.0) H 10/14/19 02:19 Urine RBC (Auto) 4.0 /HPF (0.0-6.0) 10/14/19 02:19 U Epithel Cells (Auto) 1.0 /HPF (0-13.0) 10/14/19 02:19 Urine Bacteria (Auto) 4+ /HPF (Negative) 10/14/19 02:19 Amorphous Crystals Few 10/14/19 02:19 Urine Mucus Few /HPF 10/14/19 02:19 Active Medications - Current Medications Current Medications: Generic Name Dose Route Start Last Admin Trade Name Freq PRN Reason Stop Dose Admin Acetaminophen 650 mg 10/14/19 04:34 Tylenol PO Q4H PRN Pain MILD(1-3)/Fever >100.5/COLBY Allopurinol 100 mg 10/14/19 10:00 10/18/19 10:16 Zyloprim PO 100 mg QDAY [place] Administration Amlodipine Besylate 2.5 mg 10/14/19 10:00 10/18/19 10:15 Amlodipine PO 2.5 mg DAILY [place] Administration Clopidogrel Bisulfate 75 mg 10/14/19 10:00 10/18/19 10:15 Plavix PO 75 mg QDAY [place] Administration Dextrose 0 ml 10/14/19 04:34 D50w (25gm) Syringe IV Q30MIN PRN Hypoglycemia Protocol Docusate Sodium 100 mg 10/14/19 10:00 10/18/19 10:16 Colace PO 100 mg BID CAR[place] Administration Duloxetine HCl 30 mg 10/14/19 10:00 10/18/19 10:15 Cymbalta PO 30 mg QDAY [place] Administration Gabapentin 100 mg 10/17/19 15:00 10/18/19 06:23 Gabapentin PO Not Given Q8HR [place] Ceftriaxone Sodium 1 gm in 50 mls @ 100 mls/hr 10/14/19 10:00 10/18/19 10:15 Rocephin/Ns 1 Gm/50 Ml IV 100 mls/hr Q24HR [place] Administration Protocol Sodium Chloride 1,000 mls @ 50 mls/hr 10/17/19 11:30 10/17/19 11:40 Nacl 0.9% 1000 Ml IV 50 mls/hr DIRECT [place] Administration Insulin Glargine 10 units 10/14/19 22:00 10/17/19 22:33 Lantus SUB-Q 10 units QHS [place] Administration Insulin Human Lispro 0 unit 10/14/19 07:30 10/18/19 08:02 Humalog SUB-Q 2 unit ACHS [place] Administration Protocol Losartan Potassium 50 mg 10/14/19 10:00 10/18/19 10:20 Cozaar PO 50 mg QDAY [place] Administration Metoclopramide HCl 10 mg 10/17/19 16:30 10/18/19 08:02 Reglan PO 10 mg ACHS [place] Administration Metoprolol Tartrate 50 mg 10/14/19 10:00 10/18/19 10:20 Metoprolol PO 50 mg QDAY [place] Administration Ondansetron HCl 4 mg 10/14/19 04:34 10/15/19 18:34 Zofran IV 4 mg Q8H PRN Administration Nausea And Vomiting Pantoprazole Sodium 40 mg 10/18/19 10:00 10/18/19 10:20 Protonix PO 40 mg DAILY [place] Administration Pravastatin Sodium 40 mg 10/14/19 10:00 10/18/19 10:20 Pravachol PO 40 mg QDAY [place] Administration Sodium Chloride 10 ml 10/14/19 10:00 10/18/19 10:17 Sodium Chloride Flush Syringe 10 Ml IV 10 ml BID [place] Administration Sodium Chloride 10 ml 10/14/19 04:34 Sodium Chloride Flush Syringe 10 Ml IV PRN PRN LINE FLUSH
[2019-10-18] MEDS: INSULIN GLARGINE 100 UNITS/ML SUB-Q SCH (23:01)
[2019-10-19] MEDS: GABAPENTIN 100 MG CAP PO SCH ×3 (06:06→21:57)
[2019-10-19 06:37] LABS: Hematocrit 33.2 % (30.3-42.9); Hemoglobin 11.2 gm/dl (10.1-14.3); Mean Corpuscular HGB Conc 34 % (30-34); Mean Corpuscular Volume 98 fl (79-97); Platelet Count 222 K/mm3 (140-440); Red Cell Distribution Width 14.6 % (13.2-15.2)
[2019-10-19 06:53] LABS: Calcium 8.7 mg/dL (8.4-10.2)
[2019-10-19] MEDS: INSULIN LISPRO 100 UNIT/ML SUB-Q SCH ×4 (07:59→23:30)
[2019-10-19] MEDS: METOCLOPRAMIDE 10 MG TAB PO SCH ×4 (08:15→21:58)
[2019-10-19] MEDS: DULoxetine 30 MG CAP PO SCH (09:59)
[2019-10-19] MEDS: DOCUSATE SODIUM 100 MG CAP PO SCH ×2 (09:59→21:56)
[2019-10-19] MEDS: CLOPIDOGREL 75 MG TAB PO SCH (09:59)
[2019-10-19] MEDS: LOSARTAN 50 MG TAB PO SCH (09:59)
[2019-10-19] MEDS: METOPROLOL TARTRATE 50 MG TAB PO SCH (10:00)
[2019-10-19] MEDS: amLODIPine 5 MG TAB PO SCH (10:00)
[2019-10-19] MEDS: PRAVASTATIN 40 MG TAB PO SCH (10:00)
[2019-10-19] MEDS: allopurinoL 100 MG TAB PO SCH (10:00)
[2019-10-19] MEDS ORDERED: PANTOPRAZOLE 40 MG TAB PO SCH (10:00)
[2019-10-19] MEDS: PANTOPRAZOLE 40 MG TAB PO SCH (10:00)
[2019-10-19] MEDS: cefTRIAXone/NS 1 GM/50 ML 1 GM/50 ML BAG IV SCH (10:01)
--- NOTE | 2019-10-19 17:11 | Progress Note ---
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 ED with complaints of nausea, vomiting, abdominal pain for the past 3 weeks, which has become more persistent over the past day. * CT abd/pelvis w/o IMPRESSION: Abnormally thickened urinary bladder wall which could be secondary to infectious cystitis.Gallstones with nonobstructive nephrolithiasis incidentally noted. * Renal U/S Impression: Mild degree of sludge in GB. No evidence for gallstones or acute cholecystitis, nonspecific renal parenchymal disease Intractable N/V -EGD unremarkable -treat with anti-emetics -The nausea was resolved by Reglan and tolerated a meal -Gabapentin started for abd wall spasm per GI recommendations. UTI -Hx of recurrent UTI -Urine WBC >64 -CT Abdomen pelvis showed Abnormally thickened urinary bladder wall which could be secondary to infectious cystitis. -Urine culture negative, -treat with IV Abx CALLUM/CKD 2, vasomotor nephropathy, poa -Cr on admission 2.1 (04/28/19 Cr was 2.1 also) -treated with IVF -Avoid nephrotoxin agents -Renal dose all meds -Continue to monitor renal function, very dehydrated Cholelithiasis -Seen on CT Abdomen Pelvis -Receiving IVF -Continue supportive care Acute Abdominal Pain -c/o n/v, and abdominal pain x3 weeks -Continue Supportive Care -Clear diet -Dr. Benson (General Surgery) consulted IDDM -POC BG monitoring -Scheduled Lantus -SSI coverage prn -Hgb A1c 6.9 HTN -Monitor BP -Resume home antihypertensive meds Hx Gout -Continue Allopurinol HX PVD -continue plavix and statin DVT PPX -on Plavix -on SCD's Disposition: continue inpatient care, await SNF placement History Interval history: Patient was seen and examined. Follow-up on current diagnosis of N/V. No overnight events reported to me. Patient denies any chest pain, shortness breath, or severe headaches. Imaging, nursing note, chart, labs and old chart reviewed. Discussed with patient. The nausea was resolved by Reglan. Hospitalist Physical - Physical exam Narrative exam: Gen: WDWN, chronically disable, NAD, Awake, Alert, Orientated x 3 HEENT: NCAT, EOMI, PERRL, OP Clear Neck: supple, no adenopathy, no thyromegaly, no JVD CVS/Heart: RRR, normal S1S2, pulses present bilaterally Chest/Lungs: CTA B, Symmetrical chest expansion, good air entry bilaterally GI/Abdomen: soft, NTND, good bowel sounds, no guarding or rebound /Bladder: +suprapubic tenderness, no CVA or paraspinal tenderness Extermity/Skin: 2+pitting leg edema, no obvious rash MSK: contracted hands, lROM extremities Neuro: CN 2-12 grossly intact, no new focal deficits Psych: calm - Constitutional Vitals: Temp Pulse Resp BP Pulse Ox 97.8 F 75 18 141/63 96 10/19/19 07:17 10/19/19 07:17 10/19/19 10:00 10/19/19 07:17 10/19/19 10:00 Results - Labs CBC & Chem 7: 10/19/19 06:12 10/19/19 06:12 Labs: Laboratory Last Values WBC 7.0 K/mm3 (4.5-11.0) 10/19/19 06:12 RBC 3.40 M/mm3 (3.65-5.03) L 10/19/19 06:12 Hgb 11.2 gm/dl (10.1-14.3) 10/19/19 06:12 Hct 33.2 % (30.3-42.9) 10/19/19 06:12 MCV 98 fl (79-97) H 10/19/19 06:12 MCH 33 pg (28-32) H 10/19/19 06:12 MCHC 34 % (30-34) 10/19/19 06:12 RDW 14.6 % (13.2-15.2) 10/19/19 06:12 Plt Count 222 K/mm3 (140-440) 10/19/19 06:12 Lymph % (Auto) 22.7 % (13.4-35.0) 10/15/19 04:43 [place] % (Auto) 11.2 % (0.0-7.3) H 10/15/19 04:43 Eos % (Auto) 2.8 % (0.0-4.3) 10/15/19 04:43 Baso % (Auto) 0.3 % (0.0-1.8) 10/15/19 04:43 Lymph # 1.0 K/mm3 (1.2-5.4) L 10/15/19 04:43 [place] # 0.5 K/mm3 (0.0-0.8) 10/15/19 04:43 Eos # 0.1 K/mm3 (0.0-0.4) 10/15/19 04:43 Baso # 0.0 K/mm3 (0.0-0.1) 10/15/19 04:43 Add Manual Diff Complete 10/13/19 23:40 Total Counted 100 10/13/19 23:40 Seg Neutrophils % 63.0 % (40.0-70.0) 10/15/19 04:43 Seg Neuts % (Manual) 91.0 % (40.0-70.0) H 10/13/19 23:40 Band Neutrophils % 1.0 % 10/13/19 23:40 Lymphocytes % (Manual) 6.0 % (13.4-35.0) L 10/13/19 23:40 Reactive Lymphs % (Man) 0 % 10/13/19 23:40 Monocytes % (Manual) 2.0 % (0.0-7.3) 10/13/19 23:40 Eosinophils % (Manual) 0 % (0.0-4.3) 10/13/19 23:40 Basophils % (Manual) 0 % (0.0-1.8) 10/13/19 23:40 Metamyelocytes % 0 % 10/13/19 23:40 Myelocytes % 0 % 10/13/19 23:40 Promyelocytes % 0 % 10/13/19 23:40 Blast Cells % 0 % 10/13/19 23:40 Nucleated RBC % Not Reportable 10/13/19 23:40 Seg Neutrophils # 2.6 K/mm3 (1.8-7.7) 10/15/19 04:43 Seg Neutrophils # Man 8.0 K/mm3 (1.8-7.7) H 10/13/19 23:40 Band Neutrophils # 0.1 K/mm3 10/13/19 23:40 Lymphocytes # (Manual) 0.5 K/mm3 (1.2-5.4) L 10/13/19 23:40 Abs React Lymphs (Man) 0.0 K/mm3 10/13/19 23:40 Monocytes # (Manual) 0.2 K/mm3 (0.0-0.8) 10/13/19 23:40 Eosinophils # (Manual) 0.0 K/mm3 (0.0-0.4) 10/13/19 23:40 Basophils # (Manual) 0.0 K/mm3 (0.0-0.1) 10/13/19 23:40 Metamyelocytes # 0.0 K/mm3 10/13/19 23:40 Myelocytes # 0.0 K/mm3 10/13/19 23:40 Promyelocytes # 0.0 K/mm3 10/13/19 23:40 Blast Cells # 0.0 K/mm3 10/13/19 23:40 WBC Morphology Not Reportable 10/13/19 23:40 Hypersegmented Neuts Not Reportable 10/13/19 23:40 Hyposegmented Neuts Not Reportable 10/13/19 23:40 Hypogranular Neuts Not Reportable 10/13/19 23:40 Smudge Cells Not Reportable 10/13/19 23:40 Toxic Granulation Not Reportable 10/13/19 23:40 Toxic Vacuolation Not Reportable 10/13/19 23:40 Dohle Bodies Not Reportable 10/13/19 23:40 Pelger-Huet Anomaly Not Reportable 10/13/19 23:40 Sami Rods Not Reportable 10/13/19 23:40 Platelet Estimate Consistent w auto 10/13/19 23:40 Clumped Platelets Not Reportable 10/13/19 23:40 Plt Clumps, EDTA Not Reportable 10/13/19 23:40 Large Platelets Not Reportable 10/13/19 23:40 Giant Platelets Not Reportable 10/13/19 23:40 Platelet Satelliting Not Reportable 10/13/19 23:40 Plt Morphology Comment Not Reportable 10/13/19 23:40 RBC Morphology Not Reportable 10/13/19 23:40 Dimorphic RBCs Not Reportable 10/13/19 23:40 Polychromasia Not Reportable 10/13/19 23:40 Hypochromasia Not Reportable 10/13/19 23:40 Poikilocytosis Not Reportable 10/13/19 23:40 Anisocytosis Not Reportable 10/13/19 23:40 Microcytosis Not Reportable 10/13/19 23:40 Macrocytosis Not Reportable 10/13/19 23:40 Spherocytes Not Reportable 10/13/19 23:40 Pappenheimer Bodies Not Reportable 10/13/19 23:40 Sickle Cells Not Reportable 10/13/19 23:40 Target Cells Not Reportable 10/13/19 23:40 Tear Drop Cells Not Reportable 10/13/19 23:40 Ovalocytes Not Reportable 10/13/19 23:40 Helmet Cells Not Reportable 10/13/19 23:40 Am[place] Bodies Not Reportable 10/13/19 23:40 [place] Rings Not Reportable 10/13/19 23:40 [place] Cells Not Reportable 10/13/19 23:40 Bite Cells Not Reportable 10/13/19 23:40 Crenated Cell Not Reportable 10/13/19 23:40 Elliptocytes Rare 10/13/19 23:40 Acanthocytes (Spur) Not Reportable 10/13/19 23:40 Rouleaux Not Reportable 10/13/19 23:40 Hemoglobin C Crystals Not Reportable 10/13/19 23:40 Schistocytes Not Reportable 10/13/19 23:40 Malaria parasites Not Reportable 10/13/19 23:40 Michael Bodies Not Reportable 10/13/19 23:40 Hem Pathologist Commnt No 10/13/19 23:40 Sodium 141 mmol/L (137-145) 10/19/19 06:12 Potassium 4.1 mmol/L (3.6-5.0) 10/19/19 06:12 Chloride 112.8 mmol/L (98-107) H 10/19/19 06:12 Carbon Dioxide 18 mmol/L (22-30) L 10/19/19 06:12 Anion Gap 14 mmol/L 10/19/19 06:12 BUN 32 mg/dL (7-17) H 10/19/19 06:12 Creatinine 2.0 mg/dL (0.7-1.2) H 10/19/19 06:12 Estimated GFR 28 ml/min 10/19/19 06:12 BUN/Creatinine Ratio 16 % 10/19/19 06:12 Glucose 104 mg/dL (65-100) H 10/19/19 06:12 POC Glucose 212 (70-105) H 10/19/19 16:43 Hemoglobin A1c 6.9 % (4-6) H 10/14/19 05:00 Lactic Acid 1.60 mmol/L (0.7-2.0) 10/14/19 01:38 Calcium 8.7 mg/dL (8.4-10.2) 10/19/19 06:12 Total Bilirubin 0.30 mg/dL (0.1-1.2) 10/13/19 23:40 AST 18 units/L (5-40) 10/13/19 23:40 ALT 28 units/L (7-56) 10/13/19 23:40 Alkaline Phosphatase 112 units/L (35-129) 10/13/19 23:40 Total Protein 7.0 g/dL (6.3-8.2) 10/13/19 23:40 Albumin 4.0 g/dL (3.9-5) 10/13/19 23:40 Albumin/Globulin Ratio 1.3 % 10/13/19 23:40 Amylase 76 units/L (27-131) 10/14/19 05:00 Lipase 31 units/L (13-60) 10/13/19 23:40 Urine Color Yellow (Yellow) 10/14/19 02:19 Urine Turbidity Slightly-cloudy (Clear) 10/14/19 02:19 Urine pH 5.0 (5.0-7.0) 10/14/19 02:19 Ur Specific [place] 1.010 (1.003-1.030) 10/14/19 02:19 Urine Protein 100 mg/dl mg/dL (Negative) 10/14/19 02:19 Urine Glucose (UA) Neg mg/dL (Negative) 10/14/19 02:19 Urine Ketones Neg mg/dL (Negative) 10/14/19 02:19 Urine Blood Mod (Negative) 10/14/19 02:19 Urine Nitrite Neg (Negative) 10/14/19 02:19 Urine Bilirubin Neg (Negative) 10/14/19 02:19 Urine Urobilinogen < 2.0 mg/dL (<2.0) 10/14/19 02:19 Ur Leukocyte Esterase Mod (Negative) 10/14/19 02:19 Urine WBC (Auto) 64.0 /HPF (0.0-6.0) H 10/14/19 02:19 Urine RBC (Auto) 4.0 /HPF (0.0-6.0) 10/14/19 02:19 U Epithel Cells (Auto) 1.0 /HPF (0-13.0) 10/14/19 02:19 Urine Bacteria (Auto) 4+ /HPF (Negative) 10/14/19 02:19 Amorphous Crystals Few 10/14/19 02:19 Urine Mucus Few /HPF 10/14/19 02:19 Active Medications - Current Medications Current Medications: Generic Name Dose Route Start Last Admin Trade Name Freq PRN Reason Stop Dose Admin Acetaminophen 650 mg 10/14/19 04:34 Tylenol PO Q4H PRN Pain MILD(1-3)/Fever >100.5/COLBY Allopurinol 100 mg 10/14/19 10:00 10/19/19 10:00 Zyloprim PO 100 mg QDAY [place] Administration Amlodipine Besylate 2.5 mg 10/14/19 10:00 10/19/19 10:00 Amlodipine PO 2.5 mg DAILY [place] Administration Bisacodyl 10 mg 10/20/19 10:00 Dulcolax SD 10/20/19 10:01 QDAY ONE Clopidogrel Bisulfate 75 mg 10/14/19 10:00 10/19/19 09:59 Plavix PO 75 mg QDAY [place] Administration Dextrose 0 ml 10/14/19 04:34 D50w (25gm) Syringe IV Q30MIN PRN Hypoglycemia Protocol Docusate Sodium 100 mg 10/14/19 10:00 10/19/19 09:59 Colace PO 100 mg BID [place] Administration Duloxetine HCl 30 mg 10/14/19 10:00 10/19/19 09:59 Cymbalta PO 30 mg QDAY [place] Administration Gabapentin 100 mg 10/17/19 15:00 10/19/19 15:39 Gabapentin PO 100 mg Q8HR [place] Administration Ceftriaxone Sodium 1 gm in 50 mls @ 100 mls/hr 10/14/19 10:00 10/19/19 10:01 Rocephin/Ns 1 Gm/50 Ml IV 100 mls/hr Q24HR [place] Administration Protocol Sodium Chloride 1,000 mls @ 50 mls/hr 10/17/19 11:30 10/17/19 11:40 Nacl 0.9% 1000 Ml IV 50 mls/hr DIRECT [place] Administration Insulin Glargine 10 units 10/14/19 22:00 10/18/19 23:01 Lantus SUB-Q 10 units QHS [place] Administration Insulin Human Lispro 0 unit 10/14/19 07:30 10/19/19 12:20 Humalog SUB-Q 3 unit ACHS [place] Administration Protocol Losartan Potassium 50 mg 10/14/19 10:00 10/19/19 09:59 Cozaar PO 50 mg QDAY [place] Administration Metoclopramide HCl 5 mg 10/19/19 11:30 10/19/19 12:30 Reglan PO 5 mg ACHS [place] Administration Metoprolol Tartrate 50 mg 10/14/19 10:00 10/19/19 10:00 Metoprolol PO 50 mg QDAY [place] Administration Ondansetron HCl 4 mg 10/14/19 04:34 10/15/19 18:34 Zofran IV 4 mg Q8H PRN Administration Nausea And Vomiting Pantoprazole Sodium 40 mg 10/18/19 10:00 10/19/19 10:00 Protonix PO 40 mg DAILY [place] Administration Pravastatin Sodium 40 mg 10/14/19 10:00 10/19/19 10:00 Pravachol PO 40 mg QDAY [place] Administration Sodium Chloride 10 ml 10/14/19 10:00 10/19/19 10:02 Sodium Chloride Flush Syringe 10 Ml IV 10 ml BID [place] Administration Sodium Chloride 10 ml 10/14/19 04:34 Sodium Chloride Flush Syringe 10 Ml IV PRN PRN LINE FLUSH
[2019-10-19] MEDS: INSULIN GLARGINE 100 UNITS/ML SUB-Q SCH (23:30)
[2019-10-20] MEDS: GABAPENTIN 100 MG CAP PO SCH ×2 (06:02→15:00)
[2019-10-20] MEDS: INSULIN LISPRO 100 UNIT/ML SUB-Q SCH ×3 (08:00→17:00)
[2019-10-20] MEDS: METOCLOPRAMIDE 10 MG TAB PO SCH ×3 (08:25→16:27)
[2019-10-20] MEDS: SODIUM CHLORIDE 0.9% 1000 ML 1,000 ML IV SCH (09:12)
[2019-10-20] MEDS: CLOPIDOGREL 75 MG TAB PO SCH (09:19)
[2019-10-20] MEDS: DULoxetine 30 MG CAP PO SCH (09:19)
[2019-10-20] MEDS: allopurinoL 100 MG TAB PO SCH (09:20)
[2019-10-20] MEDS: PANTOPRAZOLE 40 MG TAB PO SCH (09:20)
[2019-10-20] MEDS: PRAVASTATIN 40 MG TAB PO SCH (09:20)
[2019-10-20] MEDS: LOSARTAN 50 MG TAB PO SCH (09:20)
[2019-10-20] MEDS: amLODIPine 5 MG TAB PO SCH (09:20)
[2019-10-20] MEDS: METOPROLOL TARTRATE 50 MG TAB PO SCH (09:21)
[2019-10-20] MEDS: DOCUSATE SODIUM 100 MG CAP PO SCH (09:22)
--- NOTE | 2019-10-20 11:10 | Progress Note ---
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 * CT abd/pelvis w/o IMPRESSION: Abnormally thickened urinary bladder wall which could be secondary to infectious cystitis.Gallstones with nonobstructive nephrolithiasis incidentally noted. * Renal U/S Impression: Mild degree of sludge in GB. No evidence for gallstones or acute cholecystitis, nonspecific renal parenchymal disease Intractable N/V -EGD unremarkable -treat with anti-emetics -The nausea was resolved by Reglan and tolerated a meal -Gabapentin started for abd wall spasm per GI recommendations. UTI -Hx of recurrent UTI -Urine WBC >64 -CT Abdomen pelvis showed Abnormally thickened urinary bladder wall which could be secondary to infectious cystitis. -Urine culture negative, -treat with IV Abx CALLUM/CKD 2, vasomotor nephropathy, poa -Cr on admission 2.1 (04/28/19 Cr was 2.1 also) -treated with IVF -Avoid nephrotoxin agents -Renal dose all meds -Continue to monitor renal function, very dehydrated Cholelithiasis -Seen on CT Abdomen Pelvis -Receiving IVF -Continue supportive care Acute Abdominal Pain -c/o n/v, and abdominal pain x3 weeks -Continue Supportive Care -Clear diet -Dr. Benson (General Surgery) consulted IDDM -POC BG monitoring -Scheduled Lantus -SSI coverage prn -Hgb A1c 6.9 HTN -Monitor BP -Resume home antihypertensive meds Hx Gout -Continue Allopurinol HX PVD -continue plavix and statin DVT PPX -on Plavix -on SCD's Disposition: continue inpatient care, await SNF placement History Interval history: Patient was seen and examined. Follow-up on current diagnosis of N/V. No overnight events reported to me. Patient denies any chest pain, shortness breath, or severe headaches. Imaging, nursing note, chart, labs and old chart reviewed. Discussed with patient. The nausea was resolved by Reglan. Hospitalist Physical - Physical exam Narrative exam: Gen: WDWN, chronically disable, NAD, Awake, Alert, Orientated x 3 HEENT: NCAT, EOMI, PERRL, OP Clear Neck: supple, no adenopathy, no thyromegaly, no JVD CVS/Heart: RRR, normal S1S2, pulses present bilaterally Chest/Lungs: CTA B, Symmetrical chest expansion, good air entry bilaterally GI/Abdomen: soft, NTND, good bowel sounds, no guarding or rebound /Bladder: +suprapubic tenderness, no CVA or paraspinal tenderness Extermity/Skin: 2+pitting leg edema, no obvious rash MSK: contracted hands, lROM extremities Neuro: CN 2-12 grossly intact, no new focal deficits Psych: calm - Constitutional Vitals: Temp Pulse Resp BP Pulse Ox 97.6 F 76 18 131/66 97 10/20/19 07:30 10/20/19 09:21 10/20/19 07:30 10/20/19 09:21 10/20/19 07:30 Results - Labs CBC & Chem 7: 10/19/19 06:12 10/19/19 06:12 Labs: Laboratory Last Values WBC 7.0 K/mm3 (4.5-11.0) 10/19/19 06:12 RBC 3.40 M/mm3 (3.65-5.03) L 10/19/19 06:12 Hgb 11.2 gm/dl (10.1-14.3) 10/19/19 06:12 Hct 33.2 % (30.3-42.9) 10/19/19 06:12 MCV 98 fl (79-97) H 10/19/19 06:12 MCH 33 pg (28-32) H 10/19/19 06:12 MCHC 34 % (30-34) 10/19/19 06:12 RDW 14.6 % (13.2-15.2) 10/19/19 06:12 Plt Count 222 K/mm3 (140-440) 10/19/19 06:12 Lymph % (Auto) 22.7 % (13.4-35.0) 10/15/19 04:43 [place] % (Auto) 11.2 % (0.0-7.3) H 10/15/19 04:43 Eos % (Auto) 2.8 % (0.0-4.3) 10/15/19 04:43 Baso % (Auto) 0.3 % (0.0-1.8) 10/15/19 04:43 Lymph # 1.0 K/mm3 (1.2-5.4) L 10/15/19 04:43 [place] # 0.5 K/mm3 (0.0-0.8) 10/15/19 04:43 Eos # 0.1 K/mm3 (0.0-0.4) 10/15/19 04:43 Baso # 0.0 K/mm3 (0.0-0.1) 10/15/19 04:43 Add Manual Diff Complete 10/13/19 23:40 Total Counted 100 10/13/19 23:40 Seg Neutrophils % 63.0 % (40.0-70.0) 10/15/19 04:43 Seg Neuts % (Manual) 91.0 % (40.0-70.0) H 10/13/19 23:40 Band Neutrophils % 1.0 % 10/13/19 23:40 Lymphocytes % (Manual) 6.0 % (13.4-35.0) L 10/13/19 23:40 Reactive Lymphs % (Man) 0 % 10/13/19 23:40 Monocytes % (Manual) 2.0 % (0.0-7.3) 10/13/19 23:40 Eosinophils % (Manual) 0 % (0.0-4.3) 10/13/19 23:40 Basophils % (Manual) 0 % (0.0-1.8) 10/13/19 23:40 Metamyelocytes % 0 % 10/13/19 23:40 Myelocytes % 0 % 10/13/19 23:40 Promyelocytes % 0 % 10/13/19 23:40 Blast Cells % 0 % 10/13/19 23:40 Nucleated RBC % Not Reportable 10/13/19 23:40 Seg Neutrophils # 2.6 K/mm3 (1.8-7.7) 10/15/19 04:43 Seg Neutrophils # Man 8.0 K/mm3 (1.8-7.7) H 10/13/19 23:40 Band Neutrophils # 0.1 K/mm3 10/13/19 23:40 Lymphocytes # (Manual) 0.5 K/mm3 (1.2-5.4) L 10/13/19 23:40 Abs React Lymphs (Man) 0.0 K/mm3 10/13/19 23:40 Monocytes # (Manual) 0.2 K/mm3 (0.0-0.8) 10/13/19 23:40 Eosinophils # (Manual) 0.0 K/mm3 (0.0-0.4) 10/13/19 23:40 Basophils # (Manual) 0.0 K/mm3 (0.0-0.1) 10/13/19 23:40 Metamyelocytes # 0.0 K/mm3 10/13/19 23:40 Myelocytes # 0.0 K/mm3 10/13/19 23:40 Promyelocytes # 0.0 K/mm3 10/13/19 23:40 Blast Cells # 0.0 K/mm3 10/13/19 23:40 WBC Morphology Not Reportable 10/13/19 23:40 Hypersegmented Neuts Not Reportable 10/13/19 23:40 Hyposegmented Neuts Not Reportable 10/13/19 23:40 Hypogranular Neuts Not Reportable 10/13/19 23:40 Smudge Cells Not Reportable 10/13/19 23:40 Toxic Granulation Not Reportable 10/13/19 23:40 Toxic Vacuolation Not Reportable 10/13/19 23:40 Dohle Bodies Not Reportable 10/13/19 23:40 Pelger-Huet Anomaly Not Reportable 10/13/19 23:40 Sami Rods Not Reportable 10/13/19 23:40 Platelet Estimate Consistent w auto 10/13/19 23:40 Clumped Platelets Not Reportable 10/13/19 23:40 Plt Clumps, EDTA Not Reportable 10/13/19 23:40 Large Platelets Not Reportable 10/13/19 23:40 Giant Platelets Not Reportable 10/13/19 23:40 Platelet Satelliting Not Reportable 10/13/19 23:40 Plt Morphology Comment Not Reportable 10/13/19 23:40 RBC Morphology Not Reportable 10/13/19 23:40 Dimorphic RBCs Not Reportable 10/13/19 23:40 Polychromasia Not Reportable 10/13/19 23:40 Hypochromasia Not Reportable 10/13/19 23:40 Poikilocytosis Not Reportable 10/13/19 23:40 Anisocytosis Not Reportable 10/13/19 23:40 Microcytosis Not Reportable 10/13/19 23:40 Macrocytosis Not Reportable 10/13/19 23:40 Spherocytes Not Reportable 10/13/19 23:40 Pappenheimer Bodies Not Reportable 10/13/19 23:40 Sickle Cells Not Reportable 10/13/19 23:40 Target Cells Not Reportable 10/13/19 23:40 Tear Drop Cells Not Reportable 10/13/19 23:40 Ovalocytes Not Reportable 10/13/19 23:40 Helmet Cells Not Reportable 10/13/19 23:40 Amaya-V[place]uita Bodies Not Reportable 10/13/19 23:40 [place] Rings Not Reportable 10/13/19 23:40 Kinzers Cells Not Reportable 10/13/19 23:40 Bite Cells Not Reportable 10/13/19 23:40 Crenated Cell Not Reportable 10/13/19 23:40 Elliptocytes Rare 10/13/19 23:40 Acanthocytes (Spur) Not Reportable 10/13/19 23:40 Rouleaux Not Reportable 10/13/19 23:40 Hemoglobin C Crystals Not Reportable 10/13/19 23:40 Schistocytes Not Reportable 10/13/19 23:40 Malaria parasites Not Reportable 10/13/19 23:40 Michael Bodies Not Reportable 10/13/19 23:40 Hem Pathologist Commnt No 10/13/19 23:40 Sodium 141 mmol/L (137-145) 10/19/19 06:12 Potassium 4.1 mmol/L (3.6-5.0) 10/19/19 06:12 Chloride 112.8 mmol/L (98-107) H 10/19/19 06:12 Carbon Dioxide 18 mmol/L (22-30) L 10/19/19 06:12 Anion Gap 14 mmol/L 10/19/19 06:12 BUN 32 mg/dL (7-17) H 10/19/19 06:12 Creatinine 2.0 mg/dL (0.7-1.2) H 10/19/19 06:12 Estimated GFR 28 ml/min 10/19/19 06:12 BUN/Creatinine Ratio 16 % 10/19/19 06:12 Glucose 104 mg/dL (65-100) H 10/19/19 06:12 POC Glucose 124 (70-105) H 10/20/19 07:42 Hemoglobin A1c 6.9 % (4-6) H 10/14/19 05:00 Lactic Acid 1.60 mmol/L (0.7-2.0) 10/14/19 01:38 Calcium 8.7 mg/dL (8.4-10.2) 10/19/19 06:12 Total Bilirubin 0.30 mg/dL (0.1-1.2) 10/13/19 23:40 AST 18 units/L (5-40) 10/13/19 23:40 ALT 28 units/L (7-56) 10/13/19 23:40 Alkaline Phosphatase 112 units/L (35-129) 10/13/19 23:40 Total Protein 7.0 g/dL (6.3-8.2) 10/13/19 23:40 Albumin 4.0 g/dL (3.9-5) 10/13/19 23:40 Albumin/Globulin Ratio 1.3 % 10/13/19 23:40 Amylase 76 units/L (27-131) 10/14/19 05:00 Lipase 31 units/L (13-60) 10/13/19 23:40 Urine Color Yellow (Yellow) 10/14/19 02:19 Urine Turbidity Slightly-cloudy (Clear) 10/14/19 02:19 Urine pH 5.0 (5.0-7.0) 10/14/19 02:19 Ur Specific [place] 1.010 (1.003-1.030) 10/14/19 02:19 Urine Protein 100 mg/dl mg/dL (Negative) 10/14/19 02:19 Urine Glucose (UA) Neg mg/dL (Negative) 10/14/19 02:19 Urine Ketones Neg mg/dL (Negative) 10/14/19 02:19 Urine Blood Mod (Negative) 10/14/19 02:19 Urine Nitrite Neg (Negative) 10/14/19 02:19 Urine Bilirubin Neg (Negative) 10/14/19 02:19 Urine Urobilinogen < 2.0 mg/dL (<2.0) 10/14/19 02:19 Ur Leukocyte Esterase Mod (Negative) 10/14/19 02:19 Urine WBC (Auto) 64.0 /HPF (0.0-6.0) H 10/14/19 02:19 Urine RBC (Auto) 4.0 /HPF (0.0-6.0) 10/14/19 02:19 U Epithel Cells (Auto) 1.0 /HPF (0-13.0) 10/14/19 02:19 Urine Bacteria (Auto) 4+ /HPF (Negative) 10/14/19 02:19 Amorphous Crystals Few 10/14/19 02:19 Urine Mucus Few /HPF 10/14/19 02:19 Active Medications - Current Medications Current Medications: Generic Name Dose Route Start Last Admin Trade Name Freq PRN Reason Stop Dose Admin Acetaminophen 650 mg 10/14/19 04:34 Tylenol PO Q4H PRN Pain MILD(1-3)/Fever >100.5/COLBY Allopurinol 100 mg 10/14/19 10:00 10/20/19 09:20 Zyloprim PO 100 mg QDAY [place] Administration Amlodipine Besylate 2.5 mg 10/14/19 10:00 10/20/19 09:20 Amlodipine PO 2.5 mg DAILY [place] Administration Clopidogrel Bisulfate 75 mg 10/14/19 10:00 10/20/19 09:19 Plavix PO 75 mg QDAY [place] Administration Dextrose 0 ml 10/14/19 04:34 D50w (25gm) Syringe IV Q30MIN PRN Hypoglycemia Protocol Docusate Sodium 100 mg 10/14/19 10:00 10/20/19 09:22 Colace PO 100 mg BID CAROLINA Administration Duloxetine HCl 30 mg 10/14/19 10:00 10/20/19 09:19 Cymbalta PO 30 mg QDAY [place] Administration Gabapentin 100 mg 10/17/19 15:00 10/20/19 06:02 Gabapentin PO 100 mg Q8HR [place] Administration Sodium Chloride 1,000 mls @ 50 mls/hr 10/17/19 11:30 10/20/19 09:12 Nacl 0.9% 1000 Ml IV 50 mls/hr DIRECT [place] Administration Insulin Glargine 10 units 10/14/19 22:00 10/19/19 23:30 Lantus SUB-Q 10 units QHS CAR[place] Administration Insulin Human Lispro 0 unit 10/14/19 07:30 10/20/19 08:00 Humalog SUB-Q Not Given ACHS [place] Protocol Losartan Potassium 50 mg 10/14/19 10:00 10/20/19 09:20 Cozaar PO 50 mg QDAY [place] Administration Metoclopramide HCl 5 mg 10/19/19 11:30 10/20/19 08:25 Reglan PO Not Given ACHS [facility] Metoprolol Tartrate 50 mg 10/14/19 10:00 10/20/19 09:21 Metoprolol PO 50 mg QDAY [place] Administration Ondansetron HCl 4 mg 10/14/19 04:34 10/15/19 18:34 Zofran IV 4 mg Q8H PRN Administration Nausea And Vomiting Pantoprazole Sodium 40 mg 10/18/19 10:00 10/20/19 09:20 Protonix PO 40 mg DAILY [place] Administration Pravastatin Sodium 40 mg 10/14/19 10:00 10/20/19 09:20 Pravachol PO 40 mg QDAY [place] Administration Sodium Chloride 10 ml 10/14/19 10:00 10/20/19 09:22 Sodium Chloride Flush Syringe 10 Ml IV 10 ml BID [place] Administration Sodium Chloride 10 ml 10/14/19 04:34 Sodium Chloride Flush Syringe 10 Ml IV PRN PRN LINE FLUSH
[2019-10-20 13:48] VITALS: BP 142/64
== END 2019-10-20 18:50 | DRG 689 ==
LOC: ED 23:11 → 2B-ACE 10-14 04:34
PROVIDERS: ADMIT Internal Medicine; ATTEND Internal Medicine
PROC: 0DJ08ZZ Inspection of Upper Intestinal Tract, Via Natural or Artificial Opening Endoscopic (ICD-10-PCS; principal; 2019-10-17)
DX: N30.00 Acute cystitis without hematuria (principal); N17.0 Acute kidney failure with tubular necrosis; R53.2 Functional quadriplegia; K80.20 Calculus of gallbladder without cholecystitis without obstruction; M10.9 Gout, unspecified; E11.22 Type 2 diabetes mellitus with diabetic chronic kidney disease; I12.9 Hypertensive chronic kidney disease with stage 1 through stage 4 chronic kidney disease, or unspecified chronic kidney disease; N18.2 Chronic kidney disease, stage 2 (mild); E66.9 Obesity, unspecified; Z88.2 Allergy status to sulfonamides; Z79.899 Other long term (current) drug therapy; Z79.4 Long term (current) use of insulin; Z87.440 Personal history of urinary (tract) infections; Z68.32 Body mass index [BMI] 32.0-32.9, adult; Z79.01 Long term (current) use of anticoagulants; Z74.01 Bed confinement status
CPT/HCPCS: 36415; 74176; 76705; 78226; 80048; 80053; 81001; 82140; 82150; 82962; 83036; 83690; 85007; 85025; 85027; 87086; G0378; A9270-GY; A9537; C9113; J0696; J1815; J2405; J2704; J7030

== ENCOUNTER 2019-12-26 12:38 | Inpatient (IN) | payer MEDICARE ==
[2019-12-26 14:38] LABS: Calcium 9.5 mg/dL (8.4-10.2)
[2019-12-26 14:43] LABS: Hematocrit 36.5 % (30.3-42.9); Hemoglobin 12.1 gm/dl (10.1-14.3); Mean Corpuscular HGB Conc 33 % (30-34); Mean Corpuscular Volume 99 fl (79-97); Red Blood Count 3.69 M/mm3 (3.65-5.03); Red Cell Distribution Width 15.3 % (13.2-15.2)
--- NOTE | 2019-12-26 15:27 | Cat Scan Report ---
CT HEAD WITHOUT CONTRAST HISTORY: neuro deficits <6hrs or sx present upon awakening. TECHNIQUE: Axial imaging performed from the skull apex through the skull base without the use of con trast. All CT scans at this location are performed using CT dose reduction for ALARA by means of aut omated exposure control. COMPARISON: 11/26/2019 FINDINGS: Parenchyma: No acute intracranial hemorrhage or parenchymal abnormality.. Mild hypoattenuation thro ughout the white matter is noted and consistent with chronic microvascular ischemic disease. Ventricles: There is mild diffuse brain atrophy with commensurate ventricular enlargement which is l ikely age appropriate. Soft tissues: Soft tissues including the orbits appear normal. Bones: No acute osseous abnormality. Sinuses: Sinuses and mastoid air cells are clear. IMPRESSION: No acute abnormality. Volume loss and chronic white matter changes. No significant change since 11/26/2019. Signer Name: Jose Garcia Jr, MD Signed: 12/26/2019 3:23 PM Workstation Name: [id number]
[2019-12-26 15:30] LABS: Platelet Count 254 K/mm3 (140-440)
[2019-12-26 15:33] LABS: INR 2.15 (0.87-1.13)
[2019-12-26 15:34] LABS: Partial Thromboplastin Time 59.9 Sec. (24.2-36.6)
[2019-12-26 15:48] LABS: Chol/HDL Ratio 2.51 %
[2019-12-26] MEDS ORDERED: ASPIRIN 325 MG TAB PO ONE (19:11)
--- NOTE | 2019-12-26 19:19 | Emergency Department Report ---
HPI - General Chief Complaint: Weakness Time Seen by Provider: 12/26/19 18:33 - HPI HPI: Room 2 Patient is an 89-year-old female present with a chief complaint of dizziness and right-sided weakness. Family states the patient has not been out of bed for the past 5 days. They state for the past 3 days the patient is complained of double vision. The patient complains of feeling as though the room is spinning and feels like she is falling whenever she is lying flat or standing up. Patient denies headache or pain of any type. Patient states she is felt weak on her right side for the past 3 to 4 days. Patient denies chest pain or shortness of breath. Patient admits to nausea but denies vomiting. ED Past Medical Hx - Past Medical History Hx Hypertension: Yes Hx Diabetes: Yes Hx Renal Disease: Yes (CALLUM on CKD) Hx Arthritis: Yes - Surgical History Additional Surgical History: Vascular surgery to open up veins - Family History Family history: no significant - Social History Smoking Status: Never Smoker Substance Use Type: None - Medications Home Medications: Home Medications Medication Instructions Recorded Confirmed Last Taken Type Insulin Degludec (Nf) [Tresiba 30 units SUB-Q QDAY 04/28/19 12/26/19 04/27/19 History Flextouch U-100 (Nf)] 30 units Metoprolol [Lopressor TAB] 50 mg PO QDAY 04/28/19 12/26/19 04/27/19 History 1 tab Pregabalin [Lyrica] 50 mg PO QDAY 04/28/19 12/26/19 04/27/19 History 1 tab Simvastatin 20 mg PO QDAY 04/28/19 12/26/19 04/27/19 History 1 tab allopurinoL [Zyloprim] 100 mg PO QDAY 04/28/19 12/26/19 04/27/19 History 1 tab Clopidogrel [Plavix] 75 mg PO QDAY 10/14/19 12/26/19 Unknown History DULoxetine [Cymbalta] 30 mg PO QDAY 10/14/19 12/26/19 Unknown History Docusate Sodium [Colace CAP] 100 mg PO BID #30 capsule 10/17/19 12/26/19 Unknown Rx Ondansetron [Zofran ODT TAB] 4 mg PO Q12HR PRN #15 tab 10/17/19 12/26/19 Unknown Rx amLODIPine 2.5 mg PO QDAY 12/26/19 12/26/19 Unknown History ED Review of Systems ROS: Stated complaint: DOUBLE VISION/WEAK/HEAD PAIN Other details as noted in HPI Constitutional: no symptoms reported Eyes: denies: eye pain ENT: denies: throat pain Respiratory: denies: shortness of breath Cardiovascular: denies: chest pain Endocrine: no symptoms reported Gastrointestinal: nausea, vomiting Genitourinary: denies: dysuria Musculoskeletal: denies: back pain Neurological: weakness, vertigo. denies: headache Physical Exam - Physical Exam Vital Signs: Vital Signs 12/26/19 12/26/19 12:48 17:32 Temperature 97.9 F Pulse Rate 86 87 Respiratory 16 16 Rate Blood Pressure 165/75 137/57 [Right] O2 Sat by Pulse 100 99 Oximetry Physical Exam: GEN: WD WN female lying on stretcher. Patient leaning to her right side has mild tremulousness HEENT: NCAT, EOMI NECK: Positive carotid bruit auscultated on the left. No bruit auscultated on the right trachea midline PULM: CTA bilat. No resp distress noted CV: rrr no m/r/g ABD: s/nt/nd SKIN: no diaphoresis NEURO: GCS 15. Dysmetria noted with [id number] on the right. No dysmetria noted on the left. Cranial nerves II through XII grossly intact. Patient unable to raise either leg off the stretcher but able to point toes down bilaterally. Normal sensation throughout. Occasional stammering and loss of fluency during interview. NIHSS= 2 MUSCULOSKELETAL: No evidence of acute injury ED Course Vital Signs 12/26/19 12/26/19 12:48 17:32 Temperature 97.9 F Pulse Rate 86 87 Respiratory 16 16 Rate Blood Pressure 165/75 137/57 [Right] O2 Sat by Pulse 100 99 Oximetry ED Medical Decision Making - Lab Data Result diagrams: 12/26/19 13:53 12/26/19 13:53 Laboratory Tests 12/26/19 12/26/19 12/26/19 12:58 13:53 13:53 WBC 12.1 H RBC 3.69 Hgb 12.1 Hct 36.5 MCV 99 H MCH 33 H MCHC 33 RDW 15.3 H Plt Count 254 Lymph % (Auto) Gradall Operator [place] % (Auto) Gradall Operator Eos % (Auto) Gradall Operator Baso % (Auto) Gradall Operator Lymph # Gradall Operator [place] # Gradall Operator Eos # Gradall Operator Baso # Gradall Operator Seg Neutrophils % Gradall Operator Seg Neutrophils # Gradall Operator PT 24.4 H INR 2.15 H APTT 59.9 H Sodium Potassium Chloride Carbon Dioxide Anion Gap BUN Creatinine Estimated GFR BUN/Creatinine Ratio Glucose POC Glucose 191 H Calcium Troponin T Triglycerides Cholesterol LDL Cholesterol Direct HDL Cholesterol Cholesterol/HDL Ratio 12/26/19 13:53 WBC RBC Hgb Hct MCV MCH MCHC RDW Plt Count Lymph % (Auto) [place] % (Auto) Eos % (Auto) Baso % (Auto) Lymph # [place] # Eos # Baso # Seg Neutrophils % Seg Neutrophils # PT INR APTT Sodium 143 Potassium 4.4 Chloride 108.6 H Carbon Dioxide 17 L Anion Gap 22 BUN 35 H Creatinine 2.1 H Estimated GFR 27 BUN/Creatinine Ratio 17 Glucose 229 H POC Glucose Calcium 9.5 Troponin T 0.046 H Triglycerides 117 Cholesterol 151 LDL Cholesterol Direct 81 HDL Cholesterol 60 H Cholesterol/HDL Ratio 2.51 - EKG Data -: EKG Interpreted by Ct EKG shows normal: sinus rhythm Rate: normal - EKG Data When compared to previous EKG there are: previous EKG unavailable Interpretation: other (No ischemic changes) - Radiology Data Radiology results: report reviewed (CT head), image reviewed (CT head) [place] [address] Cat Scan Report Signed Patient: SHIRA LOPEZ MR#: [id number] : 1930 Acct:[id number] Age/Sex: 89 / F ADM Date: 12/26/19 Loc: ED Attending Dr: Ordering Physician: KARRI FUENTES MD Date of Service: 12/26/19 Procedure(s): CT head/brain wo con Accession Number(s): [id number] cc: KARRI FUENTES MD CT HEAD WITHOUT CONTRAST HISTORY: neuro deficits <6hrs or sx present upon awakening. TECHNIQUE: Axial imaging performed from the skull apex through the skull base without the use of contrast. All CT scans at this location are performed using CT dose reduction for ALARA by means of automated exposure control. COMPARISON: 11/26/2019 FINDINGS: Parenchyma: No acute intracranial hemorrhage or parenchymal abnormality.. Mild hypoattenuation throughout the white matter is noted and consistent with chronic microvascular ischemic disease. Ventricles: There is mild diffuse brain atrophy with commensurate ventricular enlargement which is likely age appropriate. Soft tissues: Soft tissues including the orbits appear normal. Bones: No acute osseous abnormality. Sinuses: Sinuses and mastoid air cells are clear. IMPRESSION: No acute abnormality. Volume loss and chronic white matter changes. No significant change since 11/26/2019. Signer Name: Jose Garcia Jr, MD Signed: 12/26/2019 3:23 PM Workstation Name: [id number] Transcribed By: TTR Dictated By: JOSE GARCIA JR, MD Electronically Authenticated By: JOSE GARCIA JR, MD Signed Date/Time: 12/26/19 152 DD/ 20 TD/TT: ] - Differential Diagnosis CVA, carotid stenosis Critical care attestation.: If time is entered above; I have spent that time in minutes in the direct care of this critically ill patient, excluding procedure time. ED Disposition Clinical Impression: Right sided weakness, Bruit of left carotid artery, Vertigo Disposition: OP ADMIT IP TO THIS HOSP Is pt being admited?: Yes Does the pt Need Aspirin: Yes Condition: Fair Referrals: PRIMARY CARE, [Primary Care Provider] - 3-5 Days Time of Disposition: 19:21 (Hospitalist notified of admission (Dr Addison))
[2019-12-26] MEDS ORDERED: MECLIZINE 25 MG TAB PO ONE (19:21)
[2019-12-26] MEDS ORDERED: ONDANSETRON 4 MG ODT TAB PO PRN (22:02)
[2019-12-26] MEDS ORDERED: HYDROmorphone 1 MG/1 ML INJ IV PRN (22:03)
[2019-12-26] MEDS ORDERED: oxyCODONE /ACETAMINOPHEN 5-325MG TAB PO PRN (22:03)
[2019-12-26] MEDS ORDERED: ACETAMINOPHEN 325 MG TAB PO PRN (22:03)
[2019-12-26] MEDS ORDERED: ONDANSETRON 4 MG/2 ML INJ IV PRN (22:03)
[2019-12-27] MEDS: INSULIN LISPRO 100 UNIT/ML SUB-Q SCH ×5 (00:34→21:30)
--- NOTE | 2019-12-27 06:42 | Event Note ---
Date: 12/26/19 See dictated H/P in reports
--- NOTE | 2019-12-27 09:26 | Progress Note ---
Subjective Date of service: 12/27/19 Interval history: neuro note chin continues to be very confused and poor memory CT shows white matter changes of ageing nothing acute await MRI to further defone whether stroke I will follow up nothing acute of the exam except memory loss/ dementai no family in room reviewed all the notes Objective - Vital Sign Vital Signs - 12hr 12/26/19 12/27/19 23:44 04:00 Temperature 98.4 F Pulse Rate 100 H 81 Respiratory 18 Rate Blood Pressure 154/68 O2 Sat by Pulse 100 Oximetry - Laboratory Findings CBC and BMP: 12/26/19 13:53 12/26/19 13:53 Abnormal Lab Findings: Abnormal Labs 12/26/19 12/26/19 12/26/19 12:58 13:53 13:53 WBC 12.1 H MCV 99 H MCH 33 H RDW 15.3 H PT 24.4 H INR 2.15 H APTT 59.9 H Thrombin Time Chloride Carbon Dioxide BUN Creatinine Glucose POC Glucose 191 H Troponin T HDL Cholesterol 12/26/19 12/26/19 12/26/19 13:53 13:53 22:57 WBC MCV MCH RDW PT INR APTT Thrombin Time 29.7 H Chloride 108.6 H Carbon Dioxide 17 L BUN 35 H Creatinine 2.1 H Glucose 229 H POC Glucose 229 H Troponin T 0.046 H HDL Cholesterol 60 H 12/27/19 08:03 WBC MCV MCH RDW PT INR APTT Thrombin Time Chloride Carbon Dioxide BUN Creatinine Glucose POC Glucose 180 H Troponin T HDL Cholesterol
[2019-12-27] MEDS: METOPROLOL TARTRATE 50 MG TAB PO SCH (09:53)
[2019-12-27] MEDS: DULoxetine 30 MG CAP PO SCH (09:56)
[2019-12-27] MEDS: CLOPIDOGREL 75 MG TAB PO SCH (09:56)
[2019-12-27] MEDS: PREGABALIN 25 MG CAP PO SCH (09:56)
[2019-12-27] MEDS: amLODIPine 10 MG TAB PO SCH (09:57)
[2019-12-27] MEDS: FAMOTIDINE 20 MG/2 ML INJ IV SCH ×2 (09:57→21:22)
[2019-12-27] MEDS: DOCUSATE SODIUM 100 MG CAP PO SCH ×2 (09:57→21:23)
[2019-12-27] MEDS: allopurinoL 100 MG TAB PO SCH (09:58)
--- NOTE | 2019-12-27 18:02 | Progress Note ---
Assessment and Plan (1) CVA (cerebral vascular accident) Current Visit: Yes Status: Acute Qualifiers: Laterality of affected vessel: left Plan to address problem: MRI pending PT/OT (2) Acute exacerbation of CHF (congestive heart failure) Current Visit: Yes Status: Acute Qualifiers: Heart failure type: combined systolic and diastolic Qualified Code(s): I50.43 - Acute on chronic combined systolic (congestive) and diastolic (congestive) heart failure Plan to address problem: IV lasix for now Cardiolgy consult requested (3) HLD (hyperlipidemia) Current Visit: No Status: Chronic Qualifiers: Hyperlipidemia type: mixed hyperlipidemia Qualified Code(s): E78.2 - Mixed hyperlipidemia Plan to address problem: Cont statins (4) HTN (hypertension) Current Visit: No Status: Chronic Qualifiers: Hypertension type: essential hypertension Qualified Code(s): I10 - Essential (primary) hypertension Plan to address problem: Cont antihypertensives (5) IDDM (insulin dependent diabetes mellitus) Current Visit: No Status: Chronic Plan to address problem: COnt Insulin and coverage (6) Peripheral neuropathy Current Visit: No Status: Chronic Qualifiers: Peripheral neuropathy type: polyneuropathy, unspecified Qualified Code(s): G62.9 - Polyneuropathy, unspecified Plan to address problem: Cnt Lyrica (7) Arthritis Current Visit: Yes Status: Chronic Plan to address problem: JENNIFER and CCp ds dna ordered (8) DVT prophylaxis Current Visit: No Status: Acute Plan to address problem: On Heparin and GI prophylaxis Subjective Date of service: 12/27/19 Principal diagnosis: Rt side weakness,CHF exacerbation Interval history: Admitted for possible stroke.Rt side weakness better.MRI pending.ECHO shows EF of 20 percent. Sx better Objective - Constitutional Vitals: Vital Signs - 12hr 12/27/19 12/27/19 12/27/19 07:52 09:49 12:04 Temperature 98.2 F 98.0 F Pulse Rate 93 H 82 Respiratory 22 20 Rate Blood Pressure 154/78 134/64 O2 Sat by Pulse 100 98 99 Oximetry General appearance: Present: no acute distress, well-nourished - EENT Eyes: PERRL, EOM intact ENT: hearing intact, clear oral mucosa Ears: bilateral: normal - Neck Neck: supple, normal ROM - Respiratory Respiratory effort: normal Respiratory: bilateral: CTA - Breasts Breasts: normal - Cardiovascular Heart rate: 78 Rhythm: regular Heart Sounds: Present: S1 & S2. Absent: gallop, rub Extremities: pulses intact, No edema, normal color, Full ROM - Gastrointestinal General gastrointestinal: Present: soft, non-tender, non-distended, normal bowel sounds - Genitourinary Female genitourinary: normal - Integumentary Integumentary: clear, warm, dry - Musculoskeletal Musculoskeletal: right sided weakness - Neurologic Neurologic: moves all extremities - Psychiatric Psychiatric: memory intact, appropriate mood/affect, intact judgment & insight - Labs CBC & Chem 7: 12/26/19 13:53 12/26/19 13:53 Labs: Abnormal lab results 12/26/19 12/26/19 12/26/19 Range/Units 12:58 13:53 13:53 Thrombin Time 29.7 H (15.1-19.6) Sec. Chloride 108.6 H (98-107) mmol/L Carbon Dioxide 17 L (22-30) mmol/L BUN 35 H (7-17) mg/dL Creatinine 2.1 H (0.7-1.2) mg/dL Glucose 229 H (65-100) mg/dL POC Glucose 191 H (70-105) Troponin T 0.046 H (0.00-0.029) ng/mL HDL Cholesterol 60 H (40-59) mg/dL 12/26/19 12/27/19 12/27/19 Range/Units 22:57 08:03 12:16 Thrombin Time (15.1-19.6) Sec. Chloride (98-107) mmol/L Carbon Dioxide (22-30) mmol/L BUN (7-17) mg/dL Creatinine (0.7-1.2) mg/dL Glucose (65-100) mg/dL POC Glucose 229 H 180 H 148 H (70-105) Troponin T (0.00-0.029) ng/mL HDL Cholesterol (40-59) mg/dL 12/27/19 Range/Units 16:39 Thrombin Time (15.1-19.6) Sec. Chloride (98-107) mmol/L Carbon Dioxide (22-30) mmol/L BUN (7-17) mg/dL Creatinine (0.7-1.2) mg/dL Glucose (65-100) mg/dL POC Glucose 189 H (70-105) Troponin T (0.00-0.029) ng/mL HDL Cholesterol (40-59) mg/dL
--- NOTE | 2019-12-27 18:08 | History and Physical Report ---
CHIEF COMPLAINT: Right-sided weakness for 5 days. HISTORY OF PRESENT ILLNESS: An 89-year-old female who comes in for right-sided weakness for 5 days. The patient has a history of hypertension, insulin-dependent diabetes, hyperlipidemia, depression, coronary artery disease, gout, and peripheral neuropathy. Family states the patient has not been out of bed for 5 days. The patient also has right-sided weakness. The patient has severe chronic arthritis and has decreased range of motion in her right shoulder. Apparently, the patient not able to walk for the last 5 days. The patient is being held, being fed in the bed. No seizures. No syncope. No chest pain. No precipitating factors. PAST MEDICAL HISTORY: Significant for hypertension, diabetes, depression, coronary artery disease, gout, hyperlipidemia, and peripheral neuropathy. PAST SURGICAL HISTORY: Vascular surgery to open up veins/arteries. FAMILY HISTORY: Hypertension. SOCIAL HISTORY: Does not smoke. No alcohol, no recreational drugs. Lives with family. REVIEW OF SYSTEMS: Significant for right-sided weakness and also has chronic joint pains, especially small joints and has contractures in both the hands. A 14-point review of systems done. Otherwise, negative. PHYSICAL EXAMINATION: GENERAL: Elderly female, cooperative during examination. Alert and oriented, but a poor historian. VITAL SIGNS: Blood pressure was 165/75, temperature 97.9, pulse is 86, respiratory rate is 16, sats 100%. HEENT: Unremarkable. Pupils equal and reactive. NECK: Supple, no lymphadenopathy, no thyromegaly. LUNGS: Clear to auscultation and percussion. Good air entry. CARDIOVASCULAR: S1, S2 heard. No gallop, no murmur, no rub. Apical impulse in left fifth intercostal space and midclavicular line. ABDOMEN: Soft and benign. No hepatosplenomegaly. No guarding, no rigidity. Hernial orifices are normal. EXTREMITIES: Both the hands have contractures of all the fingers present consistent with rheumatoid arthritis. The patient has 3/5 power in right upper and right lower extremity. LABS: White count is 12,100, H and H is 12.1 and 36.5, platelet count is 254,000. Sodium is 143, potassium is 4.4, BUN and creatinine is 35 and 2.1, glucose is 2.9 and 191. Troponin is 0.046. HDL is 60. Head CT showed no acute abnormality, volume loss, and chronic white matter changes. Echocardiogram showed estimated ejection fraction of only 15-20%. Right ventricular global systolic function is normal. Left ventricular systolic function is severely decreased. ASSESSMENT AND PLAN: 1. Acute cerebrovascular accident. The patient has right-sided weakness. The patient to get a stroke workup. The patient to get MRI and also carotid duplex scan and echocardiogram. Echocardiogram showed low ejection fraction of 15% on the left side. 2. Acute kidney injury. IV fluids for now. 3. Elevated troponin levels secondary to elevated creatinine and troponin leak consistent with [id number] myocardial infarction 2. 4. Hypertension. Continue antihypertensives. 5. Hyperlipidemia. Continue statins. 6. Insulin-dependent diabetes. Continue insulin and coverage. 7. Depression. Continue Cymbalta. 8. Coronary artery disease. Continue Plavix. 9. Gout. Continue allopurinol for prevention. 10. Peripheral neuropathy. Continue gabapentin. 11. Deep venous thrombosis prophylaxis, heparin 5000 q. 12 and gastrointestinal prophylaxis. JOB# [id number] VSM/NTS
[2019-12-27] MEDS: SODIUM CHLORIDE 0.9% 1000 ML 1,000 ML IV SCH (18:39)
[2019-12-27] MEDS: PRAVASTATIN 40 MG TAB PO SCH (21:22)
[2019-12-28] MEDS: SODIUM CHLORIDE 0.9% 1000 ML 1,000 ML IV SCH (05:55)
[2019-12-28] MEDS: INSULIN LISPRO 100 UNIT/ML SUB-Q SCH ×4 (08:00→23:01)
[2019-12-28] MEDS: amLODIPine 10 MG TAB PO SCH (10:33)
[2019-12-28] MEDS: DULoxetine 30 MG CAP PO SCH (10:33)
[2019-12-28] MEDS: CLOPIDOGREL 75 MG TAB PO SCH (10:34)
[2019-12-28] MEDS: PREGABALIN 25 MG CAP PO SCH (10:34)
[2019-12-28] MEDS: allopurinoL 100 MG TAB PO SCH (10:34)
[2019-12-28] MEDS: METOPROLOL TARTRATE 50 MG TAB PO SCH (10:35)
[2019-12-28] MEDS: FAMOTIDINE 20 MG/2 ML INJ IV SCH ×2 (10:35→23:01)
[2019-12-28] MEDS: DOCUSATE SODIUM 100 MG CAP PO SCH ×2 (10:35→23:01)
[2019-12-28] MEDS: PRAVASTATIN 40 MG TAB PO SCH (23:01)
--- NOTE | 2019-12-29 07:58 | Progress Note ---
Assessment and Plan - Patient Problems (1) CVA (cerebral vascular accident) Current Visit: Yes Status: Acute Qualifiers: Laterality of affected vessel: left Plan to address problem: MRI pending PT/OT (2) Acute exacerbation of CHF (congestive heart failure) Current Visit: Yes Status: Acute Qualifiers: Heart failure type: combined systolic and diastolic Qualified Code(s): I50.43 - Acute on chronic combined systolic (congestive) and diastolic (congestive) heart failure Plan to address problem: IV lasix for now Cardiolgy consult requested (3) HLD (hyperlipidemia) Current Visit: No Status: Chronic Qualifiers: Hyperlipidemia type: mixed hyperlipidemia Qualified Code(s): E78.2 - Mixed hyperlipidemia Plan to address problem: Cont statins (4) HTN (hypertension) Current Visit: No Status: Chronic Qualifiers: Hypertension type: essential hypertension Qualified Code(s): I10 - Essential (primary) hypertension Plan to address problem: Cont antihypertensives (5) IDDM (insulin dependent diabetes mellitus) Current Visit: No Status: Chronic Plan to address problem: COnt Insulin and coverage (6) Peripheral neuropathy Current Visit: No Status: Chronic Qualifiers: Peripheral neuropathy type: polyneuropathy, unspecified Qualified Code(s): G62.9 - Polyneuropathy, unspecified Plan to address problem: Cnt Lyrica (7) Arthritis Current Visit: Yes Status: Chronic Plan to address problem: JENNIFER and CCp ds dna ordered (8) DVT prophylaxis Current Visit: No Status: Acute Plan to address problem: On Heparin and GI prophylaxis Subjective Date of service: 12/28/19 Principal diagnosis: Rt side weakness Interval history: Admitted for possible stroke.Rt side weakness better.MRI pending.ECHO shows EF of 20 percent. Sx better Objective - Constitutional Vitals: Vital Signs - 12hr 12/28/19 12/28/19 12/28/19 20:01 21:04 22:00 Temperature 98.7 F Pulse Rate 81 82 Respiratory 20 20 Rate Blood Pressure 154/66 O2 Sat by Pulse 96 Oximetry 12/29/19 12/29/19 12/29/19 00:09 02:41 04:49 Temperature 98.0 F 98.0 F Pulse Rate 85 82 74 Respiratory 20 20 Rate Blood Pressure 160/77 133/67 O2 Sat by Pulse 100 93 Oximetry General appearance: Present: no acute distress, well-nourished - EENT Eyes: PERRL, EOM intact ENT: hearing intact, clear oral mucosa Ears: bilateral: normal - Neck Neck: supple, normal ROM - Respiratory Respiratory effort: normal Respiratory: bilateral: CTA - Breasts Breasts: normal - Cardiovascular Heart rate: 88 Rhythm: regular Heart Sounds: Present: S1 & S2. Absent: gallop, rub Extremities: pulses intact, No edema, normal color, Full ROM - Gastrointestinal General gastrointestinal: Present: soft, non-tender, non-distended, normal bowel sounds - Genitourinary Female genitourinary: normal - Integumentary Integumentary: clear, warm, dry - Musculoskeletal Musculoskeletal: 1, strength equal bilaterally - Neurologic Neurologic: moves all extremities - Psychiatric Psychiatric: memory intact, appropriate mood/affect, intact judgment & insight - Labs CBC & Chem 7: 12/26/19 13:53 12/26/19 13:53 Labs: Abnormal lab results 12/28/19 Range/Units 21:49 POC Glucose 139 H (70-105)
[2019-12-29] MEDS: INSULIN LISPRO 100 UNIT/ML SUB-Q SCH ×3 (11:04→17:07)
--- NOTE | 2019-12-29 11:12 | Magnetic Resonance Report ---
MRI BRAIN WITHOUT CONTRAST INDICATION / CLINICAL INFORMATION: stroke. TECHNIQUE: Multisequence, multiplanar images were obtained. COMPARISON: CT head dated 12/26/2019 FINDINGS: CEREBRAL and CEREBELLAR HEMISPHERES: MRI demonstrates a 1.1 x 0.9 cm area of diffusion restriction in the left posterior jen on image 11. No other areas of diffusion restriction are identified. Mild d iffuse volume loss and moderate chronic microangiopathy in the white matter are noted. No chronic inf arct is identified. No acute hemorrhage. No extra-axial fluid collection. VENTRICLES: Normal in size and configuration for age. VISUALIZED ORBITS: No significant abnormality. VISUALIZED PARANASAL SINUSES: No significant abnormality. ADDITIONAL FINDINGS: None. IMPRESSION: 1.1 x 0.9 cm subacute ischemic infarct in the left posterior jen. Mild volume loss. Moderate nonspecific chronic white matter changes. Signer Name: Jose Garcia Jr, MD Signed: 12/29/2019 11:07 AM Workstation Name: [id number]
[2019-12-29] MEDS: METOPROLOL TARTRATE 50 MG TAB PO SCH (11:32)
[2019-12-29] MEDS: allopurinoL 100 MG TAB PO SCH (11:32)
[2019-12-29] MEDS: CLOPIDOGREL 75 MG TAB PO SCH (11:32)
[2019-12-29] MEDS: PREGABALIN 25 MG CAP PO SCH (11:33)
[2019-12-29] MEDS: amLODIPine 10 MG TAB PO SCH (11:33)
[2019-12-29] MEDS: DULoxetine 30 MG CAP PO SCH (11:33)
[2019-12-29] MEDS: DOCUSATE SODIUM 100 MG CAP PO SCH ×2 (11:33→21:11)
[2019-12-29] MEDS: FAMOTIDINE 20 MG/2 ML INJ IV SCH (11:34)
--- NOTE | 2019-12-29 14:06 | Vascular Lab Report ---
BILATERAL CAROTID DOPPLER ULTRASOUND INDICATION : stroke TECHNIQUE: Grayscale and color Doppler imaging performed through the neck. COMPARISON: None FINDINGS: Right: There is minimal calcific plaque in the bulb. Peak systolic velocity in the CCA is 52 cm/s w ith end-diastolic velocity of 7 cm/s. Peak systolic velocity in the proximal ICA is 67 cm/s with end- diastolic velocity of 16 cm/s. ICA to CCA ratio is less than 2. There is antegrade flow in the ECA a nd the vertebral artery. Left: There is mild to moderate partially calcified plaque is identified in the bulb and proximal ICA . Peak systolic velocity in the CCA is 82 cm/s with end-diastolic velocity of 11 cm/s. Peak systolic velocity in the proximal ICA is 68 cm/s with end-diastolic velocity of 11 cm/s. ICA to CCA ratio is l ess than 2. There is antegrade flow in the ECA and the vertebral artery. IMPRESSION: No hemodynamically significant stenosis by NASCET criteria. Signer Name: Jose Garcia Jr, MD Signed: 12/29/2019 2:01 PM Workstation Name: [id number]
--- NOTE | 2019-12-29 15:42 | Consultation ---
History of Present Illness Consult date: 12/29/19 Consult reason: congestive heart failure History of present illness: This is a frail, 89 year old woman who presented with right sided weakness, admitted with suspected CVA. initial workup with a head CT scan reports no acute intracranial abnormality. Today, a MRI of the brain revealed subacute infarcts in the left posterior jen. Neurology evaluation is in progress. Further evaluation with an echocardiogram showed a severely decreased left ventricular systolic function, ejection fraction 15-20%. There was also moderate mitral stenosis. The duration of this cardiomyopathy is uncertain. Patient has a history of PVD and is on Plavix for antiplatelet therapy. She also has a history of hypertension and diabetes. Patient denies a prior cardiac history and had no recent cardiac workup. There is no complaints of shortness of breath, chest pain or palpitations. Her presenting ECG is benign, normal sinus rhythm. A cardiac consultation has been requested for CHF evaluation. Medications and Allergies Allergies Allergy/AdvReac Type Severity Reaction Status Date / Time Sulfa (Sulfonamide Allergy Swelling Verified 12/26/19 22:04 Antibiotics) Home Medications Medication Instructions Recorded Confirmed Last Taken Type Insulin Degludec (Nf) [Tresiba 30 units SUB-Q QDAY 04/28/19 12/26/19 04/27/19 History Flextouch U-100 (Nf)] 30 units Metoprolol [Lopressor TAB] 50 mg PO QDAY 04/28/19 12/26/19 04/27/19 History 1 tab Pregabalin [Lyrica] 50 mg PO QDAY 04/28/19 12/26/19 04/27/19 History 1 tab Simvastatin 20 mg PO QDAY 04/28/19 12/26/19 04/27/19 History 1 tab allopurinoL [Zyloprim] 100 mg PO QDAY 04/28/19 12/26/19 04/27/19 History 1 tab Clopidogrel [Plavix] 75 mg PO QDAY 10/14/19 12/26/19 Unknown History DULoxetine [Cymbalta] 30 mg PO QDAY 10/14/19 12/26/19 Unknown History Docusate Sodium [Colace CAP] 100 mg PO BID #30 capsule 10/17/19 12/26/19 Unknown Rx Ondansetron [Zofran ODT TAB] 4 mg PO Q12HR PRN #15 tab 10/17/19 12/26/19 Unknown Rx amLODIPine 2.5 mg PO QDAY 12/26/19 12/26/19 Unknown History Active Meds: Active Medications Acetaminophen (Tylenol) 650 mg PO Q4H PRN PRN Reason: Pain MILD(1-3)/Fever >100.5/COLBY Allopurinol (Zyloprim) 100 mg PO QDAY [facility] Last Admin: 12/29/19 11:32 Dose: 100 mg Documented by: Amlodipine Besylate (Amlodipine) 2.5 mg PO QDAY [facility] Last Admin: 12/29/19 11:33 Dose: 2.5 mg Documented by: Atorvastatin Calcium (Lipitor) 40 mg PO QHS [facility] Last Admin: 12/28/19 23:01 Dose: 40 mg Documented by: Clopidogrel Bisulfate (Plavix) 75 mg PO QDAY [facility] Last Admin: 12/29/19 11:32 Dose: 75 mg Documented by: Docusate Sodium (Colace) 100 mg PO BID [facility] Last Admin: 12/29/19 11:33 Dose: 100 mg Documented by: Duloxetine HCl (Cymbalta) 30 mg PO QDAY [facility] Last Admin: 12/29/19 11:33 Dose: 30 mg Documented by: Famotidine (Pepcid) 20 mg IV BID [facility] Last Admin: 12/29/19 11:34 Dose: 20 mg Documented by: Hydromorphone HCl (Dilaudid) 0.5 mg IV Q3H PRN PRN Reason: Pain , Severe (7-10) Sodium Chloride (Nacl 0.9% 1000 Ml) 1,000 mls @ 75 mls/hr IV DIRECT [facility] Last Admin: 12/28/19 05:55 Dose: 75 mls/hr Documented by: Insulin Human Lispro (Humalog) 0 unit SUB-Q ACHS [facility]; Protocol Last Admin: 12/29/19 12:44 Dose: Not Given Documented by: Metoprolol Tartrate (Metoprolol) 50 mg PO QDAY [facility] Last Admin: 12/29/19 11:32 Dose: 50 mg Documented by: Ondansetron HCl (Zofran) 4 mg IV Q8H PRN PRN Reason: Nausea And Vomiting Oxycodone/Acetaminophen (Percocet 5/325) 1 tab PO Q6H PRN PRN Reason: Pain, Moderate (4-6) Pravastatin Sodium (Pravachol) 40 mg PO QHS [facility] Last Admin: 12/28/19 23:01 Dose: 40 mg Documented by: Pregabalin (Pregabalin) 50 mg PO QDAY [facility] Last Admin: 12/29/19 11:33 Dose: 50 mg Documented by: Sodium Chloride (Sodium Chloride Flush Syringe 10 Ml) 10 ml IV BID [facility] Last Admin: 12/29/19 11:34 Dose: 10 ml Documented by: Sodium Chloride (Sodium Chloride Flush Syringe 10 Ml) 10 ml IV PRN PRN PRN Reason: LINE FLUSH Physical Examination Vital Signs Temp Pulse Resp BP Pulse Ox 97.9 F 86 16 165/75 100 12/26/19 12:48 12/26/19 12:48 12/26/19 12:48 12/26/19 12:48 12/26/19 12:48 General appearance: no acute distress HEENT: Positive: PERRL Neck: Positive: trachea midline Cardiac: Positive: Reg Rate and Rhythm Lungs: Positive: Decreased Breath Sounds Results 12/26/19 13:53 12/26/19 13:53 Assessment and Plan Dilated Cardiomyopathy, uncertain duration echo reports severely decreased left ventricular systolic function, ejection fraction 15-20%. There was also moderate mitral stenosis. Acute CVA Hypertension Diabetes Hx of PVD -on plavix
--- NOTE | 2019-12-29 19:45 | Progress Note ---
Assessment and Plan Assessment and plan: (1) CVA (cerebral vascular accident) Current Visit: Yes Status: Acute Qualifiers: Laterality of affected vessel: left Plan to address problem: Subacute CVA noted on MRI possible embolic. 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 (3) HLD (hyperlipidemia) Current Visit: No Status: Chronic Qualifiers: Hyperlipidemia type: mixed hyperlipidemia Qualified Code(s): E78.2 - Mixed hyperlipidemia Plan to address problem: Cont statins (4) HTN (hypertension) Current Visit: No Status: Chronic Qualifiers: Hypertension type: essential hypertension Qualified Code(s): I10 - Essential (primary) hypertension Plan to address problem: Cont antihypertensives (5) IDDM (insulin dependent diabetes mellitus) Current Visit: No Status: Chronic Plan to address problem: COnt Insulin and coverage (6) Peripheral neuropathy Current Visit: No Status: Chronic Qualifiers: Peripheral neuropathy type: polyneuropathy, unspecified Qualified Code(s): G62.9 - Polyneuropathy, unspecified Plan to address problem: Cnt Lyrica (7) Arthritis Current Visit: Yes Status: Chronic Plan to address problem: JENNIFER and CCp ds dna ordered (8) metabolic encephalopathy with intermittent hallucination Could be secondary to CVA Continue to monitor Fall precaution (9)DVT prophylaxis Current Visit: No Status: Acute Plan to address problem: On Heparin and GI prophylaxis History Interval history: Patient seen and examined resting comfortably family concerned the patient still having intermittent periods of hallucination. No evidence of altered mental status at the time of my examination. No other adverse event reported to me. Findings on imaging studies discussed with daughter at bedside. Hospitalist Physical - Physical exam Narrative exam: VITAL SIGNS: Reviewed. GENERAL: The patient appears normally developed, Vital signs as documented. HEAD: No signs of head trauma. EYES: Pupils are equal. Extraocular motions intact. EARS: Hearing grossly intact. MOUTH: Oropharynx is normal. NECK: No adenopathy, no JVD. CHEST: Chest with clear breath sounds bilaterally. No wheezes, rales, or r honchi. CARDIAC: Regular rate and rhythm. S1 and S2, without murmurs, gallops, or rubs. VASCULAR: No Edema. Peripheral pulses normal and equal in all extremities. ABDOMEN: Soft, non tender and non distended. No rebound or guarding, and no masses palpated. Bowel Sounds normal. MUSCULOSKELETAL: Good range of motion of all major joints. Extremities without clubbing, cyanosis or edema. NEUROLOGIC EXAM: Alert and oriented x 3 4/5 weakness noted in the right side upper extremity. Bilateral lower extremity weakness speech normal. Follows commands. PSYCHIATRIC: Mood normal. SKIN: detial exam as documented in skin assessment - Constitutional Vitals: Temp Pulse Resp BP Pulse Ox 98.3 F 83 19 169/79 99 12/29/19 08:53 12/29/19 17:00 12/29/19 10:00 12/29/19 12:08 12/29/19 12:08 General appearance: Present: no acute distress Results - Labs CBC & Chem 7: 12/26/19 13:53 12/30/19 06:00 Labs: Laboratory Last Values WBC 12.1 K/mm3 (4.5-11.0) H 12/26/19 13:53 RBC 3.69 M/mm3 (3.65-5.03) 12/26/19 13:53 Hgb 12.1 gm/dl (10.1-14.3) 12/26/19 13:53 Hct 36.5 % (30.3-42.9) 12/26/19 13:53 MCV 99 fl (79-97) H 12/26/19 13:53 MCH 33 pg (28-32) H 12/26/19 13:53 MCHC 33 % (30-34) 12/26/19 13:53 RDW 15.3 % (13.2-15.2) H 12/26/19 13:53 Plt Count 254 K/mm3 (140-440) 12/26/19 13:53 Lymph % (Auto) [employer]er 12/26/19 13:53 [place] % (Auto) Mineral Mixer 12/26/19 13:53 Eos % (Auto) [employer] Mixer 12/26/19 13:53 Baso % (Auto) [employer] Mixer 12/26/19 13:53 Lymph # [employer] Mixer 12/26/19 13:53 [place] # Mineral Mixer 12/26/19 13:53 Eos # Mineral Mixer 12/26/19 13:53 Baso # Mineral Mixer 12/26/19 13:53 Seg Neutrophils % [employer] Mixer 12/26/19 13:53 Seg Neutrophils # Mineral Mixer 12/26/19 13:53 ESR 77 mm/Hr (0-20) 12/29/19 14:48 PT 24.4 Sec. (12.2-14.9) H 12/26/19 13:53 INR 2.15 (0.87-1.13) H 12/26/19 13:53 APTT 59.9 Sec. (24.2-36.6) H 12/26/19 13:53 Thrombin Time 29.7 Sec. (15.1-19.6) H 12/26/19 13:53 Sodium 143 mmol/L (137-145) 12/26/19 13:53 Potassium 4.4 mmol/L (3.6-5.0) 12/26/19 13:53 Chloride 108.6 mmol/L (98-107) H 12/26/19 13:53 Carbon Dioxide 17 mmol/L (22-30) L 12/26/19 13:53 Anion Gap 22 mmol/L 12/26/19 13:53 BUN 35 mg/dL (7-17) H 12/26/19 13:53 Creatinine 2.1 mg/dL (0.7-1.2) H 12/26/19 13:53 Estimated GFR 27 ml/min 12/26/19 13:53 BUN/Creatinine Ratio 17 % 12/26/19 13:53 Glucose 229 mg/dL (65-100) H 12/26/19 13:53 POC Glucose 184 (70-105) H 12/29/19 16:07 Calcium 9.5 mg/dL (8.4-10.2) 12/26/19 13:53 Troponin T 0.046 ng/mL (0.00-0.029) H 12/26/19 13:53 C-Reactive Protein 4.80 mg/dL (0.00-1.30) H 12/29/19 12:15 Triglycerides 117 mg/dL (2-149) 12/26/19 13:53 Cholesterol 151 mg/dL (50-199) 12/26/19 13:53 LDL Cholesterol Direct 81 mg/dL (50-130) 12/26/19 13:53 HDL Cholesterol 60 mg/dL (40-59) H 12/26/19 13:53 Cholesterol/HDL Ratio 2.51 % 12/26/19 13:53 Active Medications - Current Medications Current Medications: Generic Name Dose Route Start Last Admin Trade Name Freq PRN Reason Stop Dose Admin Acetaminophen 650 mg 12/26/19 22:03 Tylenol PO Q4H PRN Pain MILD(1-3)/Fever >100.5/COLBY Allopurinol 100 mg 12/27/19 10:00 12/29/19 11:32 Zyloprim PO 100 mg QDAY CAROLINA Administration Amlodipine Besylate 2.5 mg 12/27/19 10:00 12/29/19 11:33 Amlodipine PO 2.5 mg QDAY [place] Administration Aspirin 81 mg 12/29/19 20:00 Baby Aspirin PO QDAY CAR[place]INA Atorvastatin Calcium 40 mg 12/27/19 22:00 12/28/19 23:01 Lipitor PO 40 mg QHS [place] Administration Clopidogrel Bisulfate 75 mg 12/27/19 10:00 12/29/19 11:32 Plavix PO 75 mg QDAY [place] Administration Docusate Sodium 100 mg 12/27/19 10:00 12/29/19 11:33 Colace PO 100 mg BID CAR[place]INA Administration Duloxetine HCl 30 mg 12/27/19 10:00 12/29/19 11:33 Cymbalta PO 30 mg QDAY [place] Administration Famotidine 20 mg 12/29/19 22:00 Pepcid PO BID CAR[place] Hydromorphone HCl 0.5 mg 12/26/19 22:03 Dilaudid IV Q3H PRN Pain , Severe (7-10) Sodium Chloride 1,000 mls @ 75 mls/hr 12/27/19 18:15 12/28/19 05:55 Nacl 0.9% 1000 Ml IV 75 mls/hr DIRECT CAROLINA Administration Insulin Human Lispro 0 unit 12/27/19 00:15 12/29/19 17:07 Humalog SUB-Q 2 unit ACHS CAROLINA Administration Protocol Metoprolol Tartrate 50 mg 12/27/19 10:00 12/29/19 11:32 Metoprolol PO 50 mg QDAY [place] Administration Ondansetron HCl 4 mg 12/26/19 22:03 Zofran IV Q8H PRN Nausea And Vomiting Oxycodone/Acetaminophen 1 tab 12/26/19 22:03 Percocet 5/325 PO Q6H PRN Pain, Moderate (4-6) Pravastatin Sodium 40 mg 12/27/19 22:00 12/28/19 23:01 Pravachol PO 40 mg QHS [place] Administration Pregabalin 50 mg 12/27/19 10:00 12/29/19 11:33 Pregabalin PO 50 mg QDAY [place] Administration Sodium Chloride 10 ml 12/27/19 10:00 12/29/19 11:34 Sodium Chloride Flush Syringe 10 Ml IV 10 ml BID [place]INA Administration Sodium Chloride 10 ml 12/26/19 22:03 Sodium Chloride Flush Syringe 10 Ml IV PRN PRN LINE FLUSH Nutrition/Malnutrition Assess - Dietary Evaluation Nutrition/Malnutrition Findings: Nutrition Notes Start: 12/27/19 14:21 Freq: Status: Active Protocol: Document 12/27/19 14:21 OMER (Rec: 12/27/19 14:33 [email or web address]) Nutrition Notes Need for Assessment generated from: scrap carrier Initial or Follow up Assessment Other Pertinent Diagnosis Ulcers on R and L heals, sacrum, AMS, HTN, DM, CALLUM on CKD, HLD Current Diet Cardiac/consistent CHO diet Labs/Tests none for 12/27 Pertinent Medications Colace Humalog Height 5 ft 3 in Weight 79.4 kg [place] Body Weight (kg) 52.27 BMI 31.0 Intake Prior to Admission Good Weight change and time frame Pt family denied recent weight loss Weight Status Obese Subjective/Other Information Pt screened for skin risk. [place] = 16. Pt family stated pt appetite was good [employer]HOSTESS. RD observed bfast tray with 100% of food consumed. Percent of energy/protein needs met: 100%/100% Burn Absent Trauma Absent Current % PO Good (75-100%) Minimum of two criteria No physical signs of malnutrition #1 Nutrition Diagnosis Increased nutrient needs ( specify in comment below) Comments: Protein Etiology Wound healing As Evidenced by Signs and Symptoms Ulcers on both heels and sacrum Is patient on ventilator? No Is Patient Ambulatory and/or Out of Bed No REE-([facility]-confined to bed) [phone] Calculation Used for Recommendations Marlyn Connolly Additional Notes Pro needs: 82-99g/day (1.25-1. 5 g/kg AdjBW of 65.7kg) Nutrition Intervention Change Diet Order: Continue cardiac/consistent CHO diet Add Supplement/Snack (indicate name/kcal Agus BID /protein ) Provides kCal: 190 Provides Protein (gm) 5 Goal #1 continue to meet at least 80% of estimated calorie and protein needs Goal #2 wound healing Anticipated Discharge Needs: cardiac/consistent CHO diet w/ Agus BID Follow-Up By: 12/30/19 Additional Comments F/u for PO/Agus intakes
[2019-12-29] MEDS: ASPIRIN 81 MG TAB CHEW PO SCH (21:11)
[2019-12-29] MEDS: PRAVASTATIN 40 MG TAB PO SCH (21:11)
[2019-12-29] MEDS: FAMOTIDINE 20 MG TAB PO SCH (21:11)
[2019-12-30] MEDS: INSULIN LISPRO 100 UNIT/ML SUB-Q SCH ×5 (00:32→21:35)
[2019-12-30] MEDS: FAMOTIDINE 20 MG TAB PO SCH (10:39)
[2019-12-30] MEDS: CLOPIDOGREL 75 MG TAB PO SCH (10:39)
[2019-12-30] MEDS: allopurinoL 100 MG TAB PO SCH (10:39)
[2019-12-30] MEDS: METOPROLOL TARTRATE 50 MG TAB PO SCH (10:39)
[2019-12-30] MEDS: amLODIPine 10 MG TAB PO SCH (10:40)
[2019-12-30] MEDS: ASPIRIN 81 MG TAB CHEW PO SCH (10:40)
[2019-12-30] MEDS: PREGABALIN 25 MG CAP PO SCH (10:40)
[2019-12-30] MEDS: DULoxetine 30 MG CAP PO SCH (10:40)
[2019-12-30] MEDS: DOCUSATE SODIUM 100 MG CAP PO SCH ×2 (10:40→21:36)
--- NOTE | 2019-12-30 13:12 | Progress Note ---
Assessment and Plan Dilated Cardiomyopathy, uncertain duration echo reports severely decreased left ventricular systolic function, ejection fraction 15-20%. There was also moderate mitral stenosis. Acute CVA Hypertension Diabetes Hx of PVD -on plavix as an outpatient Recommendations: Medical therapy for chronic systolic left ventricular dysfunction. We'll defer to neurology, regarding anticoagulation therapy if indicated in this setting of CVA. Otherwise, conservative cardiac management. Subjective Date of service: 12/30/19 Principal diagnosis: Rt side weakness,CHF exacerbation Interval history: Patient has no cardiac complaints. Objective Vital Signs Temp Pulse Pulse Pulse Pulse Resp BP 12/30/19 11:39 98.4 F 86 18 158/83 12/30/19 11:35 93 H 150/74 12/30/19 10:40 93 H 150/74 12/30/19 10:39 93 H 150/74 12/30/19 10:00 93 H 93 H 93 H 21 12/30/19 09:11 97.9 F 89 18 166/71 12/30/19 09:00 88 12/30/19 03:55 98.3 F 84 18 173/77 12/30/19 01:00 77 12/29/19 22:14 19 12/29/19 19:25 98.4 F 82 20 145/67 12/29/19 17:00 83 Pulse Ox 12/30/19 11:39 92 12/30/19 11:35 100 12/30/19 10:40 12/30/19 10:39 12/30/19 10:00 12/30/19 09:11 100 12/30/19 09:00 12/30/19 03:55 98 12/30/19 01:00 12/29/19 22:14 12/29/19 19:25 100 12/29/19 17:00 - Physical Examination General: No Apparent Distress HEENT: Positive: PERRL Neck: Positive: trachea midline Cardiac: Positive: Reg Rate and Rhythm Lungs: Positive: Decreased Breath Sounds - Labs and Meds Cardiac Enzymes 12/30/19 Range/Units 06:00 AST 9 (5-40) units/L Comprehensive Metabolic Panel 12/30/19 Range/Units 06:00 Sodium 143 (137-145) mmol/L Potassium 3.8 (3.6-5.0) mmol/L Chloride 111.0 H (98-107) mmol/L Carbon Dioxide 17 L (22-30) mmol/L BUN 29 H (7-17) mg/dL Creatinine 1.8 H (0.7-1.2) mg/dL Glucose 127 H (65-100) mg/dL Calcium 9.0 (8.4-10.2) mg/dL AST 9 (5-40) units/L ALT 10 (7-56) units/L Alkaline Phosphatase 82 (35-129) units/L Total Protein 6.3 (6.3-8.2) g/dL Albumin 3.0 L (3.9-5) g/dL
[2019-12-30] MEDS: SODIUM CHLORIDE 0.9% 1000 ML 1,000 ML IV SCH (14:45)
--- NOTE | 2019-12-30 16:33 | Progress Note ---
Subjective Date of service: 12/30/19 Principal diagnosis: Rt side weakness,CHF exacerbation Interval history: I did check the MRI personally and totally agree there is small dorsal left jen ischemic infartc very much limited I would recommend Eliquis for treatment this type infarct i from small pentrating atrtery off mid jen. note to Dr. Sanders Objective - Vital Sign Vital Signs - 12hr 12/30/19 12/30/19 12/30/19 09:00 09:11 10:00 Temperature 97.9 F Pulse Rate 88 89 Pulse Rate [ 93 H Popliteal] Pulse Rate [ 93 H Posterior Tibial] Pulse Rate [ 93 H Radial] Respiratory 18 21 Rate Blood Pressure 166/71 O2 Sat by Pulse 100 Oximetry 12/30/19 12/30/19 12/30/19 10:39 10:40 11:35 Temperature Pulse Rate 93 H 93 H 93 H Pulse Rate [ Popliteal] Pulse Rate [ Posterior Tibial] Pulse Rate [ Radial] Respiratory Rate Blood Pressure 150/74 150/74 150/74 O2 Sat by Pulse 100 Oximetry 12/30/19 12/30/19 11:39 12:00 Temperature 98.4 F Pulse Rate 86 91 H Pulse Rate [ Popliteal] Pulse Rate [ Posterior Tibial] Pulse Rate [ Radial] Respiratory 18 Rate Blood Pressure 158/83 O2 Sat by Pulse 92 Oximetry - Laboratory Findings CBC and BMP: 12/26/19 13:53 12/30/19 06:00 Abnormal Lab Findings: Abnormal Labs 12/26/19 12/26/19 12/26/19 12:58 13:53 13:53 WBC 12.1 H MCV 99 H MCH 33 H RDW 15.3 H PT 24.4 H INR 2.15 H APTT 59.9 H Thrombin Time Chloride Carbon Dioxide BUN Creatinine Glucose POC Glucose 191 H Troponin T C-Reactive Protein Albumin HDL Cholesterol 12/26/19 12/26/19 12/26/19 13:53 13:53 22:57 WBC MCV MCH RDW PT INR APTT Thrombin Time 29.7 H Chloride 108.6 H Carbon Dioxide 17 L BUN 35 H Creatinine 2.1 H Glucose 229 H POC Glucose 229 H Troponin T 0.046 H C-Reactive Protein Albumin HDL Cholesterol 60 H 12/27/19 12/27/19 12/27/19 08:03 12:16 16:39 WBC MCV MCH RDW PT INR APTT Thrombin Time Chloride Carbon Dioxide BUN Creatinine Glucose POC Glucose 180 H 148 H 189 H Troponin T C-Reactive Protein Albumin HDL Cholesterol 12/27/19 12/28/19 12/29/19 21:39 21:49 09:02 WBC MCV MCH RDW PT INR APTT Thrombin Time Chloride Carbon Dioxide BUN Creatinine Glucose POC Glucose 152 H 139 H 123 H Troponin T C-Reactive Protein Albumin HDL Cholesterol 12/29/19 12/29/19 12/29/19 12:15 12:25 16:07 WBC MCV MCH RDW PT INR APTT Thrombin Time Chloride Carbon Dioxide BUN Creatinine Glucose POC Glucose 149 H 184 H Troponin T C-Reactive Protein 4.80 H Albumin HDL Cholesterol 12/30/19 12/30/19 12/30/19 06:00 08:22 12:21 WBC MCV MCH RDW PT INR APTT Thrombin Time Chloride 111.0 H Carbon Dioxide 17 L BUN 29 H Creatinine 1.8 H Glucose 127 H POC Glucose 134 H 223 H Troponin T C-Reactive Protein Albumin 3.0 L HDL Cholesterol
--- NOTE | 2019-12-30 17:41 | Progress Note ---
Assessment and Plan Assessment and plan: (1) CVA (cerebral vascular accident) Current Visit: Yes Status: Acute Qualifiers: Laterality of affected vessel: left Plan to address problem: Subacute CVA noted on MRI possible embolic. Discussed with Neurologist, agree with starting Eliquis. Will try to obtain further information about why patient is on Plavix. for now will start Elquis and asa May need to be on anticoagulation will await discussion with neurology first Patient previously on statin 20 mg at home now currently on atorvastatin 40 mg we will continue with the higher dose PT/OT (2) Acute exacerbation of CHF (congestive heart failure) Current Visit: Yes Status: Acute Qualifiers: Heart failure type: combined systolic and diastolic Qualified Code(s): I50.43 - Acute on chronic combined systolic (congestive) and diastolic (congestive) heart failure Plan to address problem: IV lasix for now Echocardiogram concerning for cardiomyopathy cardiology evaluation ongoing. (3) HLD (hyperlipidemia) Current Visit: No Status: Chronic Qualifiers: Hyperlipidemia type: mixed hyperlipidemia Qualified Code(s): E78.2 - Mixed hyperlipidemia Plan to address problem: Cont statins (4) HTN (hypertension) Current Visit: No Status: Chronic Qualifiers: Hypertension type: essential hypertension Qualified Code(s): I10 - Essential (primary) hypertension Plan to address problem: Cont antihypertensives (5) IDDM (insulin dependent diabetes mellitus) Current Visit: No Status: Chronic Plan to address problem: COnt Insulin and coverage (6) Peripheral neuropathy Current Visit: No Status: Chronic Qualifiers: Peripheral neuropathy type: polyneuropathy, unspecified Qualified Code(s): G62.9 - Polyneuropathy, unspecified Plan to address problem: Cnt Lyrica (7) Arthritis Current Visit: Yes Status: Chronic Plan to address problem: JENNIFER and CCp ds dna ordered (8) metabolic encephalopathy with intermittent hallucination Could be secondary to CVA Continue to monitor Fall precaution (9)DVT prophylaxis Current Visit: No Status: Acute Plan to address problem: On Heparin and GI prophylaxis Anticipate discharge in am, as patient refused SNF recommendation and needs DME prior to returning safely home. History Interval history: Patient seen and examined resting comfortably family concerned the patient still having intermittent periods of hallucination. No evidence of altered mental status at the time of my examination. No other adverse event reported to me. Findings on imaging studies discussed with daughter at bedside. Hospitalist Physical - Physical exam Narrative exam: VITAL SIGNS: Reviewed. GENERAL: The patient appears normally developed, Vital signs as documented. HEAD: No signs of head trauma. EYES: Pupils are equal. Extraocular motions intact. EARS: Hearing grossly intact. MOUTH: Oropharynx is normal. NECK: No adenopathy, no JVD. CHEST: Chest with clear breath sounds bilaterally. No wheezes, rales, or rhonchi. CARDIAC: Regular rate and rhythm. S1 and S2, without murmurs, gallops, or rubs. VASCULAR: No Edema. Peripheral pulses normal and equal in all extremities. ABDOMEN: Soft, non tender and non distended. No rebound or guarding, and no masses palpated. Bowel Sounds normal. MUSCULOSKELETAL: Good range of motion of all major joints. Extremities without clubbing, cyanosis or edema. NEUROLOGIC EXAM: Alert and oriented x 3 4/5 weakness noted in the right side upper extremity. Bilateral lower extremity weakness speech normal. Follows commands. PSYCHIATRIC: Mood normal. SKIN: detial exam as documented in skin assessment - Constitutional Vitals: Temp Pulse Resp BP Pulse Ox 98.2 F 72 18 131/64 97 12/30/19 16:36 12/30/19 16:36 12/30/19 16:36 12/30/19 16:36 12/30/19 16:36 General appearance: Present: no acute distress Results - Labs CBC & Chem 7: 12/26/19 13:53 12/30/19 06:00 Labs: Laboratory Last Values WBC 12.1 K/mm3 (4.5-11.0) H 12/26/19 13:53 RBC 3.69 M/mm3 (3.65-5.03) 12/26/19 13:53 Hgb 12.1 gm/dl (10.1-14.3) 12/26/19 13:53 Hct 36.5 % (30.3-42.9) 12/26/19 13:53 MCV 99 fl (79-97) H 12/26/19 13:53 MCH 33 pg (28-32) H 12/26/19 13:53 MCHC 33 % (30-34) 12/26/19 13:53 RDW 15.3 % (13.2-15.2) H 12/26/19 13:53 Plt Count 254 K/mm3 (140-440) 12/26/19 13:53 Lymph % (Auto) [employer] St[employer] Channeler 12/26/19 13:53 [place] % (Auto) [employer] Channeler 12/26/19 13:53 Eos % (Auto) [employer]er 12/26/19 13:53 Baso % (Auto) [employer]er 12/26/19 13:53 Lymph # [employer] 12/26/19 13:53 [place] # [employer]er 12/26/19 13:53 Eos # [employer]er 12/26/19 13:53 Baso # [employer]er 12/26/19 13:53 Seg Neutrophils % [employer] 12/26/19 13:53 Seg Neutrophils # [employer]er 12/26/19 13:53 ESR 77 mm/Hr (0-20) 12/29/19 14:48 PT 24.4 Sec. (12.2-14.9) H 12/26/19 13:53 INR 2.15 (0.87-1.13) H 12/26/19 13:53 APTT 59.9 Sec. (24.2-36.6) H 12/26/19 13:53 Thrombin Time 29.7 Sec. (15.1-19.6) H 12/26/19 13:53 Sodium 143 mmol/L (137-145) 12/30/19 06:00 Potassium 3.8 mmol/L (3.6-5.0) 12/30/19 06:00 Chloride 111.0 mmol/L (98-107) H 12/30/19 06:00 Carbon Dioxide 17 mmol/L (22-30) L 12/30/19 06:00 Anion Gap 19 mmol/L 12/30/19 06:00 BUN 29 mg/dL (7-17) H 12/30/19 06:00 Creatinine 1.8 mg/dL (0.7-1.2) H 12/30/19 06:00 Estimated GFR 32 ml/min 12/30/19 06:00 BUN/Creatinine Ratio 16 % 12/30/19 06:00 Glucose 127 mg/dL (65-100) H 12/30/19 06:00 POC Glucose 159 (70-105) H 12/30/19 16:43 Calcium 9.0 mg/dL (8.4-10.2) 12/30/19 06:00 Total Bilirubin 0.30 mg/dL (0.1-1.2) 12/30/19 06:00 AST 9 units/L (5-40) 12/30/19 06:00 ALT 10 units/L (7-56) 12/30/19 06:00 Alkaline Phosphatase 82 units/L (35-129) 12/30/19 06:00 Troponin T 0.046 ng/mL (0.00-0.029) H 12/26/19 13:53 C-Reactive Protein 4.80 mg/dL (0.00-1.30) H 12/29/19 12:15 Total Protein 6.3 g/dL (6.3-8.2) 12/30/19 06:00 Albumin 3.0 g/dL (3.9-5) L 12/30/19 06:00 Albumin/Globulin Ratio 0.9 % 12/30/19 06:00 Triglycerides 117 mg/dL (2-149) 12/26/19 13:53 Cholesterol 151 mg/dL (50-199) 12/26/19 13:53 LDL Cholesterol Direct 81 mg/dL (50-130) 12/26/19 13:53 HDL Cholesterol 60 mg/dL (40-59) H 12/26/19 13:53 Cholesterol/HDL Ratio 2.51 % 12/26/19 13:53 Active Medications - Current Medications Current Medications: Generic Name Dose Route Start Last Admin Trade Name Freq PRN Reason Stop Dose Admin Acetaminophen 650 mg 12/26/19 22:03 Tylenol PO Q4H PRN Pain MILD(1-3)/Fever >100.5/COLBY Allopurinol 100 mg 12/27/19 10:00 12/30/19 10:39 Zyloprim PO 100 mg QDAY CAROL[place] Administration Amlodipine Besylate 2.5 mg 12/27/19 10:00 12/30/19 10:40 Amlodipine PO 2.5 mg QDAY [place] Administration Aspirin 81 mg 12/29/19 20:00 12/30/19 10:40 Baby Aspirin PO 81 mg QDAY [place] Administration Atorvastatin Calcium 40 mg 12/27/19 22:00 12/29/19 21:11 Lipitor PO 40 mg QHS CAR[place] Administration Clopidogrel Bisulfate 75 mg 12/27/19 10:00 12/30/19 10:39 Plavix PO 75 mg QDAY CAR[place] Administration Docusate Sodium 100 mg 12/27/19 10:00 12/30/19 10:40 Colace PO 100 mg BID CAROLINA Administration Duloxetine HCl 30 mg 12/27/19 10:00 12/30/19 10:40 Cymbalta PO 30 mg QDAY CAR[place] Administration Famotidine 20 mg 12/31/19 10:00 Pepcid PO DAILY CAROLINA Hydromorphone HCl 0.5 mg 12/26/19 22:03 Dilaudid IV Q3H PRN Pain , Severe (7-10) Sodium Chloride 1,000 mls @ 75 mls/hr 12/27/19 18:15 12/30/19 14:45 Nacl 0.9% 1000 Ml IV 75 mls/hr DIRECT CAROLINA Administration Insulin Human Lispro 0 unit 12/27/19 00:15 12/30/19 17:28 Humalog SUB-Q 2 unit ACHS CAROLINA Administration Protocol Metoprolol Tartrate 50 mg 12/27/19 10:00 12/30/19 10:39 Metoprolol PO 50 mg QDAY [place] Administration Ondansetron HCl 4 mg 12/26/19 22:03 Zofran IV Q8H PRN Nausea And Vomiting Oxycodone/Acetaminophen 1 tab 12/26/19 22:03 Percocet 5/325 PO Q6H PRN Pain, Moderate (4-6) Pravastatin Sodium 40 mg 12/27/19 22:00 12/29/19 21:11 Pravachol PO 40 mg QHS CAROLINA Administration Pregabalin 50 mg 12/27/19 10:00 12/30/19 10:40 Pregabalin PO 50 mg QDAY [place] Administration Sodium Chloride 10 ml 12/27/19 10:00 12/30/19 10:41 Sodium Chloride Flush Syringe 10 Ml IV 10 ml BID [place] Administration Sodium Chloride 10 ml 12/26/19 22:03 Sodium Chloride Flush Syringe 10 Ml IV PRN PRN LINE FLUSH Nutrition/Malnutrition Assess - Dietary Evaluation Nutrition/Malnutrition Findings: Nutrition Notes Start: 12/27/19 14:21 Freq: Status: Active Protocol: Document 12/30/19 11:44 CC (Rec: 12/30/19 11:48 CC [email or web address]) Co-Sign 12/30/19 11:44 LP Nutrition Notes Initial or Follow up Reassessment Other Pertinent Diagnosis Ulcers on R and L heals, sacrum, AMS, HTN, DM, CALLUM on CKD, HLD Current Diet Cardiac/consistent CHO diet Labs/Tests BUN 29 Creat 1.8 Pertinent Medications Colace Height 5 ft 3 in Weight 79.4 kg [place] Body Weight (kg) 52.27 BMI 31.0 Intake Prior to Admission Good Weight Status Obese Subjective/Other Information Pt reported her appetite has been good and been consuming most of her meals. Pt reported she has not recieved Agus yet. Percent of energy/protein needs met: 100%/100% Burn Absent Trauma Absent Current % PO Good (75-100%) Minimum of two criteria No physical signs of malnutrition #1 Nutrition Diagnosis Increased nutrient needs ( specify in comment below) Diagnosis Progress(for reassessment Continues documentation) Is patient on ventilator? No Is Patient Ambulatory and/or Out of Bed No REE-([facility]-confined to bed) [phone] Calculation Used for Recommendations [facility] Additional Notes Pro needs: 82-99g/day (1.25-1. 5 g/kg AdjBW of 65.7kg) Nutrition Intervention Change Diet Order: Continue cardiac/consistent CHO diet Add Supplement/Snack (indicate name/kcal Agus BID /protein ) Provides kCal: 190 Provides Protein (gm) 5 Goal #1 continue to meet at least 80% of estimated calorie and protein needs Goal #2 wound healing Anticipated Discharge Needs: cardiac/consistent CHO diet w/ Agus BID Follow-Up By: 01/06/20 Additional Comments F/u for PO/Agus intakes
[2019-12-30] MEDS: PRAVASTATIN 40 MG TAB PO SCH (21:35)
[2019-12-30] MEDS: APIXABAN 5 MG TAB PO SCH (21:36)
[2019-12-31] MEDS: SODIUM CHLORIDE 0.9% 1000 ML 1,000 ML IV SCH (02:38)
[2019-12-31] MEDS: INSULIN LISPRO 100 UNIT/ML SUB-Q SCH ×2 (09:24→12:00)
[2019-12-31] MEDS ORDERED: FAMOTIDINE 20 MG TAB PO SCH (10:00)
[2019-12-31] MEDS: ASPIRIN 81 MG TAB CHEW PO SCH (10:05)
[2019-12-31] MEDS: DULoxetine 30 MG CAP PO SCH (10:05)
[2019-12-31] MEDS: PREGABALIN 25 MG CAP PO SCH (10:05)
[2019-12-31] MEDS: amLODIPine 10 MG TAB PO SCH (10:05)
[2019-12-31 10:06] VITALS: BP 161/77
[2019-12-31] MEDS: METOPROLOL TARTRATE 50 MG TAB PO SCH (10:06)
[2019-12-31] MEDS: APIXABAN 5 MG TAB PO SCH (10:06)
[2019-12-31] MEDS: DOCUSATE SODIUM 100 MG CAP PO SCH (10:07)
[2019-12-31] MEDS: allopurinoL 100 MG TAB PO SCH ×2 (10:07→10:08)
--- NOTE | 2019-12-31 10:20 | Progress Note ---
Assessment and Plan Dilated Cardiomyopathy, uncertain duration echo reports severely decreased left ventricular systolic function, ejection fraction 15-20%. There was also moderate mitral stenosis. 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 Otherwise, conservative cardiac management. Subjective Date of service: 12/31/19 Principal diagnosis: Rt side weakness,CHF exacerbation Interval history: Patient has no cardiac complaints. Objective Vital Signs Temp Pulse Resp BP BP Pulse Ox 12/31/19 10:06 94 H 161/77 12/31/19 10:05 94 H 161/77 12/31/19 08:21 98.2 F 76 18 142/80 95 12/31/19 04:49 98.1 F 92 H 20 150/71 96 12/30/19 19:28 98.1 F 82 16 125/56 99 12/30/19 16:36 98.2 F 72 18 131/64 97 12/30/19 12:00 91 H 12/30/19 11:39 98.4 F 86 18 158/83 92 12/30/19 11:35 93 H 150/74 100 12/30/19 10:40 93 H 150/74 12/30/19 10:39 93 H 150/74 - Physical Examination General: No Apparent Distress HEENT: Positive: PERRL Neck: Positive: trachea midline Cardiac: Positive: Reg Rate and Rhythm Lungs: Positive: Decreased Breath Sounds
[2019-12-31] MEDS ORDERED: hydrALAZINE 25 MG TAB PO SCH (12:00)
--- NOTE | 2019-12-31 13:54 | Discharge Summary ---
Providers - Providers Date of Admission: 12/26/19 19:44 Attending physician: ABDIRAHMAN SHIN MD 12/26/19 22:03 Consult to Physician [CONS] Routine Comment: Consulting Provider: RICHIE NORIEGA Physician Instructions: Reason For Exam: CVA 12/27/19 02:02 Consult to Wound/ET Nurse [CONS] Routine Reason For Exam: wound eval 12/28/19 15:00 Consult to Physician [CONS] Routine Comment: Consulting Provider: MELISSA MEMBRENO Physician Instructions: Reason For Exam: CHF Primary care physician: [employer] [facility] Hospitalization Reason for admission: CVA Condition: Stable Hospital course: Patient is an 89-year-old female present with a chief complaint of dizziness and right-sided weakness. Family states the patient has not been out of bed for the past 5 days. They state for the past 3 days the patient is complained of double vision. The patient complains of feeling as though the room is spinning and feels like she is falling whenever she is lying flat or standing up. Patient denies headache or pain of any type. Patient states she is felt weak on her right side for the past 3 to 4 days. Patient denies chest pain or shortness of breath. Patient admits to nausea but denies vomiting. * Initial CT scan of the head was unremarkable patient underwent an MRI as she continued to have symptoms of left-sided weakness. MRI was delayed by day as patient was unable to tolerate on the first attempt. Study revealed CVA subacute concerning for embolic source. Neurology did evaluate the patient on request and recommended patient be placed on Eliquis we did have a discussion with vascular/interventional radiologist and was in agreement that Plavix can be discontinued as this was done due to severe PAD in the past although patient was lost to follow-up. I also discussed importance of follow-up with family. They verbalized understanding. Rehab was recommended subacute but patient and family declined and would rather have this done at home. * Patient was also noted to have decompensated heart failure for which cardiology was consulted this also prolonged stay as patient needed to be optimized by IV Lasix. Unfortunately she went into acute kidney injury likely secondary to vasomotor nephropathy received some gentle hydration with Lasix being held and is now optimized and ready for discharge per Subacute CVA CALLUM on CKD III, likely underlying vasomotor nephropathy, Acute systolic congestive heart failure Hyperlipidemia Hypertension Possible seizure secondary to CVA Diabetes mellitus with hyperglycemia Acute metabolic encephalopathy with intermittent hallucination now resolved Arthritis Peripheral neuropathy Disposition: [id number] HOME [facility] Time spent for discharge: 35 minutes Core Measure Documentation - Palliative Care Palliative Care/ Comfort Measures: Not Applicable - Core Measures Any of the following diagnoses?: none Exam - Physical Exam Narrative exam: VITAL SIGNS: Reviewed. GENERAL: The patient appears normally developed, Vital signs as documented. HEAD: No signs of head trauma. EYES: Pupils are equal. Extraocular motions intact. EARS: Hearing grossly intact. MOUTH: Oropharynx is normal. NECK: No adenopathy, no JVD. CHEST: Chest with clear breath sounds bilaterally. No wheezes, rales, or rhonchi. CARDIAC: Regular rate and rhythm. S1 and S2, without murmurs, gallops, or rubs. VASCULAR: No Edema. Peripheral pulses normal and equal in all extremities. ABDOMEN: Soft, non tender and non distended. No rebound or guarding, and no masses palpated. Bowel Sounds normal. MUSCULOSKELETAL: Good range of motion of all major joints. Extremities without clubbing, cyanosis or edema. NEUROLOGIC EXAM: Alert and oriented x 3 4/5 weakness noted in the right side upper extremity. Bilateral lower extremity weakness speech normal. Follows commands. PSYCHIATRIC: Mood normal. SKIN: detail exam as documented in skin assessment - Constitutional Vitals: Temp Pulse Resp BP Pulse Ox 98.2 F 94 H 18 161/77 98 12/31/19 08:21 12/31/19 10:06 12/31/19 08:21 12/31/19 10:06 12/31/19 10:04 Plan Activity: advance as tolerated, fall precautions Diet: low fat, diabetic Special Instructions: record daily weights, record daily BP diary, record blood sugar diary, physical therapy, occupational therapy Follow up with: PRIMARY CARE, [Primary Care Provider] - 3-5 Days RICHIE NORIEGA MD [Staff Physician] - 7 Days MELISSA MEMBRENO MD [Staff Physician] - 7 Days SUDHAKAR DUNN MD [Staff Physician] - 7 Days Prescriptions: hydrALAZINE [Apresoline TAB] 25 mg PO BID #60 tablet Aspirin [Aspirin BABY CHEW TAB] 81 mg PO QDAY #30 tab.chew carvediloL [Coreg] 6.25 mg PO BID #60 tablet Apixaban [Eliquis] 5 mg PO Q12HR #60 tablet levETIRAcetam [Keppra TAB] 500 mg PO BID #60 tablet Famotidine [Pepcid] 20 mg PO DAILY #30 tablet
--- NOTE | 2019-12-31 14:20 | Event Note ---
Date: 12/31/[address] Sanders about dual antiplatelet therapy (ASA/PLAVIX). Patient will need to be transitioned to Eliquis. Recommend discontinuing Plavix and using low dose aspirin (81 mg EC) and Eliquis.
--- NOTE | 2019-12-31 17:16 | Progress Note ---
Subjective Date of service: 12/31/19 Principal diagnosis: Rt side weakness,CHF exacerbation Interval history: I am in total agreement with Dr. Driver on med management thanks Objective - Vital Sign Vital Signs - 12hr 12/31/19 12/31/19 12/31/19 08:00 08:21 10:00 Temperature 98.2 F Pulse Rate 87 76 Pulse Rate [ 94 H Popliteal] Pulse Rate [ 94 H Posterior Tibial] Pulse Rate [ 94 H Radial] Respiratory 18 20 Rate Blood Pressure Blood Pressure 142/80 [Right] O2 Sat by Pulse 95 Oximetry 12/31/19 12/31/19 12/31/19 10:04 10:05 10:06 Temperature Pulse Rate 93 H 94 H 94 H Pulse Rate [ Popliteal] Pulse Rate [ Posterior Tibial] Pulse Rate [ Radial] Respiratory Rate Blood Pressure 161/77 161/77 161/77 Blood Pressure [Right] O2 Sat by Pulse 98 Oximetry - Laboratory Findings CBC and BMP: 12/26/19 13:53 12/30/19 06:00 Abnormal Lab Findings: Abnormal Labs 12/26/19 12/26/19 12/26/19 12:58 13:53 13:53 WBC 12.1 H MCV 99 H MCH 33 H RDW 15.3 H PT 24.4 H INR 2.15 H APTT 59.9 H Thrombin Time Chloride Carbon Dioxide BUN Creatinine Glucose POC Glucose 191 H Troponin T C-Reactive Protein Albumin HDL Cholesterol 12/26/19 12/26/19 12/26/19 13:53 13:53 22:57 WBC MCV MCH RDW PT INR APTT Thrombin Time 29.7 H Chloride 108.6 H Carbon Dioxide 17 L BUN 35 H Creatinine 2.1 H Glucose 229 H POC Glucose 229 H Troponin T 0.046 H C-Reactive Protein Albumin HDL Cholesterol 60 H 12/27/19 12/27/19 12/27/19 08:03 12:16 16:39 WBC MCV MCH RDW PT INR APTT Thrombin Time Chloride Carbon Dioxide BUN Creatinine Glucose POC Glucose 180 H 148 H 189 H Troponin T C-Reactive Protein Albumin HDL Cholesterol 12/27/19 12/28/19 12/29/19 21:39 21:49 09:02 WBC MCV MCH RDW PT INR APTT Thrombin Time Chloride Carbon Dioxide BUN Creatinine Glucose POC Glucose 152 H 139 H 123 H Troponin T C-Reactive Protein Albumin HDL Cholesterol 02/12/29/19 12/29/19 12:15 12:25 16:07 WBC MCV MCH RDW PT INR APTT Thrombin Time Chloride Carbon Dioxide BUN Creatinine Glucose POC Glucose 149 H 184 H Troponin T C-Reactive Protein 4.80 H Albumin HDL Cholesterol 12/30/19 12/30/19 12/30/19 06:00 08:22 12:21 WBC MCV MCH RDW PT INR APTT Thrombin Time Chloride 111.0 H Carbon Dioxide 17 L BUN 29 H Creatinine 1.8 H Glucose 127 H POC Glucose 134 H 223 H Troponin T C-Reactive Protein Albumin 3.0 L HDL Cholesterol 12/30/19 12/30/19 12/31/19 16:43 21:05 12:30 WBC MCV MCH RDW PT INR APTT Thrombin Time Chloride Carbon Dioxide BUN Creatinine Glucose POC Glucose 159 H 224 H 219 H Troponin T C-Reactive Protein Albumin HDL Cholesterol
[2019-12-31] MEDS ORDERED: carvediloL 6.25 MG TAB PO SCH (22:00)
[2020-01-01 21:49] LABS: ANA Screen, IFA Positive (Negative)
== END 2019-12-31 18:34 | disposition home health service (06) | DRG 64 ==
LOC: ED 12:38 → 4A 19:44
PROVIDERS: ADMIT Internal Medicine; ATTEND Internal Medicine
DX: I63.9 Cerebral infarction, unspecified (principal); I50.43 Acute on chronic combined systolic (congestive) and diastolic (congestive) heart failure; G93.41 Metabolic encephalopathy; N17.0 Acute kidney failure with tubular necrosis; I13.0 Hypertensive heart and chronic kidney disease with heart failure and stage 1 through stage 4 chronic kidney disease, or unspecified chronic kidney disease; I42.0 Dilated cardiomyopathy; G81.91 Hemiplegia, unspecified affecting right dominant side; R42 Dizziness and giddiness; E11.22 Type 2 diabetes mellitus with diabetic chronic kidney disease; E11.42 Type 2 diabetes mellitus with diabetic polyneuropathy; N18.3 Chronic kidney disease, stage 3 (moderate); M19.90 Unspecified osteoarthritis, unspecified site; I73.9 Peripheral vascular disease, unspecified; E78.2 Mixed hyperlipidemia; R56.9 Unspecified convulsions; E11.65 Type 2 diabetes mellitus with hyperglycemia; Z88.2 Allergy status to sulfonamides
CPT/HCPCS: 36415; 70450; 70551; 80048; 80053; 80061; 82962; 84484; 85025; 85610; 85652; 85670; 85730; 86038; 86140; 86200; 86225; 93005; 93010; 93306; 93880; 96374; G0378; A9270-GY; J1815; J7030